=== PATIENT | female | born 1945 | race Caucasian/White ===

== ENCOUNTER 2016-10-04 11:18 | Day surgery (SDC) | payer MEDICARE ==
[2016-09-29 13:31] VITALS: BMI 55.4
[~2016-10-04 11:18] MED LIST: CLINDAMYCIN 900 MG in DEXTROSE 5% IN WATER 50 ML IVPB ONE; HYDROmorphone 1 MG/ML 1 ML SYRINGE IVP PRN; LACTATED RINGERS 1,000 ML IV SCH; LIDOCAINE 1% 20 ML VIAL (10MG/ML) FOR IV START INTRADERMA PRN; ONDANSETRON 4 MG/2 ML VIAL IVP ONE
== END 2016-10-04 12:25 | disposition home or self-care (01) ==
LOC: OR 11:18
PROVIDERS: ATTEND Orthopaedic Surgery Hand Surgery
DX: M79.646 Pain in unspecified finger(s) (principal); M19.031 Primary osteoarthritis, right wrist; R19.7 Diarrhea, unspecified; Z53.8 Procedure and treatment not carried out for other reasons

== ENCOUNTER → 2016-11-18 | Outpatient (CLI) | payer MEDICARE ==
--- NOTE | 2016-11-18 11:44 | MM ---
Reason for exam: screening (asymptomatic). Last mammogram was performed 1 year ago. History: Patient is postmenopausal. Family history of breast cancer in paternal cousin at age 69. Physical Findings: A clinical breast exam by your physician is recommended on an annual basis and results should be correlated with mammographic findings. MG Screening Mammo w CAD Bilateral CC and MLO view(s) were taken. Prior study comparison: November 17, 2015, bilateral MG screening mammo w CAD. November 15, 2014, bilateral MG screening mammo w CAD. There are scattered fibroglandular densities. Finding: There are typically benign vascular, round, grouped/clustered calcifications in both breasts. There is no discrete abnormality. ASSESSMENT: Benign, BI-RAD 2 RECOMMENDATION: Routine screening mammogram of both breasts in 1 year.
== END | disposition home or self-care (01) ==
LOC: RADMAMWWP 09:09
PROVIDERS: ATTEND Family Medicine
DX: Z12.31 Encounter for screening mammogram for malignant neoplasm of breast (principal)
CPT/HCPCS: 82565; 84132; 84520; 85025

== ENCOUNTER → 2016-11-18 | Outpatient (CLI) | payer MEDICARE ==
[2016-11-18 10:40] LABS: Blood Urea Nitrogen 17 mg/dL (7-17); Non-African American GFR(MDRD) >60 (>60 ml/min/1.73 sqM); Potassium 4.8 mmol/L (3.5-5.1)
[2016-11-18 10:42] LABS: Basophils % (A) 0 %; CH 24.8; CHCM 29.3; Eosinophils # (A) 0.4 k/uL (0-0.7); Eosinophils % (A) 4 %; HCT 29.5 % (34.0-46.0); HDW 2.63; HGB 8.6 gm/dL (11.4-16.0); Hypochromasia Marked; Luc # (Auto) 0.21; Luc % (Auto) 2; Lymphocytes # (A) 1.3 k/uL (1.0-4.8); Lymphocytes % (A) 13 %; MCH 24.8 pg (25.0-35.0); MCHC 29.2 g/dL (31.0-37.0); Mean Platelet Volume 6.5; Monocytes # (A) 0.6 k/uL (0-1.0); Monocytes % (A) 7 %; Neutrophils # (A) 7.2 k/uL (1.3-7.7); Neutrophils % (A) 74 %; RBC 3.47 m/uL (3.80-5.40); RDW 15.5 % (11.5-15.5); WBC 9.7 k/uL (3.8-10.6); WBC (Perox) 11.03
== END | disposition home or self-care (01) ==
LOC: LABPAT 09:48
PROVIDERS: ATTEND Orthopaedic Surgery Hand Surgery
DX: Z01.812 Encounter for preprocedural laboratory examination (principal)
CPT/HCPCS: 82565; 84132; 84520; 85025

== ENCOUNTER 2016-11-22 10:43 | Day surgery (SDC) | payer MEDICARE ==
[~2016-11-22 10:43] MED LIST changes: -CLINDAMYCIN 900 MG in DEXTROSE 5% IN WATER 50 ML IVPB ONE; -HYDROmorphone 1 MG/ML 1 ML SYRINGE IVP PRN; -LIDOCAINE 1% 20 ML VIAL (10MG/ML) FOR IV START INTRADERMA PRN; +MIDAZOLAM 2 MG/2 ML VIAL IV PRN; +Pre Op ABX Message 1 EACH MISC MISCELLANE ONE; +fentaNYL (PF) 50 MCG/ML 2 ML AMP IV PRN
[2016-11-22 11:22] LABS: Glucose,Whole Blood 202 mg/dL (75-99)
[2016-11-22 11:23] VITALS: RESP 18; TEMP 98.5
--- NOTE | 2016-11-22 12:19 | P.ONQ ---
Anesthesiology Proc Note - PNB - Peripheral Nerve Block Performed Right Axillary Single Time Out Performed: Yes Indication: Acute Post-Operative Pain, Analgesia Specifically requested for management of pain by DrShantell: Soy aMldonado Sedation Type: Sedate with meaningful contact maintained Preparation: Sterile Prep Position: Supine Catheter: None Needle Types: Other (see comment) (stimuplex) Needle Size: 50mm (2") Needle Gauge: Other (see comment) (22) Technique: Ultrasound Injectate: Other (see comment) (15 cc 2% lidocaine + 15cc .05% Robivicaine) Adjunct: Epinephrine (see comment for dilution ratio) (1:200,000) Narrative: Patient was quite heavyset and the structures in question were quite deep and rather poorly visualized. Blood Aspirated: No Pain Paresthesia on Injection Noted: No Resistance on Injection: Normal Events: Uneventful and Well Tolerated
[2016-11-22] MEDS ORDERED: LIDOCAINE 2%-EPI 1:100,000 20 ML VIAL ONE (12:41)
[2016-11-22] MEDS ORDERED: ROPIVACAINE 5 MG/ML 30 ML VIAL ONE (12:41)
[2016-11-22] MEDS ORDERED: KETAMINE 10 MG/ML 20 ML VIAL ONE (12:41)
[2016-11-22] MEDS ORDERED: GLYCOPYRROLATE 0.2 MG/ML 2 ML VIAL ONE (12:41)
[2016-11-22] MEDS ORDERED: MIDAZOLAM 2 MG/2 ML VIAL ONE (12:41)
[2016-11-22] MEDS ORDERED: PROPOFOL 10 MG/ML 20 ML VIAL IV ONE (12:41)
[2016-11-22] MEDS ORDERED: CLINDAMYCIN IRRIGATION ONE (13:09)
[2016-11-22] MEDS ORDERED: SODIUM CHLORIDE 0.9% IRRIGATION ONE (13:09)
[2016-11-22] MEDS ORDERED: LACTATED RINGERS 1,000 ML IV ONE (13:22)
[2016-11-22 14:09] VITALS: BP 130/60; PULSE 99
[2016-11-22 14:18] LABS: Glucose,Whole Blood 163 mg/dL (75-99)
--- NOTE | 2016-11-30 07:53 | OP ---
DATE OF SERVICE: 11/22/2016 SURGEON: JAMEL SMITH DO HANDKERCHIEF PRESSER: PREOPERATIVE DIAGNOSES: 1. Osteoarthritis MP joint right middle finger. 2. Right carpal tunnel syndrome. POSTOPERATIVE DIAGNOSES: 1. Osteoarthritis MP joint right middle finger. 2. Right carpal tunnel syndrome. OPERATION: 1. Silastic MP arthroplasty right middle finger. 2. Open carpal tunnel release. ANESTHESIA: ESTIMATED BLOOD LOSS: SPECIMENS REMOVED: COMPLICATIONS: OPERATIVE FINDINGS: DESCRIPTION OF PROCEDURE: A 71-year-old woman is taken to the operative suite, given IV sedation to supplement an extended digital block of her right middle finger and midline carpal tunnel incision in the proximal palm. Anesthesia was provided with a combination of Xylocaine and Marcaine, both without epinephrine. Her hand was prepped and draped in the usual manner, was then elevated, exsanguinated and cuff was inflated to 250 mmHg. Open carpal tunnel release was first performed in the usual manner. A proximal midline incision 1 to 2 cm was used. Dissection was taken through the palmar fascia to the transverse carpal ligament which was incised under direct vision. A limited visualization of the carpal tunnel demonstrated no abnormalities. This wound was irrigated and attention was turned to the MP joint of the right middle finger. A transverse incision was made over the MP joint. The extensor mechanism was identified and incised along its ulnar border and included an ulnar intrinsic release. The extensor mechanism was then reflected radially, exposing the capsule which was incised longitudinally in the dorsal aspect. A partial collateral ligament release was performed, exposing the head of the metacarpal. This was osteotomized using an oscillating saw. An awl was then used to begin the intramedullary canals of both the third metacarpal and the proximal phalanx of the middle finger. Subsequently larger rasps were then used to enlarge the canals into an appropriate size prosthesis was noted. The wound was thoroughly irrigated. After a trial prosthesis was used, the real prosthesis was inserted with no touch technique. The capsule was closed with 4-0 PDS suture. The extensor mechanism was noted to be stable and in alignment. Tourniquet was released. Hemostasis was satisfactory. Skin was closed with 5-0 nylon suture. Soft, bulky dressing was applied and patient was taken to the recovery room in satisfactory condition.
== END 2016-11-22 14:55 | disposition home or self-care (01) ==
LOC: OR 10:43
PROVIDERS: ATTEND Orthopaedic Surgery Hand Surgery
DX: G56.01 Carpal tunnel syndrome, right upper limb (principal); M19.041 Primary osteoarthritis, right hand; I25.10 Atherosclerotic heart disease of native coronary artery without angina pectoris; I10 Essential (primary) hypertension; Z87.891 Personal history of nicotine dependence; I25.2 Old myocardial infarction; E78.5 Hyperlipidemia, unspecified; E11.9 Type 2 diabetes mellitus without complications; Z79.4 Long term (current) use of insulin; Z79.84 Long term (current) use of oral hypoglycemic drugs; Z79.02 Long term (current) use of antithrombotics/antiplatelets; Z79.891 Long term (current) use of opiate analgesic; Z79.899 Other long term (current) drug therapy; Z88.1 Allergy status to other antibiotic agents; Z88.5 Allergy status to narcotic agent; Z88.0 Allergy status to penicillin; Z88.8 Allergy status to other drugs, medicaments and biological substances
CPT/HCPCS: 64721; 26536; 64415; C1713; J2250; J2405; J3010; J2795; J2704

== ENCOUNTER → 2017-12-06 | Outpatient (CLI) | payer MEDICARE ==
--- NOTE | 2017-12-07 10:50 | MM ---
Reason for exam: screening (asymptomatic). Last mammogram was performed 1 year and 1 month ago. History: Patient is postmenopausal. Family history of breast cancer in paternal cousin at age 69. Physical Findings: A clinical breast exam by your physician is recommended on an annual basis and results should be correlated with mammographic findings. MG Screening Mammo w CAD Bilateral CC, MLO, and XCCL view(s) were taken. Prior study comparison: November 18, 2016, bilateral MG screening mammo w CAD. November 17, 2015, bilateral MG screening mammo w CAD. There are scattered fibroglandular densities. There are typically benign round calcifications in both breasts. There is no discrete abnormality. ASSESSMENT: Benign, BI-RAD 2 RECOMMENDATION: Routine screening mammogram of both breasts in 1 year.
== END | disposition home or self-care (01) ==
LOC: RADMAMWWP 10:51
PROVIDERS: ATTEND Family Medicine
DX: Z12.31 Encounter for screening mammogram for malignant neoplasm of breast (principal)
CPT/HCPCS: 77067

== ENCOUNTER → 2018-12-07 | Outpatient (CLI) | payer MEDICARE ==
[2018-12-07 14:40] LABS: Anisocytosis Slight; HCT 30.7 % (34.0-46.0); HGB 8.9 gm/dL (11.4-16.0); Hypochromasia Marked; MCH 25.6 pg (25.0-35.0); MCHC 28.8 g/dL (31.0-37.0); MCV 88.9 fL (80.0-100.0); Mean Platelet Volume 6.8; Platelet Count 440 k/uL (150-450); RBC 3.46 m/uL (3.80-5.40); RDW 16.5 % (11.5-15.5); Reticulocyte % 1.8 % (0.5-2.0); WBC 9.7 k/uL (3.8-10.6)
[2018-12-07 14:53] LABS: Albumin 3.9 g/dL (3.5-5.0); Calcium 9.3 mg/dL (8.4-10.2); Potassium 5.7 mmol/L (3.5-5.1); Total Bilirubin 0.2 mg/dL (0.2-1.3); Total Protein 7.4 g/dL (6.3-8.2)
[2018-12-07 20:46] LABS: Iron Saturation 6.15 (12.00-45.00); Vitamin D 25 Hydroxy 29.2 ng/mL (30.0-100.0)
--- NOTE | 2018-12-08 10:50 | MM ---
Reason for exam: screening (asymptomatic). Last mammogram was performed 1 year ago. History: Patient is postmenopausal. Family history of breast cancer in paternal cousin at age 69. Physical Findings: A clinical breast exam by your physician is recommended on an annual basis and results should be correlated with mammographic findings. MG Screening Mammo w CAD Bilateral CC and MLO view(s) were taken. Prior study comparison: December 06, 2017, bilateral MG screening mammo w CAD. November 18, 2016, bilateral MG screening mammo w CAD. There are scattered fibroglandular densities. There is no discrete abnormality. No significant changes when compared with prior studies. ASSESSMENT: Negative, BI-RAD 1 RECOMMENDATION: Routine screening mammogram of both breasts in 1 year.
== END | disposition home or self-care (01) ==
LOC: RADMAMWWP 13:25
PROVIDERS: ATTEND Family Medicine
DX: Z12.31 Encounter for screening mammogram for malignant neoplasm of breast (principal); I10 Essential (primary) hypertension; E11.9 Type 2 diabetes mellitus without complications; E78.5 Hyperlipidemia, unspecified; D64.9 Anemia, unspecified; E53.8 Deficiency of other specified B group vitamins
CPT/HCPCS: 36415; 77067; 80053; 82306; 82728; 83036; 83540; 83550; 85027; 85045

== ENCOUNTER → 2019-04-19 | Outpatient (CLI) | payer MEDICARE ==
--- NOTE | 2019-04-19 17:00 | XR ---
EXAMINATION TYPE: XR chest 2V DATE OF EXAM: 04/19/2019 COMPARISON: Prior chest x-ray 06/01/2016 HISTORY: Shortness of breath, cough TECHNIQUE: Frontal and lateral views of the chest are obtained. FINDINGS: Patient is rotated. Strand-like densities at the lung bases are noted. There is no focal ai r space opacity, pleural effusion, or pneumothorax seen. The cardiac silhouette size is within dusty l limits, stable. The osseous structures are intact. IMPRESSION: Some subsegmental basilar atelectatic changes are noted. Follow-up as indicated.
== END | disposition home or self-care (01) ==
LOC: RADXRMAIN 13:56
PROVIDERS: ATTEND Family Medicine
DX: J98.11 Atelectasis (principal)
CPT/HCPCS: 71046

== ENCOUNTER 2019-11-04 01:26 | Observation (INO) | payer MEDICARE ==
--- NOTE | 2019-11-04 04:17 | XR ---
EXAMINATION TYPE: XR chest 1V portable DATE OF EXAM: 11/04/2019 COMPARISON: 04/19/2019 HISTORY: Chest pain TECHNIQUE: FINDINGS: Heart and mediastinum are normal. Lungs are clear. Diaphragm is normal. Bony thorax appears normal. There are chest leads. IMPRESSION: Normal chest. No change.
[2019-11-04 04:24] LABS: Anisocytosis Slight; Basophils % (A) 0 %; Eosinophils # (A) 0.3 k/uL (0-0.7); Eosinophils % (A) 2 %; HCT 25.2 % (34.0-46.0); HGB 7.4 gm/dL (11.4-16.0); Hypochromasia Marked; Lymphocytes # (A) 1.5 k/uL (1.0-4.8); Lymphocytes % (A) 13 %; MCH 22.2 pg (25.0-35.0); MCHC 29.4 g/dL (31.0-37.0); MCV 75.7 fL (80.0-100.0); Mean Platelet Volume 7.2; Microcytosis Moderate; Monocytes # (A) 0.8 k/uL (0-1.0); Monocytes % (A) 7 %; Neutrophils # (A) 8.7 k/uL (1.3-7.7); Neutrophils % (A) 76 %; Platelet Count 499 k/uL (150-450); RBC 3.32 m/uL (3.80-5.40); RDW 18.3 % (11.5-15.5); WBC 11.5 k/uL (3.8-10.6)
[2019-11-04 04:33] LABS: ALT 11 U/L (4-34); AST 21 U/L (14-36); African American GFR (CKD) 84 (>60 ml/min/1.73 sqM); Albumin 3.4 g/dL (3.5-5.0); Alkaline Phosphatase 67 U/L (38-126); Amylase <30 U/L (30-110); Anion Gap 8 mmol/L; Blood Urea Nitrogen 25 mg/dL (7-17); Carbon Dioxide 23 mmol/L (22-30); Chloride 106 mmol/L (98-107); Glucose 138 mg/dL (74-99); Magnesium 1.8 mg/dL (1.6-2.3); Non-African American GFR(CKD) 73 (>60 ml/min/1.73 sqM); Potassium 4.4 mmol/L (3.5-5.1); Sodium 137 mmol/L (137-145); Total Bilirubin 0.1 mg/dL (0.2-1.3); Total Protein 6.9 g/dL (6.3-8.2)
[2019-11-04 05:15] LABS: Partial Thromboplastin Time 23.6 sec (22.0-30.0); Prothrombin Time 10.2 sec (9.0-12.0)
[2019-11-04] MEDS ORDERED: NITROGLYCERIN SL TABS 0.4 MG TAB SUBLINGUAL PRN ×2 (05:55→11:32)
[2019-11-04] MEDS ORDERED: ENOXAPARIN 150 MG/ML SYRINGE SQ STA (06:00)
--- NOTE | 2019-11-04 06:01 | ED ---
Chest Pain HPI - General Chief Complaint: Chest Pain Stated Complaint: Chest Pain Time Seen by Provider: 11/04/19 03:18 Source: patient, EMS Mode of arrival: EMS Limitations: no limitations - History of Present Illness MD Complaint: chest pain -: hour(s) Onset: during rest Pain Location: substernal Pain Radiation: LUE Severity: mild Quality: heaviness Consistency: now resolved Improves With: nothing Worsens With: nothing Anginal Symptoms: dyspnea Treatments Prior to Arrival: nitroglycerin - Related Data Home Medications Medication Instructions Recorded Confirmed Ascorbic Acid [Vitamin C] 500 mg PO DAILY 08/21/15 11/04/19 Aspirin 81 mg PO HS 08/21/15 11/04/19 Atorvastatin Calcium [Lipitor] 20 mg PO Q48H 08/21/15 11/04/19 Clopidogrel Bisulfate [Plavix] 75 mg PO DAILY 08/21/15 11/04/19 Cranberry Fruit Concentrate [Azo 250 mg PO BID 08/21/15 11/04/19 Cranberry] Ezetimibe [Zetia] 10 mg PO Q48H 08/21/15 11/04/19 Gabapentin 300 mg PO W/SUPPER 08/21/15 11/04/19 INSULIN LISPRO (HumaLOG) [HumaLOG] 9 units SQ AC-BRKFST 08/21/15 11/04/19 Isosorbide Mononitrate ER [Imdur] 60 mg PO DAILY 08/21/15 11/04/19 Metoprolol Tartrate [Lopressor] 50 mg PO QAM 08/21/15 11/04/19 Pioglitazone HCl [Actos] 15 mg PO DAILY 08/21/15 11/04/19 amLODIPine [Norvasc] 5 mg PO HS 08/21/15 11/04/19 Calcium Carb-Vit D 500Mg-200Un 1 tab PO DAILY 06/01/16 11/04/19 [Oscal 500+D] Cholecalciferol [Vitamin D3] 1,000 unit PO DAILY 06/01/16 11/04/19 INSULIN LISPRO (humaLOG) [HumaLOG] 8 units SQ DAILY@1200 06/01/16 11/04/19 INSULIN LISPRO (humaLOG) [HumaLOG] 9 units SQ AC-SUPPER 06/01/16 11/04/19 Insulin Glargine [Lantus] 28 unit SQ HS 06/01/16 11/04/19 Metoprolol Tartrate [Lopressor] 25 mg PO HS 06/01/16 11/04/19 Gabapentin 300 mg PO HS 11/17/16 11/04/19 Multivitamins, Thera [Multivitamin 1 tab PO DAILY 11/17/16 11/04/19 (formulary)] Tramadol(Dose Unknown) 1 tab PO DAILY PRN 11/17/16 11/04/19 metFORMIN HCL [Glucophage] 1,000 mg PO BID 11/17/16 11/04/19 Celecoxib [CeleBREX] 200 mg PO DAILY 11/04/19 11/04/19 Furosemide [Lasix] 20 mg PO DAILY 11/04/19 11/04/19 predniSONE 5 mg PO DAILY 11/04/19 11/04/19 Previous Rx's Medication Instructions Recorded Cyanocobalamin [Vitamin B-12] 500 mcg PO DAILY #30 tablet 06/02/16 Allergies Allergy/AdvReac Type Severity Reaction Status Date / Time acetaminophen [From [place]] Allergy Severe Diarrhea Verified 11/04/19 01:41 hydrocodone [From [place]] Allergy Severe Diarrhea Verified 11/04/19 01:41 meloxicam [From Mobic] Allergy Diarrhea Verified 11/04/19 01:41 Penicillins Allergy Rash/Hives Verified 11/04/19 01:41 tobramycin Allergy Rash/Hives Verified 11/04/19 01:41 Review of Systems ROS Statement: Those systems with pertinent positive or pertinent negative responses have been documented in the HPI. ROS Other: All systems not noted in ROS Statement are negative. Constitutional: Denies: fever, chills Respiratory: Reports: dyspnea. Denies: cough, wheezes Cardiovascular: Reports: chest pain. Denies: palpitations, orthopnea, edema, syncope Gastrointestinal: Denies: abdominal pain, nausea, vomiting, diarrhea, constipation Genitourinary: Denies: dysuria, hematuria Musculoskeletal: Denies: back pain Skin: Denies: rash Neurological: Denies: headache, weakness, numbness EKG Findings - EKG Comments: EKG Findings:: Possible old inferior infarct. - EKG Results: EKG: interpreted by TRISHAD, sinus rhythm, normal axis, normal QRS, normal ST/T EKG shows: tachycardia (Rate 103 bpm) Past Medical History Past Medical History: Chest Pain / Angina, Diabetes Mellitus, Hearing Disorder / Deafness, Hyperlipidemia, Hypertension, Myocardial Infarction ([place]), Osteoarthritis (OA) Additional Past Medical History / Comment(s): power chair- ambulates only a few feet, swelling of lower leg comes and goes, urinary leakage , neuropathy Last Myocardial Infarction Date:: 1991 History of Any Multi-Drug Resistant Organisms: None Reported Past Surgical History: Appendectomy, Heart Catheterization, Hysterectomy, Orthopedic Surgery, Tonsillectomy Additional Past Surgical History / Comment(s): ki hip replacements, hemorrhoidectomy Past Anesthesia/Blood Transfusion Reactions: Postoperative Nausea & Vomiting (PONV) Past Psychological History: No Psychological Hx Reported Smoking Status: Former smoker Past Alcohol Use History: None Reported Past Drug Use History: None Reported - Past Family History Father Family Medical History: Myocardial Infarction ([place]) Mother Family Medical History: CVA/TIA, Diabetes Mellitus Sister(s) Family Medical History: Cancer General Exam Limitations: no limitations General appearance: alert, in no apparent distress Head exam: Present: atraumatic, normocephalic Eye exam: Present: normal appearance. Absent: scleral icterus, conjunctival injection Neck exam: Present: normal inspection Respiratory exam: Present: normal lung sounds bilaterally. Absent: respiratory distress, wheezes, rales, rhonchi, stridor Cardiovascular Exam: Present: regular rate, normal rhythm, systolic murmur. Absent: diastolic murmur, rubs, gallop GI/Abdominal exam: Present: soft. Absent: distended, tenderness, guarding, rebound Extremities exam: Present: normal inspection, normal capillary refill. Absent: pedal edema, calf tenderness Back exam: Present: normal inspection. Absent: CVA tenderness (R), CVA tenderness (L) Neurological exam: Present: alert Skin exam: Present: warm, dry, intact, normal color. Absent: rash Course Vital Signs 11/04/19 01:35 Temperature 98.5 F Pulse Rate 106 H Respiratory 16 Rate Blood Pressure 129/58 O2 Sat by Pulse 97 Oximetry Disposition Clinical Impression: Chest pain Disposition: ADMITTED IP TO THIS HOSP Condition: Fair
[2019-11-04 07:26] LABS: Glucose,Whole Blood 176 mg/dL (75-99)
[2019-11-04] MEDS ORDERED: ATORVASTATIN 20 MG TAB PO SCH (09:00)
[2019-11-04] MEDS ORDERED: metFORMIN 500 MG TAB PO SCH (09:00)
[2019-11-04] MEDS ORDERED: METOPROLOL TARTRATE 50 MG TAB PO SCH ×2 (09:00→21:00)
--- NOTE | 2019-11-04 09:59 | P.CRDCN ---
History of Present Illness Consult date: 11/04/19 Requesting physician: Val Spears Reason for Consult (text): chest pain Chief complaint: chest pain History of present illness: This is a pleasant 73-year-old female patient who is followed with Dr. Bebo Barajas in the office in the past. Has a past medical history of hypertension, hyperlipidemia, diabetes, significant arthritis, CAD with prior NV in 1991 and anemia with no known source of bleeding according to the patient. Presented to the emergency department with complaints of midsternal chest discomfort she described as a burning type pain that occurred at rest. She did take sublingual nitro at home without relief as well as 4 baby aspirin. According to the patient the pain subsided shortly after arrival here. She was prompted to call EMS because his symptoms were very similar to what she experienced with her NV in 1991. At that time she did undergo cardiac catheterization and intervention for a blockage which according to the patient reoccluded and a subsequent cardia c catheterization showed collaterals. She has not followed up with Dr. JENNIFER Barajas recently. Her mobility is quite limited due to arthritis and she uses a motorized scooter and walker. EKG on admission showed sinus tachycardia with some artifact but no clear-cut evidence of acute ischemia. Chest x-ray showed normal chest, no change. Labs on admission showed a white blood cell count 11,500, hemoglobin 7.4, BUN 25, creatinine 0.8, and troponin 0.053. Hemoglobin on 09/20/2019 was also 7.4. Upon examination, patient is resting comfortably in bed. She's got no further complaints of chest discomfort. She does have complaints of dyspnea on exertion but this is stable and unchanged from her ba seline. Complains of chronic edema in the right lower extremity. Denies complaints of palpitations, dizziness, lightheadedness, syncope or near syncope. She's had no nausea and vomiting. Past Medical History Past Medical History: Chest Pain / Angina, Diabetes Mellitus, Hearing Disorder / Deafness, Hyperlipidemia, Hypertension, Myocardial Infarction ([place]), Osteoarthritis (OA) Additional Past Medical History / Comment(s): power chair- ambulates only a few feet, swelling of lower leg comes and goes, urinary leakage , neuropathy Last Myocardial Infarction Date:: 1991 History of Any Multi-Drug Resistant Organisms: None Reported Past Surgical History: Appendectomy, Heart Catheterization, Hysterectomy, Orthopedic Surgery, Tonsillectomy Additional Past Surgical History / Comment(s): ki hip replacements, hemorrhoidectomy Past Anesthesia/Blood Transfusion Reactions: Postoperative Nausea & Vomiting (PONV) Past Psychological History: No Psychological Hx Reported Smoking Status: Former smoker Past Alcohol Use History: None Reported Additional Past Alcohol Use History / Comment(s): smoked for 29 years 1ppd, quit november 1991 Past Drug Use History: None Reported - Past Family History Father Family Medical History: Myocardial Infarction ([place]) Mother Family Medical History: CVA/TIA, Diabetes Mellitus Sister(s) Family Medical History: Cancer Medications and Allergies Home Medications Medication Instructions Recorded Confirmed Type Ascorbic Acid [Vitamin C] 500 mg PO DAILY 08/21/15 11/04/19 History Aspirin 81 mg PO HS 08/21/15 11/04/19 History Atorvastatin Calcium [Lipitor] 20 mg PO Q48H 08/21/15 11/04/19 History Clopidogrel Bisulfate [Plavix] 75 mg PO DAILY 08/21/15 11/04/19 History Cranberry Fruit Concentrate [Azo 250 mg PO BID 08/21/15 11/04/19 History Cranberry] Ezetimibe [Zetia] 10 mg PO Q48H 08/21/15 11/04/19 History Gabapentin 300 mg PO W/SUPPER 08/21/15 11/04/19 History INSULIN LISPRO (HumaLOG) [HumaLOG] 9 units SQ AC-BRKFST 08/21/15 11/04/19 History Isosorbide Mononitrate ER [Imdur] 60 mg PO DAILY 08/21/15 11/04/19 History Metoprolol Tartrate [Lopressor] 50 mg PO QAM 08/21/15 11/04/19 History Pioglitazone HCl [Actos] 15 mg PO DAILY 08/21/15 11/04/19 History amLODIPine [Norvasc] 5 mg PO HS 08/21/15 11/04/19 History Calcium Carb-Vit D 500Mg-200Un 1 tab PO DAILY 06/01/16 11/04/19 History [Oscal 500+D] Cholecalciferol [Vitamin D3] 1,000 unit PO DAILY 06/01/16 11/04/19 History INSULIN LISPRO (humaLOG) [HumaLOG] 8 units SQ DAILY@1200 06/01/16 11/04/19 History INSULIN LISPRO (humaLOG) [HumaLOG] 9 units SQ AC-SUPPER 06/01/16 11/04/19 History Insulin Glargine [Lantus] 28 unit SQ HS 06/01/16 11/04/19 History Metoprolol Tartrate [Lopressor] 25 mg PO HS 06/01/16 11/04/19 History Cyanocobalamin [Vitamin B-12] 500 mcg PO DAILY #30 tablet 06/02/16 11/04/19 Rx Gabapentin 300 mg PO HS 11/17/16 11/04/19 History Multivitamins, Thera [Multivitamin 1 tab PO DAILY 11/17/16 11/04/19 History (formulary)] Tramadol(Dose Unknown) 1 tab PO DAILY PRN 11/17/16 11/04/19 History metFORMIN HCL [Glucophage] 1,000 mg PO BID 11/17/16 11/04/19 History Celecoxib [CeleBREX] 200 mg PO DAILY 11/04/19 11/04/19 History Furosemide [Lasix] 20 mg PO DAILY 11/04/19 11/04/19 History predniSONE 5 mg PO DAILY 11/04/19 11/04/19 History Allergies Allergy/AdvReac Type Severity Reaction Status Date / Time acetaminophen [From [place]] Allergy Severe Diarrhea Verified 11/04/19 01:41 hydrocodone [From [place]] Allergy Severe Diarrhea Verified 11/04/19 01:41 meloxicam [From Mobic] Allergy Diarrhea Verified 11/04/19 01:41 Penicillins Allergy Rash/Hives Verified 11/04/19 01:41 tobramycin Allergy Rash/Hives Verified 11/04/19 01:41 Physical Exam Vitals: Vital Signs Temp Pulse Pulse Resp BP BP Pulse Ox 11/04/19 06:59 97.9 F 95 18 145/71 95 11/04/19 06:31 76 16 131/65 100 11/04/19 01:35 98.5 F 106 H 16 129/58 97 Intake and Output 11/03/19 11/04/19 11/04/19 21:59 06:59 14:59 Other: Weight PHYSICAL EXAMINATION: HEENT: Head is atraumatic, normocephalic. Pupils equal, round. Neck is supple. There is no elevated jugular venous pressure. HEART EXAMINATION: Heart sounds regular, S1 and S2 with a systolic murmur. CHEST EXAMINATION: Lungs reveal expiratory wheezing throughout. No chest wall tenderness is noted on palpation or with deep breathing. ABDOMEN: Soft, obese, nontender. Bowel sounds are heard. No organomegaly noted. EXTREMITIES: 1+ peripheral pulses with evidence of mild peripheral edema and no calf tenderness noted. NEUROLOGIC patient is awake, alert and oriented x3. . Results 11/04/19 04:13 11/04/19 04:13 Cardiac Enzymes 11/04/19 11/04/19 Range/Units 04:13 04:13 AST 21 (14-36) U/L Troponin I 0.053 H* (0.000-0.034) ng/mL Coagulation 11/04/19 Range/Units 04:56 PT 10.2 (9.0-12.0) sec APTT 23.6 (22.0-30.0) sec CBC 11/04/19 Range/Units 04:13 WBC 11.5 H (3.8-10.6) k/uL RBC 3.32 L (3.80-5.40) m/uL Hgb 7.4 L (11.4-16.0) gm/dL Hct 25.2 L (34.0-46.0) % Plt Count 499 H (150-450) k/uL Comprehensive Metabolic Panel 11/04/19 Range/Units 04:13 Sodium 137 (137-145) mmol/L Potassium 4.4 (3.5-5.1) mmol/L Chloride 106 (98-107) mmol/L Carbon Dioxide 23 (22-30) mmol/L BUN 25 H (7-17) mg/dL Creatinine 0.80 (0.52-1.04) mg/dL Glucose 138 H (74-99) mg/dL Calcium 9.0 (8.4-10.2) mg/dL AST 21 (14-36) U/L ALT 11 (4-34) U/L Alkaline Phosphatase 67 (38-126) U/L Total Protein 6.9 (6.3-8.2) g/dL Albumin 3.4 L (3.5-5.0) g/dL Current Medications Generic Name Dose Route Start Last Admin Trade Name Freq PRN Reason Stop Dose Admin Amlodipine Besylate 5 mg 11/04/19 21:00 Norvasc PO HS [facility] Ascorbic Acid 500 mg 11/04/19 09:00 Vitamin C PO DAILY [facility] Atorvastatin Calcium 20 mg 11/04/19 09:00 Lipitor PO Q48H [facility] Cholecalciferol 1,000 unit 11/04/19 09:00 Vitamin D3 (25 Mcg = 1000 Iu) PO DAILY [facility] Clopidogrel Bisulfate 75 mg 11/04/19 09:00 Plavix PO DAILY [facility] Ezetimibe 10 mg 11/05/19 09:00 Zetia PO Q48H [facility] Furosemide 20 mg 11/04/19 09:00 Lasix PO DAILY [facility] Gabapentin 300 mg 11/04/19 17:30 Neurontin PO W/SUPPER [facility] Gabapentin 300 mg 11/04/19 21:00 Neurontin PO HS [facility] Insulin Detemir 28 unit 11/04/19 21:00 Levemir SQ HS [facility] Isosorbide Mononitrate 60 mg 11/04/19 09:00 Imdur PO DAILY [facility] Metformin HCl 1,000 mg 11/04/19 09:00 Glucophage PO BID [facility] Metoprolol Tartrate 50 mg 11/04/19 09:00 Lopressor PO QAM [facility] Metoprolol Tartrate 25 mg 11/04/19 21:00 Lopressor PO HS [facility] Nitroglycerin 0.4 mg 11/04/19 05:55 Nitrostat SUBLINGUAL Q5M PRN Chest Pain Non-Formulary Medication 200 mg 11/04/19 09:00 Celecoxib [Celebrex] PO DAILY [facility] Pioglitazone HCl 15 mg 11/04/19 09:00 Actos PO DAILY [facility] Prednisone 5 mg 11/04/19 09:00 PO DAILY [facility] Sodium Chloride 10 ml 11/04/19 09:00 Saline Flush IV BID [facility] Intake and Output 11/03/19 11/04/19 11/04/19 21:59 06:59 14:59 Other: Weight 11/04/19 04:13 11/04/19 04:13 Assessment and Plan Assessment: #1 chest pain, similar to symptoms with previous NV, initial troponin mildly abnormal #2 prior history of CAD and NV in the past #3 hypertension #4 diabetes mellitus type 2 #5 hyperlipidemia #6 morbid obesity #7 arthritis Plan: From cardiology perspective, we will stop Plavix and add aspirin 81 mg by mouth daily. Obtain a 2-D echo with Doppler to assess cardiac structure and function. Continue to follow the trend of the troponins. We will schedule the patient to undergo cardiac catheterization by Dr. JENNIFER Barajas tomorrow for definitive diagnosis. The procedure including the risks, benefits and potential outcomes were discussed with the patient. Further recommendations to follow. PAPER CONE MACHINE TENDER note has been reviewed, I agree with a documented findings and plan of care. Patient was seen and examined.
[2019-11-04] MEDS: predniSONE 5 MG TAB PO SCH (10:42)
[2019-11-04] MEDS: FUROSEMIDE 20 MG TAB PO SCH (10:42)
[2019-11-04] MEDS: CHOLECALCIFEROL 1,000 UNIT TAB PO SCH (10:42)
[2019-11-04] MEDS: ISOSORBIDE MONONITRATE ER 60 MG TAB.ER.24H PO SCH (10:43)
[2019-11-04] MEDS: CLOPIDOGREL 75 MG TAB PO SCH (10:43)
[2019-11-04] MEDS: PIOGLITAZONE 15 MG TAB PO SCH (10:43)
[2019-11-04] MEDS: ASCORBIC ACID 500 MG TAB PO SCH (10:43)
[2019-11-04] MEDS: METOPROLOL TARTRATE 25 MG TAB PO SCH (11:27)
[2019-11-04] MEDS ORDERED: ALPRAZolam 0.5 MG TAB PO PRN (11:32)
[2019-11-04] MEDS ORDERED: SODIUM CHLORIDE 0.9% 1,000 ML in EMPTY BAG 1 BAG IV ONE (11:32)
[2019-11-04] MEDS ORDERED: ALPRAZolam 0.25 MG TAB PO PRN (11:32)
[2019-11-04] MEDS: ASPIRIN 81 MG PO SCH (11:38)
[2019-11-04] MEDS: ATORVASTATIN 40 MG TAB PO SCH (11:39)
--- NOTE | 2019-11-04 11:58 | P.HPIM ---
History of Present Illness H&P Date: 11/04/19 Chief Complaint: chest pain This is a 73-year-old female patient of Dr. Jacques with past medical history of hypertension, hyperlipidemia, diabetes mellitus type II insulin requiring, generalized osteoarthritis, CAD with prior AR in 1991 and anemia with unknowncause. Patient states that she normally sleeps in her lift chair. She developed midsternal chest pain initially anterior and then later radiated to her back in the back of her upper left arm. She took 3 nitroglycerin without any improvement. She then took 4 baby aspirin. Her contacted 911 and EMS brought her into the hospital. She states that her chest pain went away while she was in the ambulance. She denies any history of choking on food. Patient denies any lightheadedness or dizziness, no palpitations. No cough or sputum production. Patient ambulates very little. She uses a power chair, she sleeps in a lift chair. Patient thinks that she had a stress test maybe [address] JENNIFER Barajas. Patient came into [facility] emergency center for evaluation. WBC 11.5, hemoglobin 7.4, BUN 25, creatinine 0.8, and troponin 0.053 and repeat at 0.237. baseline hemoglobin is around 8.5. Amylase and lipase were normal. Liver function tests normal. Chest x-ray was normal. EKG was a sinus tachycardia without acute ST changes. Patient was admitted to the cardiac stepdown unit and cardiology consult requested and patient scheduled for heart catheterization. Review of Systems Constitutional: Denies chills, Denies fatigue, Denies fever, Denies poor appetite, Denies weakness, Denies weight loss Eyes: denies blurred vision, denies pain Ears: bilateral: decreased hearing Cardiovascular: Reports chest pain, Reports dyspnea on exertion, Denies edema, Denies leg edema, Denies lightheadedness, Denies shortness of breath, Denies syncope Respiratory: Denies cough, Denies cough with sputum, Denies dyspnea, Denies excessive sputum, Denies hemoptysis, Denies home oxygen, Denies respiratory infections, Denies wheezing Gastrointestinal: Denies abdominal pain, Denies constipation, Denies diarrhea, D enies nausea, Denies vomiting Genitourinary: Denies dysuria, Denies hematuria, Denies urgency, Denies urinary frequency Musculoskeletal: Reports muscle weakness, Denies myalgias Integumentary: Denies pruritus, Denies rash Neurological: Denies change in mentation, Denies change in speech, Denies numb ness, Denies weakness Psychiatric: Denies anxiety, Denies depression Endocrine: Denies fatigue, Denies weight change Past Medical History Past Medical History: Chest Pain / Angina, Diabetes Mellitus, Hearing Disorder / Deafness, Hyperlipidemia, Hypertension, Myocardial Infarction (AR), Osteoarthritis (OA) Additional Past Medical History / Comment(s): power chair- ambulates only a few feet, swelling of lower leg comes and goes, urinary leakage , neuropathy Last Myocardial Infarction Date:: 1991 History of Any Multi-Drug Resistant Organisms: None Reported Past Surgical History: Appendectomy, Heart Catheterization, Hysterectomy, Orthopedic Surgery, Tonsillectomy Additional Past Surgical History / Comment(s): ki hip replacements, hemorrhoidectomy Past Anesthesia/Blood Transfusion Reactions: Postoperative Nausea & Vomiting (PONV) Past Psychological History: No Psychological Hx Reported Smoking Status: Former smoker Past Alcohol Use History: None Reported Additional Past Alcohol Use History / Comment(s): smoked for 29 years 1ppd, quit november 1991 Past Drug Use History: None Reported - Past Family History Father Family Medical History: Myocardial Infarction (AR) Mother Family Medical History: CVA/TIA, Diabetes Mellitus Sister(s) Family Medical History: Cancer Medications and Allergies Home Medications Medication Instructions Recorded Confirmed Type Ascorbic Acid [Vitamin C] 500 mg PO DAILY 08/21/15 11/04/19 History Aspirin 81 mg PO HS 08/21/15 11/04/19 History Atorvastatin Calcium [Lipitor] 20 mg PO Q48H 08/21/15 11/04/19 History Clopidogrel Bisulfate [Plavix] 75 mg PO DAILY 08/21/15 11/04/19 History Cranberry Fruit Concentrate [Azo 250 mg PO BID 08/21/15 11/04/19 History Cranberry] Ezetimibe [Zetia] 10 mg PO Q48H 08/21/15 11/04/19 History Gabapentin 300 mg PO W/SUPPER 08/21/15 11/04/19 History INSULIN LISPRO (HumaLOG) [HumaLOG] 9 units SQ AC-BRKFST 08/21/15 11/04/19 History Isosorbide Mononitrate ER [Imdur] 60 mg PO DAILY 08/21/15 11/04/19 History Metoprolol Tartrate [Lopressor] 50 mg PO QAM 08/21/15 11/04/19 History Pioglitazone HCl [Actos] 15 mg PO DAILY 08/21/15 11/04/19 History amLODIPine [Norvasc] 5 mg PO HS 08/21/15 11/04/19 History Calcium Carb-Vit D 500Mg-200Un 1 tab PO DAILY 06/01/16 11/04/19 History [Oscal 500+D] Cholecalciferol [Vitamin D3] 1,000 unit PO DAILY 06/01/16 11/04/19 History INSULIN LISPRO (humaLOG) [HumaLOG] 8 units SQ DAILY@1200 06/01/16 11/04/19 History INSULIN LISPRO (humaLOG) [HumaLOG] 9 units SQ AC-SUPPER 06/01/16 11/04/19 History Insulin Glargine [Lantus] 28 unit SQ HS 06/01/16 11/04/19 History Metoprolol Tartrate [Lopressor] 25 mg PO HS 06/01/16 11/04/19 History Cyanocobalamin [Vitamin B-12] 500 mcg PO DAILY #30 tablet 06/02/16 11/04/19 Rx Gabapentin 300 mg PO HS 11/17/16 11/04/19 History Multivitamins, Thera [Multivitamin 1 tab PO DAILY 11/17/16 11/04/19 History (formulary)] Tramadol(Dose Unknown) 1 tab PO DAILY PRN 11/17/16 11/04/19 History metFORMIN HCL [Glucophage] 1,000 mg PO BID 11/17/16 11/04/19 History Celecoxib [CeleBREX] 200 mg PO DAILY 11/04/19 11/04/19 History Furosemide [Lasix] 20 mg PO DAILY 11/04/19 11/04/19 History predniSONE 5 mg PO DAILY 11/04/19 11/04/19 History Allergies Allergy/AdvReac Type Severity Reaction Status Date / Time acetaminophen [From [place]] Allergy Severe Diarrhea Verified 11/04/19 01:41 hydrocodone [From [place]] Allergy Severe Diarrhea Verified 11/04/19 01:41 meloxicam [From Mobic] Allergy Diarrhea Verified 11/04/19 01:41 Penicillins Allergy Rash/Hives Verified 11/04/19 01:41 tobramycin Allergy Rash/Hives Verified 11/04/19 01:41 Physical Exam Vitals: Vital Signs Temp Pulse Pulse Resp BP BP Pulse Ox 11/04/19 06:59 97.9 F 95 18 145/71 95 11/04/19 06:31 76 16 131/65 100 11/04/19 01:35 98.5 F 106 H 16 129/58 97 Intake and Output 11/03/19 11/04/19 11/04/19 21:59 06:59 14:59 Other: Weight Gen: This is a 73-year-old morbidly obese female. She is resting in bed and appears to be comfortable and in no acute distress. HEENT: Head is atraumatic, normocephalic. Pupils equal, round. Sclerae is ani cteric. NECK: Supple. No JVD. No lymphadenopathy. No thyromegaly. LUNGS: Clear to auscultation. No wheezes or rhonchi. No intercostal retractions. HEART: Regular rate and rhythm. Systolic murmur. ABDOMEN: Soft. Bowel sounds are present. No masses. No tenderness. No right upper quadrant tenderness. EXTREMITIES: Trace bilateral pedal edema. Mild tenderness to the bilateral lower legs. Patient states this is chronic. She states her legs are always sore. NEUROLOGICAL: Patient is awake, alert and oriented x3. Cranial nerves 2 through 12 are grossly intact. Results CBC & Chem 7: 11/04/19 04:13 11/04/19 04:13 Labs: Abnormal Lab Results - Last 24 Hours (Table) 11/04/19 11/04/19 11/04/19 Range/Units 04:13 04:13 04:13 WBC 11.5 H (3.8-10.6) k/uL RBC 3.32 L (3.80-5.40) m/uL Hgb 7.4 L (11.4-16.0) gm/dL Hct 25.2 L (34.0-46.0) % MCV 75.7 L (80.0-100.0) fL MCH 22.2 L (25.0-35.0) pg MCHC 29.4 L (31.0-37.0) g/dL RDW 18.3 H (11.5-15.5) % Plt Count 499 H (150-450) k/uL Neutrophils # 8.7 H (1.3-7.7) k/uL BUN 25 H (7-17) mg/dL Glucose 138 H (74-99) mg/dL POC Glucose (mg/dL) (75-99) mg/dL Total Bilirubin 0.1 L (0.2-1.3) mg/dL Troponin I 0.053 H* (0.000-0.034) ng/mL Albumin 3.4 L (3.5-5.0) g/dL Amylase <30 L (30-110) U/L 11/04/19 Range/Units 07:24 WBC (3.8-10.6) k/uL RBC (3.80-5.40) m/uL Hgb (11.4-16.0) gm/dL Hct (34.0-46.0) % MCV (80.0-100.0) fL MCH (25.0-35.0) pg MCHC (31.0-37.0) g/dL RDW (11.5-15.5) % Plt Count (150-450) k/uL Neutrophils # (1.3-7.7) k/uL BUN (7-17) mg/dL Glucose (74-99) mg/dL POC Glucose (mg/dL) 176 H (75-99) mg/dL Total Bilirubin (0.2-1.3) mg/dL Troponin I (0.000-0.034) ng/mL Albumin (3.5-5.0) g/dL Amylase (30-110) U/L Thrombosis Risk Factor Assmnt - DVT/VTE Prophylaxis DVT/VTE Prophylaxis: Pharmacologic Prophylaxis ordered - Choose All That Apply Any of the Below Risk Factors Present?: No Each Risk Factor Represents 3 Points: Age 75 years or older Thrombosis Risk Factor Assessment Total Risk Factor Score: 3 Thrombosis Risk Factor Assessment Level: Moderate Risk Assessment and Plan Plan: 1. Chest pain with elevated troponin. Cardiology consult. Patient is scheduled for heart catheterization tomorrow with Dr. JENNIFER Barajas. Continue asp irin 81 mg daily, Plavix 75 mg daily, Imdur 60 mg daily Lipitor 40 mg daily, Lopressor 25 mg in the morning and 50 g at bedtime, Nitrostat as needed. Echocardiogram ordered. 2. History of coronary artery disease and AR in the past. Continue as in #1. 3. Hypertension. Continue Lopressor, Norvasc 5 mg at bedtime. 4. Hyperlipidemia. Continue atorvastatin. 5. Diabetes mellitus type 2. Hold metformin. Continue Levemir 28 units at bedtime, Actos 15 mg daily, NovoLog scale before meals and at bedtime. 6. Generalized osteoarthritis. Continue gabapentin, vitamin B12, Celebrex on hold. 7. GI prophylaxis. Pepcid. Patient will be admitted to the hospital for a minimum of 2 night stay. Discharge plan: most likely return home. Impression and plan of care have been directed as dictated by the signing physician. Katie James nurse practitioner acting as scribe for signing physici an.
[2019-11-04 12:11] LABS: Glucose,Whole Blood 160 mg/dL (75-99)
[2019-11-04] MEDS: INSULIN ASPART (NovoLOG) 100 UNIT/ML VIAL SQ SCH ×3 (13:13→23:32)
[2019-11-04] MEDS: CELECOXIB 200 MG PO SCH (15:52)
[2019-11-04] MEDS ORDERED: HEPARIN SODIUM,PORCINE 5,000 UNIT/ML 1 ML VIAL IV ONE (16:34)
[2019-11-04] MEDS ORDERED: HEPARIN SODIUM,PORCINE 5,000 UNIT/ML 1 ML VIAL IV PRN (16:34)
[2019-11-04] MEDS ORDERED: HEPARIN SOD,PORK IN 0.45% NACL 25,000 UNIT in 0.45% NACL 1 250ML.BAG IV SCH (16:45)
[2019-11-04 17:09] LABS: Glucose,Whole Blood 162 mg/dL (75-99)
[2019-11-04 17:35] LABS: Anisocytosis Slight; Basophils % (A) 0 %; Eosinophils # (A) 0.2 k/uL (0-0.7); Eosinophils % (A) 2 %; HCT 25.9 % (34.0-46.0); HGB 7.6 gm/dL (11.4-16.0); Hypochromasia Marked; Lymphocytes # (A) 1.3 k/uL (1.0-4.8); Lymphocytes % (A) 11 %; MCH 22.3 pg (25.0-35.0); MCHC 29.5 g/dL (31.0-37.0); MCV 75.7 fL (80.0-100.0); Mean Platelet Volume 7.8; Microcytosis Moderate; Monocytes # (A) 0.7 k/uL (0-1.0); Monocytes % (A) 6 %; Neutrophils # (A) 9.8 k/uL (1.3-7.7); Neutrophils % (A) 80 %; Platelet Count 551 k/uL (150-450); RBC 3.42 m/uL (3.80-5.40); RDW 18.2 % (11.5-15.5); WBC 12.2 k/uL (3.8-10.6)
[2019-11-04] MEDS: GABAPENTIN 300 MG CAP PO SCH ×2 (18:16→23:31)
[2019-11-04 19:36] LABS: INR 1.1 (<1.2); Partial Thromboplastin Time 91.7 sec (22.0-30.0); Prothrombin Time 11.5 sec (9.0-12.0)
[2019-11-04 20:35] LABS: Glucose,Whole Blood 209 mg/dL (75-99)
[2019-11-04] MEDS ORDERED: METOPROLOL TARTRATE 25 MG TAB PO SCH (21:00)
[2019-11-04] MEDS: INSULIN DETEMIR (LEVEMIR) 100 UNIT/ML SYR SQ SCH (23:30)
[2019-11-04] MEDS: amLODIPine 5 MG TAB PO SCH ×2 (23:31→23:34)
[2019-11-05] MEDS: GABAPENTIN 300 MG CAP PO SCH ×2 (05:16→20:28)
[2019-11-05] MEDS ORDERED: ATORVASTATIN 80 MG TAB PO ONE (06:00)
[2019-11-05] MEDS ORDERED: ASPIRIN 325 MG TAB PO ONE (06:00)
[2019-11-05] MEDS: CLOPIDOGREL 75 MG TAB PO SCH (06:13)
[2019-11-05] MEDS: CHOLECALCIFEROL 1,000 UNIT TAB PO SCH (06:13)
[2019-11-05] MEDS: ASCORBIC ACID 500 MG TAB PO SCH (06:13)
[2019-11-05] MEDS: ISOSORBIDE MONONITRATE ER 60 MG TAB.ER.24H PO SCH (06:13)
[2019-11-05 06:14] LABS: Glucose,Whole Blood 89 mg/dL (75-99)
[2019-11-05] MEDS: METOPROLOL TARTRATE 25 MG TAB PO SCH (06:14)
[2019-11-05 07:27] LABS: Anisocytosis Slight; Basophils % (A) 0 %; Eosinophils # (A) 0.3 k/uL (0-0.7); Eosinophils % (A) 3 %; HCT 24.9 % (34.0-46.0); HGB 7.1 gm/dL (11.4-16.0); Hypochromasia Marked; Lymphocytes # (A) 2.2 k/uL (1.0-4.8); Lymphocytes % (A) 19 %; MCH 21.4 pg (25.0-35.0); MCHC 28.5 g/dL (31.0-37.0); MCV 75.3 fL (80.0-100.0); Mean Platelet Volume 7.2; Microcytosis Moderate; Monocytes # (A) 0.9 k/uL (0-1.0); Monocytes % (A) 7 %; Neutrophils # (A) 8.2 k/uL (1.3-7.7); Neutrophils % (A) 70 %; Platelet Count 489 k/uL (150-450); RBC 3.31 m/uL (3.80-5.40); RDW 18.3 % (11.5-15.5); WBC 11.7 k/uL (3.8-10.6)
[2019-11-05 07:29] LABS: African American GFR (CKD) >90 (>60 ml/min/1.73 sqM); Anion Gap 9 mmol/L; Blood Urea Nitrogen 18 mg/dL (7-17); Calcium 8.9 mg/dL (8.4-10.2); Carbon Dioxide 25 mmol/L (22-30); Chloride 103 mmol/L (98-107); Cholesterol 135 mg/dL (<200); Glucose 69 mg/dL (74-99); HDL Cholesterol 57 mg/dL (40-60); LDL Cholesterol,Calculated 56 mg/dL (0-99); Non-African American GFR(CKD) 80 (>60 ml/min/1.73 sqM); Potassium 3.9 mmol/L (3.5-5.1); Sodium 137 mmol/L (137-145); Triglycerides 112 mg/dL (<150)
[2019-11-05] MEDS: INSULIN ASPART (NovoLOG) 100 UNIT/ML VIAL SQ SCH ×4 (09:00→22:16)
[2019-11-05] MEDS ORDERED: EZETIMIBE 10 MG TAB PO SCH (09:00)
[2019-11-05] MEDS ORDERED: LIDOCAINE 1% INJ 10MG/ML (20 ML MDV) ONE (10:06)
[2019-11-05] MEDS ORDERED: IV FLUID CONTINUATION 1,000 ML IV ONE (10:30)
[2019-11-05] MEDS ORDERED: VERAPAMIL 2.5 MG/ML 2 ML AMP ONE (10:48)
[2019-11-05] MEDS ORDERED: MIDAZOLAM 2 MG/2 ML VIAL IV ONE (10:57)
[2019-11-05] MEDS ORDERED: LIDOCAINE 1% INJ 10MG/ML (20 ML MDV) SQ ONE (11:00)
[2019-11-05] MEDS: VERAPAMIL SYRINGE (5 MG/10 ML) INTRAARTER ONE ×2 (11:02→11:22)
[2019-11-05] MEDS ORDERED: HEPARIN SODIUM 1,000 UN/ML (10ML VL) IV ONE (11:05)
[2019-11-05] MEDS ORDERED: HEPARIN SODIUM 1,000 UN/ML (10ML VL) ONE (11:06)
[2019-11-05] MEDS ORDERED: IOPAMIDOL-370 100ML BTL INJ ONE (11:18)
[2019-11-05 11:54] LABS: Glucose,Whole Blood 88 mg/dL (75-99)
--- NOTE | 2019-11-05 11:59 | ECHOF ---
Referral Reason:cad MEASUREMENTS -------- HEIGHT: 160.0 cm WEIGHT: 127.9 kg BP: 131/59 RVIDd: 3.9 cm (< 3.3) IVSd: 1.3 cm (0.6 - 1.1) LVIDd: 4.4 cm (3.9 - 5.3) LVPWd: 1.2 cm (0.6 - 1.1) IVSs: 1.5 cm LVIDs: 2.9 cm LVPWs: 1.7 cm LA Diam: 3.1 cm (2.7 - 3.8) Ao Diam: 3.2 cm (2.0 - 3.7) AV Cusp: 1.8 cm (1.5 - 2.6) MV EXCURSION: 21.757 mm (> 18.000) MV EF SLOPE: 72 mm/s (70 - 150) EPSS: 0.7 cm MV E Vince: 0.82 m/s MV DecT: 271 ms MV A Vince: 0.94 m/s MV E/A Ratio: 0.87 RAP: 15.00 mmHg RVSP: 36.51 mmHg FINDINGS -------- Sinus rhythm. This was a technically adequate study. The left ventricular size is normal. There is borderline concentric left ventricular hypertrophy. Overall left ventricular systolic function is normal with, an EF between 60 - 65 %. The right ventricle is mild to moderately enlarged. The left atrial size is normal. The right atrium is normal in size. Interatrial and interventricular septum intact. There is mild aortic valve sclerosis. Mild mitral annular calcification present. There is trace mitral regurgitation. Mild tricuspid regurgitation present. There is mild pulmonary hypertension. The right ventricular systolic pressure, as measured by Doppler, is 36.51mmHg. The pulmonic valve was not well visualized. The aortic root size is normal. Normal inferior vena cava with less than 50% inspiratory collapse consistent with estimated right atr ial pressure of 15 mmHg. There is no pericardial effusion. CONCLUSIONS -------- 1. Sinus rhythm. 2. This was a technically adequate study. 3. The left ventricular size is normal. 4. There is borderline concentric left ventricular hypertrophy. 5. Overall left ventricular systolic function is normal with, an EF between 60 - 65 %. 6. The right ventricle is mild to moderately enlarged. 7. The left atrial size is normal. 8. The right atrium is normal in size. 9. Interatrial and interventricular septum intact. 10. There is mild aortic valve sclerosis. 11. Mild mitral annular calcification present. 12. There is trace mitral regurgitation. 13. Mild tricuspid regurgitation present. 14. There is mild pulmonary hypertension. 15. The right ventricular systolic pressure, as measured by Doppler, is 36.51mmHg. 16. The pulmonic valve was not well visualized. 17. The aortic root size is normal. 18. Normal inferior vena cava with less than 50% inspiratory collapse consistent with estimated right atrial pressure of 15 mmHg. 19. There is no pericardial effusion. [employer] OPERATOR: Vicki Alvarenga RDCS
[2019-11-05] MEDS: SODIUM CHLORIDE 0.9% 1,000 ML IV SCH ×2 (12:12→22:16)
--- NOTE | 2019-11-05 12:37 | CC ---
CARDIAC CATHETERIZATION REPORT DATE OF SERVICE: 11/05/2019 PROCEDURE: Left heart catheterization and coronary angiography. PERFORMED BY: Dr. Evelyn Barajas. Moderate conscious sedation time was 24 minutes. Patient was administered Versed. Oxygen saturation, hemodynamics and EKG were monitored closely. CLINICAL INFORMATION: Mrs. Kaylee Gallegos is a 73-year-old lady with morbid obesity, hypertension, type 2 diabetes, hyperlipidemia, known CAD with prior inferior AK in 1991 followed by PTCA of the codominant/nondominant RCA that was performed in 1994. Last cardiac cath was in 2004 at that time had a recanalized RCA, moderate disease in mid LAD, the circumflex was free of significant disease and she was advised medical therapy, did well. She came into the hospital on Tuesday with chest pain, had troponin elevation. The clinical picture was that of non-ST elevation AK. She was advised cardiac cath after due discussion regarding risks, benefits, and options. PROCEDURE NOTE: Under local anesthesia and strict aseptic precautions, a 6-Ivorian introducer was placed in the right radial artery. Using a 3.5 left and a 4.0 right Janeth catheters I performed coronary angiography and a pigtail catheter was used to check LV pressures. LV gram was not performed. The sheath was taken out and TR band applied as per protocol with saturation of the fingers of the right hand of 92%. Patient tolerated procedure well without complication. She received 3,500 units of heparin intravenously. CARDIAC CATHETERIZATION FINDINGS: The left ventricular end-diastolic pressure was about 14 to 15 mmHg without any gradient across aortic valve. CORONARY ANGIOGRAPHY FINDINGS: RIGHT CORONARY ARTERY: This vessel is heavily calcified, totally occluded in the midportion and 99% stenosis with bridging collaterals in the proximal portion. This vessel was widely patent, but recanalized and this occlusion may be the culprit on this admission. She did not have that many collaterals to the RCA on the previous cardiac catheterization. Now, there is a rich amount of collaterals coming to the distal RCA. LEFT MAIN CORONARY ARTERY: This is a short patent vessel, free of significant disease. Moderate calcification. Distally, there is mild narrowing but no significant disease. It bifurcates into LAD and circumflex. Distal left main has about a 15% to 20% narrowing. LEFT ANTERIOR DESCENDING CORONARY ARTERY: Good caliber vessel extends along the anterior wall. There is some bridging in the mid LAD. This vessel is moderate to heavily calcified. In the mid segment, there are two lesions of about 50% and both of these compared to the previous study from 2004 do not show any significant change. Both of these lesions are moderate, not critical and there is also bridging in the same area. There is no significant change. After this, the vessel improves in caliber, runs all the way to the apex, supplying a sizable amount of myocardium. The LAD gives off good size diagonal branch and a septal branch proximally which have minor irregularities. LAD therefore has a 50 to 55 two tandem lesions with some bridging but no other significant disease and these lesions are unchanged compared to the previous study from 2004. LEFT POSTERIOR CIRCUMFLEX CORONARY ARTERY: This is almost a codominant vessel has minor irregularities, no significant disease in the proximal portion, gives off a single obtuse marginal and in the distal it gives off posterolateral branches and multiple branches of the circumflex distally are free of significant disease. There are only minor irregularities noted. Circumflex is a good caliber and good distribution, relatively disease free vessel. LEFT VENTRICULOGRAM: Left ventriculogram was not performed. FINAL IMPRESSION: This patient has total occlusion of the RCA which has rich collaterals coming from the left system. The LAD has a 50% to 55% mid lesion with bridging unchanged from 2005. Circumflex has minor diffuse irregularities but no significant disease. It provides rich collaterals to the distal RCA and hopefully this should prevent any further anginal symptoms to the patient. This patient has total occlusion of RCA which was a previous vessel that was recanalized and had a prior myocardial infarction in the inferior wall. There are rich collaterals from the left system. The LAD has a 50% to 55% mid lesion with bridging. The circumflex is free of significant disease. No significant gradient across aortic valve and the left ventricular end-diastolic pressure is 15 mmHg. RECOMMENDATIONS: Findings were reviewed very carefully with the patient, daughter and . I am recommending continued medical therapy and a stress Cardiolite scan in 4 weeks to assess the LAD vessel significance physiologically. If she has no further symptoms, she may be discharged either tomorrow or day after. I explained my thoughts and recommendations in detail with the patient and family. MEERA / DAVIDN: [id number] /
[2019-11-05 12:50] LABS: Hemoglobin A1C 6.6 % (4.0-6.0)
--- NOTE | 2019-11-05 13:49 | P.PN ---
Subjective Progress Note Date: 11/05/19 This is a 73-year-old female patient of Dr. Jacques with past medical history of hypertension, hyperlipidemia, diabetes mellitus type II insulin requiring, generalized osteoarthritis, CAD with prior CA in 1991 and anemia with unknowncause. Patient states that she normally sleeps in her lift chair. She developed midsternal chest pain initially anterior and then later radiated to her back in the back of her upper left arm. She took 3 nitroglycerin without any improvement. She then took 4 baby aspirin. Her contacted 911 and EMS brought her into the hospital. She states that her chest pain went away while she was in the ambulance. She denies any history of choking on food. Patient denies any lightheadedness or dizziness, no palpitations. No cough or sputum production. Patient ambulates very little. She uses a power chair, she sleeps in a lift chair. Patient thinks that she had a stress test maybe [address] JENNIFER Barajas. Patient came into [facility] emergency center for evaluation. WBC 11.5, hemoglobin 7.4, BUN 25, creatinine 0.8, and troponin 0.053 and repeat at 0.237. baseline hemoglobin is around 8.5. Amylase and lipase were normal. Liver function tests normal. Chest x-ray was normal. EKG was a sinus tachycardia without acute ST changes. Patient was admitted to the cardiac stepdown unit and cardiology consult requested and patient scheduled for heart catheterization. 11/04: Patient underwent heart catheterization this morning with Dr. JENNIFER Barajas that revealed total occlusion of the RCA with rich collaterals coming from the left s ystem. LAD is 50-55% mid lesion with bridging unchanged from 2005. Circumflex is minor diffuse irregularities but no significant disease. Recommendations are to continue medical management and stress Cardiolite in 4 weeks to assess the LAD vessel significance physiologically. Echocardiogram reveals EF of 60-65%, trace mitral regurgitation, mild tricuspid regurgitation, mild pulmonary hypertension. Patient denies having any chest pain or shortness of breath. Plan is to monitor patient overnight and plan for discharge home tomorrow. All questions have been answered for the patient, and daughter. Repeat blood work reveals WBC 11.7, hemoglobin 7.1, platelet count 489, BUN 18 and creatinine 0.74. Blood sugars running between 69 and 89. Triglycerides 112, cholesterol 135, HDL 57, LDL 56. Objective - Vital Signs Vital signs: Vital Signs Temp 98.9 F 11/05/19 04:00 Pulse 83 11/05/19 04:00 Resp 18 11/05/19 04:00 BP 131/59 11/05/19 04:00 Pulse Ox 93 L 11/05/19 04:00 Intake & Output 11/04/19 11/05/19 11/05/19 18:59 06:59 18:59 Intake Total 460 Balance 460 Weight 128.2 kg Intake: Oral 460 Other: Voiding Method Toilet Toilet # Voids 1 1 1 # Bowel Movements 1 0 - Exam Review of Systems Constitutional: Denies chills, Denies fatigue, Denies fever, Denies poor appet ite, Denies weakness, Denies weight loss Eyes: denies blurred vision, denies pain Ears: bilateral: decreased hearing Cardiovascular: Denies chest pain, Reports dyspnea on exertion, Denies edema, Denies leg edema, Denies lightheadedness, Denies shortness of breath, Denies syncope Respiratory: Denies cough, Denies cough with sputum, Denies dyspnea, Denies excessive sputum, Denies hemoptysis, Denies home oxygen, Denies respiratory infections, Denies wheezing Gastrointestinal: Denies abdominal pain, Denies constipation, Denies diarrhea, Denies nausea, Denies vomiting Genitourinary: Denies dysuria, Denies hematuria, Denies urgency, Denies urinary frequency Musculoskeletal: Reports muscle weakness, Denies myalgias Integumentary: Denies pruritus, Denies rash Neurological: Denies change in mentation, Denies change in speech, Denies numbness, Denies weakness Psychiatric: Denies anxiety, Denies depression Endocrine: Denies fatigue, Denies weight change Gen: This is a 73-year-old morbidly obese female. She is resting in bed and appears to be comfortable and in no acute distress. HEENT: Head is atraumatic, normocephalic. Pupils equal, round. Sclerae is anicteric. NECK: Supple. No JVD. No lymphadenopathy. No thyromegaly. LUNGS: Clear to auscultation. No wheezes or rhonchi. No intercostal retractions. HEART: Regular rate and rhythm. Systolic murmur. ABDOMEN: Soft. Bowel sounds are present. No masses. No tenderness. No right upper quadrant tenderness. EXTREMITIES: Trace bilateral pedal edema. Dorsalis pedis +2 bilaterally. NEUROLOGICAL: Patient is awake, alert and oriented x3. Cranial nerves 2 through 12 are grossly intact. - Labs CBC & Chem 7: 11/05/19 06:26 11/05/19 06:26 Labs: Abnormal Lab Results - Last 24 Hours (Table) 11/04/19 11/04/19 11/04/19 Range/Units 10:24 12:03 15:47 WBC (3.8-10.6) k/uL RBC (3.80-5.40) m/uL Hgb (11.4-16.0) gm/dL Hct (34.0-46.0) % MCV (80.0-100.0) fL MCH (25.0-35.0) pg MCHC (31.0-37.0) g/dL RDW (11.5-15.5) % Plt Count (150-450) k/uL Neutrophils # (1.3-7.7) k/uL APTT (22.0-30.0) sec BUN (7-17) mg/dL Glucose (74-99) mg/dL POC Glucose (mg/dL) 160 H (75-99) mg/dL Troponin I 0.237 H* 0.418 H* (0.000-0.034) ng/mL 11/04/19 11/04/19 11/04/19 Range/Units 17:08 17:10 18:15 WBC 12.2 H (3.8-10.6) k/uL RBC 3.42 L (3.80-5.40) m/uL Hgb 7.6 L (11.4-16.0) gm/dL Hct 25.9 L (34.0-46.0) % MCV 75.7 L (80.0-100.0) fL MCH 22.3 L (25.0-35.0) pg MCHC 29.5 L (31.0-37.0) g/dL RDW 18.2 H (11.5-15.5) % Plt Count 551 H (150-450) k/uL Neutrophils # 9.8 H (1.3-7.7) k/uL APTT 91.7 H (22.0-30.0) sec BUN (7-17) mg/dL Glucose (74-99) mg/dL POC Glucose (mg/dL) 162 H (75-99) mg/dL Troponin I (0.000-0.034) ng/mL 11/04/19 11/04/19 11/05/19 Range/Units 20:28 22:52 06:26 WBC (3.8-10.6) k/uL RBC (3.80-5.40) m/uL Hgb (11.4-16.0) gm/dL Hct (34.0-46.0) % MCV (80.0-100.0) fL MCH (25.0-35.0) pg MCHC (31.0-37.0) g/dL RDW (11.5-15.5) % Plt Count (150-450) k/uL Neutrophils # (1.3-7.7) k/uL APTT 45.9 H (22.0-30.0) sec BUN 18 H (7-17) mg/dL Glucose 69 L (74-99) mg/dL POC Glucose (mg/dL) 209 H (75-99) mg/dL Troponin I (0.000-0.034) ng/mL 11/05/19 Range/Units 06:26 WBC 11.7 H (3.8-10.6) k/uL RBC 3.31 L (3.80-5.40) m/uL Hgb 7.1 L (11.4-16.0) gm/dL Hct 24.9 L (34.0-46.0) % MCV 75.3 L (80.0-100.0) fL MCH 21.4 L (25.0-35.0) pg MCHC 28.5 L (31.0-37.0) g/dL RDW 18.3 H (11.5-15.5) % Plt Count 489 H (150-450) k/uL Neutrophils # 8.2 H (1.3-7.7) k/uL APTT (22.0-30.0) sec BUN (7-17) mg/dL Glucose (74-99) mg/dL POC Glucose (mg/dL) (75-99) mg/dL Troponin I (0.000-0.034) ng/mL Assessment and Plan Plan: 1. Chest pain with elevated troponin. Cardiology consult. Status post heart catheterization with Dr. JENNIFER Barajas. No change from previous with recommendations for medical management. Continue aspirin 81 mg daily, Plavix 75 mg daily, Imdur 60 mg daily Lipitor 40 mg daily, Lopressor 25 mg in the morning and 50 g at bedtime, Nitrostat as needed. Echocardiogram as above. 2. History of coronary artery disease and CA in the past. Continue as in #1. 3. Hypertension. Continue Lopressor, Norvasc 5 mg at bedtime. 4. Hyperlipidemia. Continue atorvastatin. 5. Diabetes mellitus type 2. Hold metformin. Continue Levemir 28 units at bedtime, Actos 15 mg daily, NovoLog scale before meals and at bedtime. 6. Generalized osteoarthritis. Continue gabapentin, vitamin B12, Celebrex on hold. 7. GI prophylaxis. Pepcid. Discharge plan: Home on Tuesday. Impression and plan of care have been directed as dictated by the signing physic ian. Katie James nurse practitioner acting as scribe for signing physician.
[2019-11-05] MEDS: CELECOXIB 200 MG PO SCH (14:02)
[2019-11-05] MEDS: predniSONE 5 MG TAB PO SCH (14:08)
[2019-11-05] MEDS: FUROSEMIDE 20 MG TAB PO SCH (14:08)
[2019-11-05] MEDS: PIOGLITAZONE 15 MG TAB PO SCH (14:08)
[2019-11-05] MEDS: HEPARIN SODIUM,PORCINE 5,000 UNIT/ML 1 ML VIAL SQ SCH ×2 (16:16→22:19)
[2019-11-05 17:12] LABS: Glucose,Whole Blood 216 mg/dL (75-99)
[2019-11-05] MEDS: amLODIPine 5 MG TAB PO SCH (20:28)
[2019-11-05] MEDS: INSULIN DETEMIR (LEVEMIR) 100 UNIT/ML SYR SQ SCH (20:30)
[2019-11-05] MEDS ORDERED: METOPROLOL TARTRATE 25 MG TAB PO SCH (21:00)
[2019-11-05 21:13] LABS: Glucose,Whole Blood 238 mg/dL (75-99)
[2019-11-06 05:18] VITALS: RESP 18
[2019-11-06] MEDS: INSULIN ASPART (NovoLOG) 100 UNIT/ML VIAL SQ SCH ×2 (06:38→12:10)
[2019-11-06 06:42] LABS: Glucose,Whole Blood 113 mg/dL (75-99)
[2019-11-06 07:13] LABS: Anisocytosis Slight; Basophils % (A) 0 %; Eosinophils # (A) 0.4 k/uL (0-0.7); Eosinophils % (A) 4 %; HCT 23.6 % (34.0-46.0); Hypochromasia Marked; Lymphocytes # (A) 1.8 k/uL (1.0-4.8); Lymphocytes % (A) 18 %; MCH 22.5 pg (25.0-35.0); MCHC 29.6 g/dL (31.0-37.0); MCV 75.9 fL (80.0-100.0); Mean Platelet Volume 7.5; Microcytosis Moderate; Monocytes # (A) 0.7 k/uL (0-1.0); Monocytes % (A) 7 %; Neutrophils # (A) 6.9 k/uL (1.3-7.7); Neutrophils % (A) 69 %; Platelet Count 430 k/uL (150-450); RBC 3.11 m/uL (3.80-5.40); RDW 18.2 % (11.5-15.5)
--- NOTE | 2019-11-06 08:41 | CDI ---
Documentation Clarification Form Date: 11/06/2019 08:14:08 AM From: Анна Gonzalez RN, CCDS Admit Date: 11/04/2019 05:55:00 AM Patient Name: Kaylee Gallegos Visit Number: [id number] Discharge Date: ATTENTION: The Clinical Documentation Specialists (CDI) and [facility] Coding Staff appreciate your assistance in clarifying documentation. Please respond to the clarification below the line at the bottom and electronically sign. The CDI & [facility] Coding staff will review the response and follow-up if needed. Please note: Queries are made part of the Legal Health Record. If you have any questions, please contact the author of this message via ITS. Dr. Val Spears Chest pain with elevated troponin is documented in the H&P assessment and plan and is unspecified,further clarification is needed. 11/03 to ED, patient C/O midsternal chest pain initially anterior and then later radiated to her back, in the back of her upper left arm. History/Risk factors: Coronary artery disease, Diabetes Mellitus, Hypertension, Myocardial Infarction (1991), Morbid obesity BMI 50.4 Clinical Indicators: 73-mies[age]-old male with midsternal chest pain initially anterior and then later radiated to her back, in the back of her upper left arm. 11/03 Vital signs: 129/58 106 16 98.5 11/03 Troponin I 0.053, 0.237, 0.418 Treatment: Telemetry monitoring Cardiac Catheterization: Plan continue medical treatment Monitor CBC, Troponins Consults: 11/03 Cardiology (Dr. Monsivais) "chest pain, similar to symptoms with previous IA, initial troponin mildly abnormal". In your professional opinion, can please clarify if the chest pain signifies, or is due to: CAD with angina (specify vessel and type of angina if known) Chest wall pain Unstable angina Other condition, please specify Unable to determine (Last Revision: October 2018) CAD with unstable angina MTDD
[2019-11-06] MEDS ORDERED: METOPROLOL TARTRATE 50 MG TAB PO SCH (09:00)
[2019-11-06] MEDS: ATORVASTATIN 40 MG TAB PO SCH (09:14)
[2019-11-06] MEDS: predniSONE 5 MG TAB PO SCH (09:14)
[2019-11-06] MEDS: CLOPIDOGREL 75 MG TAB PO SCH (09:15)
[2019-11-06] MEDS: ASPIRIN 81 MG PO SCH (09:15)
[2019-11-06] MEDS: CHOLECALCIFEROL 1,000 UNIT TAB PO SCH (09:15)
[2019-11-06] MEDS: ASCORBIC ACID 500 MG TAB PO SCH (09:15)
[2019-11-06] MEDS: HEPARIN SODIUM,PORCINE 5,000 UNIT/ML 1 ML VIAL SQ SCH (09:15)
[2019-11-06] MEDS: PIOGLITAZONE 15 MG TAB PO SCH (09:15)
[2019-11-06] MEDS: ISOSORBIDE MONONITRATE ER 60 MG TAB.ER.24H PO SCH (09:15)
[2019-11-06] MEDS: FUROSEMIDE 20 MG TAB PO SCH (09:15)
[2019-11-06] MEDS: CELECOXIB 200 MG PO SCH (09:16)
[2019-11-06 11:57] LABS: Glucose,Whole Blood 196 mg/dL (75-99)
[2019-11-06 12:15] VITALS: BP 137/78; PULSE 88; TEMP 98.1
--- NOTE | 2019-11-06 12:25 | P.PN ---
Subjective Progress Note Date: 11/06/19 This is a pleasant 73-year-old female patient who is followed with Dr. Bebo Barajas in the office in the past. Has a past medical history of hypertension, hyperlipidemia, diabetes, significant arthritis, CAD with prior ID in 1991 and anemia with no known source of bleeding according to the patient. Presented to the emergency department with complaints of midsternal chest discomfort she described as a burning type pain that occurred at rest. She did take sublingual nitro at home without relief as well as 4 baby aspirin. According to the patient the pain subsided shortly after arrival here. She was prompted to call EMS because his symptoms were very similar to what she experienced with her ID i n 1991. At that time she did undergo cardiac catheterization and intervention for a blockage which according to the patient reoccluded and a subsequent cardiac catheterization showed collaterals. She has not followed up with Dr. JENNIFER Barajas recently. Her mobility is quite limited due to arthritis and she uses a motorized scooter and walker. EKG on admission showed sinus tachycardia with some artifact but no clear-cut evidence of acute ischemia. Chest x-ray showed normal chest, no change. Labs on admission showed a white blood cell count 11,500, hemoglobin 7.4, BUN 25, creatinine 0.8, and troponin 0.053. Hemoglobin on 09/20/2019 was also 7.4. Upon examination, patient is resting comfortably in bed. She's got no further complaints of chest discomfort. She does have complaints of dyspnea on exertion but this is stable and unchanged from her baseline. Complains of chronic edema in the right lower extremity. Denies complaints of palpitations, dizziness, lightheadedness, syncope or near syncope. She's had no nausea and vomiting. 11/06/2019 Patient underwent a cardiac catheterization yesterday by Dr. Roxanne Barajas which revealed a total occlusion of the RCA, LAD 50-55%, he recommended continuing medical therapy and doing a stress Cardiolite scan in 4 weeks to assess the LAD. If patient has no further symptoms that she could be discharged home today. Patient was seen and examined this morning, doing well, no chest pain, breathing overall stable. Objective - Vital Signs Vital signs: Vital Signs Temp 98.1 F 11/06/19 12:13 Pulse 88 11/06/19 12:13 Resp 18 11/06/19 12:13 BP 137/78 11/06/19 12:13 Pulse Ox 92 L 11/06/19 12:13 Intake & Output 11/05/19 11/06/19 11/06/19 18:59 06:59 18:59 Intake Total 715 1065 240 Balance 715 1065 240 Weight 129.1 kg Intake: IV 100 Intake, IV Titration 375 825 Amount Sodium Chloride 0.9% 1, 375 825 000 ml @ 75 mls/hr IV . [id number] [facility], 1928–1983 Rx#:[id number] Oral 240 240 240 Other: Voiding Method Toilet # Voids 1 1 # Bowel Movements 0 1 1 - Exam PHYSICAL EXAMINATION: HEENT: Head is atraumatic, normocephalic. Pupils equal, round. Neck is supple. There is no elevated jugular venous pressure. HEART EXAMINATION: Heart sounds regular, S1 and S2 with a systolic murmur. CHEST EXAMINATION: Lungs reveal expiratory wheezing throughout. No chest wall tenderness is noted on palpation or with deep breathing. ABDOMEN: Soft, obese, nontender. Bowel sounds are heard. No organomegaly noted. EXTREMITIES: 1+ peripheral pulses with evidence of mild peripheral edema and no calf tenderness noted. Right radial site clean and dry, good distal pulse. NEUROLOGIC patient is awake, alert and oriented x3. - Labs CBC & Chem 7: 11/06/19 06:34 11/05/19 06:26 Labs: Abnormal Lab Results - Last 24 Hours (Table) 11/04/19 11/05/19 11/05/19 Range/Units 17:10 17:02 21:12 RBC (3.80-5.40) m/uL Hgb (11.4-16.0) gm/dL Hct (34.0-46.0) % MCV (80.0-100.0) fL MCH (25.0-35.0) pg MCHC (31.0-37.0) g/dL RDW (11.5-15.5) % POC Glucose (mg/dL) 216 H 238 H (75-99) mg/dL Hemoglobin A1c 6.6 H (4.0-6.0) % 11/06/19 11/06/19 11/06/19 Range/Units 06:34 06:37 11:56 RBC 3.11 L (3.80-5.40) m/uL Hgb 7.0 L (11.4-16.0) gm/dL Hct 23.6 L (34.0-46.0) % MCV 75.9 L (80.0-100.0) fL MCH 22.5 L (25.0-35.0) pg MCHC 29.6 L (31.0-37.0) g/dL RDW 18.2 H (11.5-15.5) % POC Glucose (mg/dL) 113 H 196 H (75-99) mg/dL Hemoglobin A1c (4.0-6.0) % Assessment and Plan Plan: Assessment: #1 chest pain, similar to symptoms with previous ID, troponin abnormality suggestive of possible acute coronary syndrome. Status post cardiac catheterization, medical therapy advised. #2 prior history of CAD and ID in the past #3 hypertension #4 diabetes mellitus type 2 #5 hyperlipidemia #6 morbid obesity #7 arthritis Plan From cardiology's perspective, the patient may be able to be discharged home today. She will follow-up with Dr. Roxanne Barajas in the office. He recommends undergoing a Cardiolite stress test in 4 weeks to evaluate the LAD distribution. DNP note has been reviewed, I agree with a documented findings and plan of care. Patient was seen and examined.
--- NOTE | 2019-11-06 15:33 | P.DS ---
Providers Date of admission: 11/04/19 05:55 Expected date of discharge: 11/06/19 Attending physician: Val Spears Consults: 11/04/19 05:55 Consult Physician Routine Consulting Provider: Jorge Luis Borja Consult Reason/Comments: chest pain Do you want consulting provider notified?: Yes [facility]: This is a 73-year-old female patient of Dr. Jacques with past medical history of hypertension, hyperlipidemia, diabetes mellitus type II insulin requiring, generalized osteoarthritis, CAD with prior VA in 1991 and anemia with unknownca use. Patient states that she normally sleeps in her lift chair. She developed midsternal chest pain initially anterior and then later radiated to her back in the back of her upper left arm. She took 3 nitroglycerin without any improvement. She then took 4 baby aspirin. Her contacted 911 and EMS brought her into the hospital. She states that her chest pain went away while she was in the ambulance. She denies any history of choking on food. Patient denies any lightheadedness or dizziness, no palpitations. No cough or sputum production. Patient ambulates very little. She uses a power chair, she sleeps in a lift chair. Patient thinks that she had a stress test maybe [address] JENNIFER Barajas. Patient came into [facility] emergency center for evaluation. WBC 11.5, hemoglobin 7.4, BUN 25, creatinine 0.8, and troponin 0.053 and repeat at 0.237. baseline hemoglobin is around 8.5. Amylase and lipase were normal. Liver function tests normal. Chest x-ray was normal. EKG was a sinus tachycardia without acute ST changes. Patient was admitted to the cardiac stepdown unit and cardiology consult requested and patient scheduled for heart catheterization. 11/04: Patient underwent heart catheterization this morning with Dr. JENNIFER Barajas that revealed total occlusion of the RCA with rich collaterals coming from the left system. LAD is 50-55% mid lesion with bridging unchanged from 2005. Circumflex is minor diffuse irregularities but no significant disease. Recommendations are to continue medical management and stress Cardiolite in 4 weeks to assess the LAD vessel significance physiologically. Echocardiogram reveals EF of 60-65%, trace mitral regurgitation, mild tricuspid regurgitation, mild pulmonary hypertension. Patient denies having any chest pain or shortness of breath. Plan is to monitor patient overnight and plan for discharge home tomorrow. All questions have been answered for the patient, and daughter. Repeat blood work reveals WBC 11.7, hemoglobin 7.1, platelet count 489, BUN 18 and creatinine 0.74. Blood sugars running between 69 and 89. Triglycerides 112, cholesterol 135, HDL 57, LDL 56. 11/05: Patient has been afebrile, heart rate 88, blood pressure 134/63, pulse ox 95% on room air. Repeat blood work reveals WBC 10.0, hemoglobin 7, platelet count [birth year]1929. Blood sugars running between 113 and 238. Patient denies having any chest pain. She states she has had none since she arrived to the hospital. Patient is been cleared by cardiology for discharge. Patient will be discharged home today in stable condition Discharge diagnoses: 1. Chest pain secondary to unstable angina. 2. History of coronary artery disease and VA in the past. 3. Hypertension hypertensive cardiovascular disease. 4. Hyperlipidemia. 5. Diabetes mellitus type 2. 6. Generalized osteoarthritis. Discharge plan: Home Impression and plan of care have been directed as dictated by the signing physician. Katie James nurse practitioner acting as scribe for signing physician. Patient Condition at Discharge: Good Plan - Discharge Summary Discharge Rx Participant: No New Discharge Prescriptions: New Nitroglycerin Sl Tabs [Nitrostat] 0.4 mg SUBLINGUAL Q5M PRN #25 tab PRN Reason: Chest Pain Continue Gabapentin 300 mg PO BID@1800,2100 Ezetimibe [Zetia] 10 mg PO Q48H amLODIPine [Norvasc] 5 mg PO HS Pioglitazone HCl [Actos] 15 mg PO DAILY Isosorbide Mononitrate ER [Imdur] 60 mg PO DAILY Atorvastatin Calcium [Lipitor] 20 mg PO Q48H Aspirin 81 mg PO HS Ascorbic Acid [Vitamin C] 500 mg PO DAILY Clopidogrel Bisulfate [Plavix] 75 mg PO DAILY Cranberry Fruit Concentrate [Azo Cranberry] 250 mg PO BID Insulin Glargine [Lantus] 20 unit SQ HS Cholecalciferol [Vitamin D3 (25 Mcg = 1000 Iu)] 1,000 unit PO DAILY Calcium Carb-Vit D 500Mg-200Un [Oscal 500+D] 1 tab PO DAILY INSULIN LISPRO (humaLOG) [humaLOG] See Protocol SQ AC-TID INSULIN LISPRO (humaLOG) [humaLOG] 8 units SQ AC-TID Cyanocobalamin [Vitamin B-12] 500 mcg PO DAILY #30 tablet Multivitamins, Thera [Multivitamin (formulary)] 1 tab PO DAILY predniSONE 5 mg PO DAILY Celecoxib [CeleBREX] 200 mg PO BID traMADol HCL 50 mg PO TID PRN PRN Reason: Pain Ibuprofen [Motrin] 800 mg PO Q8H PRN PRN Reason: Pain Furosemide [Lasix] 20 mg PO DAILY Cranberry Concentrate 300mg 2 tab PO DAILY Ergocalciferol [Vitamin D2 (DRISDOL)] 50,000 unit PO TU metFORMIN HCL [Glucophage] 1,000 mg PO BID Ferrous Sulfate [Iron (65 MG Elemental)] 325 mg PO DAILY Changed Metoprolol Tartrate [Lopressor] 25 mg PO HS #0 Metoprolol Tartrate [Lopressor] 50 mg PO QAM #0 Discontinued Gabapentin 600 mg PO DAILY Discharge Medication List Ascorbic Acid [Vitamin C] 500 mg PO DAILY 08/21/15 [History] Aspirin 81 mg PO HS 08/21/15 [History] Atorvastatin Calcium [Lipitor] 20 mg PO Q48H 08/21/15 [History] Clopidogrel Bisulfate [Plavix] 75 mg PO DAILY 08/21/15 [History] Cranberry Fruit Concentrate [Azo Cranberry] 250 mg PO BID 08/21/15 [History] Ezetimibe [Zetia] 10 mg PO Q48H 08/21/15 [History] Gabapentin 300 mg PO BID@1800,2100 08/21/15 [History] Isosorbide Mononitrate ER [Imdur] 60 mg PO DAILY 08/21/15 [History] Pioglitazone HCl [Actos] 15 mg PO DAILY 08/21/15 [History] amLODIPine [Norvasc] 5 mg PO HS 08/21/15 [History] Calcium Carb-Vit D 500Mg-200Un [Oscal 500+D] 1 tab PO DAILY 06/01/16 [History] Cholecalciferol [Vitamin D3 (25 Mcg = 1000 Iu)] 1,000 unit PO DAILY 06/01/16 [History] INSULIN LISPRO (humaLOG) [humaLOG] 8 units SQ AC-TID 06/01/16 [History] INSULIN LISPRO (humaLOG) [humaLOG] See Protocol SQ AC-TID 06/01/16 [History] Insulin Glargine [Lantus] 20 unit SQ HS 06/01/16 [History] Cyanocobalamin [Vitamin B-12] 500 mcg PO DAILY #30 tablet 06/02/16 [Rx] Multivitamins, Thera [Multivitamin (formulary)] 1 tab PO DAILY 11/17/16 [History] Celecoxib [CeleBREX] 200 mg PO BID 11/04/19 [History] Cranberry Concentrate 300mg 2 tab PO DAILY 11/04/19 [History] Ergocalciferol [Vitamin D2 (DRISDOL)] 50,000 unit PO TU 11/04/19 [History] Ferrous Sulfate [Iron (65 MG Elemental)] 325 mg PO DAILY 11/04/19 [History] Furosemide [Lasix] 20 mg PO DAILY 11/04/19 [History] Ibuprofen [Motrin] 800 mg PO Q8H PRN 11/04/19 [History] metFORMIN HCL [Glucophage] 1,000 mg PO BID 11/04/19 [History] predniSONE 5 mg PO DAILY 11/04/19 [History] traMADol HCL 50 mg PO TID PRN 11/04/19 [History] Metoprolol Tartrate [Lopressor] 25 mg PO HS #0 11/06/19 [Rx] Metoprolol Tartrate [Lopressor] 50 mg PO QAM #0 11/06/19 [Rx] Nitroglycerin Sl Tabs [Nitrostat] 0.4 mg SUBLINGUAL Q5M PRN #25 tab 11/06/19 [Rx] Follow up Appointment(s)/Referral(s): Geoffrey Barajas MD [STAFF PHYSICIAN] - 11/13/19 2:00 pm (Tuesday) Dariusz Jacques DO [Primary Care Provider] - 1 Week (Spoke to center receptionist. Office will call with appointment time) Patient Instructions/Handouts: *Surgery [facility] - After Heart Catheterization - Drilling Rig Operator Instructions, Chest Pain (ED) Discharge Disposition: HOME SELF-CARE
== END 2019-11-06 13:55 | disposition home or self-care (01) ==
LOC: EC 01:26 → 3SCARD 05:55 → INTOOBSV 05:55 → UNDODISIN 11-06 13:55
PROVIDERS: ADMIT Family Medicine; ATTEND Family Medicine
DX: I25.110 Atherosclerotic heart disease of native coronary artery with unstable angina pectoris (principal); I25.84 Coronary atherosclerosis due to calcified coronary lesion; I25.82 Chronic total occlusion of coronary artery; I10 Essential (primary) hypertension; Z87.891 Personal history of nicotine dependence; E78.5 Hyperlipidemia, unspecified; E11.42 Type 2 diabetes mellitus with diabetic polyneuropathy; Z79.4 Long term (current) use of insulin; R60.0 Localized edema; E66.01 Morbid (severe) obesity due to excess calories; Z68.43 Body mass index [BMI] 50.0-59.9, adult; H91.90 Unspecified hearing loss, unspecified ear; M19.90 Unspecified osteoarthritis, unspecified site; Z99.3 Dependence on wheelchair; E78.00 Pure hypercholesterolemia, unspecified; I25.2 Old myocardial infarction; D64.9 Anemia, unspecified; Z90.710 Acquired absence of both cervix and uterus; Z98.890 Other specified postprocedural states; Z82.49 Family history of ischemic heart disease and other diseases of the circulatory system; Z82.3 Family history of stroke; Z83.3 Family history of diabetes mellitus; Z80.9 Family history of malignant neoplasm, unspecified; R32 Unspecified urinary incontinence; M79.89 Other specified soft tissue disorders; Z79.1 Long term (current) use of non-steroidal anti-inflammatories (NSAID); Z79.02 Long term (current) use of antithrombotics/antiplatelets; Z79.82 Long term (current) use of aspirin; Z79.52 Long term (current) use of systemic steroids; Z79.899 Other long term (current) drug therapy; Z88.3 Allergy status to other anti-infective agents; Z88.5 Allergy status to narcotic agent; Z88.0 Allergy status to penicillin
CPT/HCPCS: 93005 ×2; 96372; 99285; 36415; 93306; 93458; 80061; 80053; 80048; 82150; 83690; 83735; 84484; 85025 ×3; 85610; 85730; 83036; 71045; G0378 ×3; C1769 ×5; C1894 ×2; J2250; J1644 ×5; J2001; J1650; J7512 ×3; Q9967

== ENCOUNTER 2020-07-06 16:03 | Inpatient (IN) | payer MEDICARE ==
[2020-07-06] MEDS ORDERED: SODIUM CHLORIDE 0.9% 1,000 ML IV STA ×2 (16:13)
[2020-07-06 16:49] LABS: Anisocytosis Slight; Basophils % (A) 0 %; Eosinophils # (A) 0.2 k/uL (0-0.7); Eosinophils % (A) 2 %; HCT 28.1 % (34.0-46.0); HGB 8.8 gm/dL (11.4-16.0); Hypochromasia Moderate; Lymphocytes # (A) 0.7 k/uL (1.0-4.8); Lymphocytes % (A) 8 %; MCH 25.4 pg (25.0-35.0); MCHC 31.5 g/dL (31.0-37.0); MCV 80.7 fL (80.0-100.0); Mean Platelet Volume 7.5; Monocytes # (A) 0.3 k/uL (0-1.0); Monocytes % (A) 3 %; Neutrophils # (A) 7.9 k/uL (1.3-7.7); Neutrophils % (A) 87 %; Platelet Count 451 k/uL (150-450); RBC 3.48 m/uL (3.80-5.40); RDW 16.6 % (11.5-15.5); WBC 9.1 k/uL (3.8-10.6)
[2020-07-06 17:05] LABS: ALT 32 U/L (4-34); AST 62 U/L (14-36); African American GFR (CKD) >90 (>60 ml/min/1.73 sqM); Albumin 3.2 g/dL (3.5-5.0); Alkaline Phosphatase 73 U/L (38-126); Anion Gap 8 mmol/L; Blood Urea Nitrogen 16 mg/dL (7-17); C Reactive Protein 13.1 mg/L (<10.0); Calcium 8.4 mg/dL (8.4-10.2); Carbon Dioxide 19 mmol/L (22-30); Chloride 109 mmol/L (98-107); Creatine Kinase 34 U/L (30-135); Glucose 217 mg/dL (74-99); LDH 536 U/L (313-618); Magnesium 1.8 mg/dL (1.6-2.3); Non-African American GFR(CKD) 81 (>60 ml/min/1.73 sqM); Phosphorus 3.3 mg/dL (2.5-4.5); Potassium 4.1 mmol/L (3.5-5.1); Sodium 136 mmol/L (137-145); Total Bilirubin 0.4 mg/dL (0.2-1.3); Total Protein 6.7 g/dL (6.3-8.2)
--- NOTE | 2020-07-06 17:07 | ED ---
Weakness HPI - General Chief complaint: Weakness Stated complaint: weakness Time Seen by Provider: 07/06/20 16:06 Source: patient, EMS, RN notes reviewed, old records reviewed Mode of arrival: EMS Limitations: no limitations - History of Present Illness Initial comments: This is a 74 show female DF for evaluation patient presents for evaluation regards to weakness not feeling well. Patient states she had coronavirus 3 weeks ago. Patient has multiple medical history with multiple medical problems patient denying any recent fevers. She has have occasional cough MD Complaint: generalized weakness, lack of energy -: days(s) Location: generalized Severity: moderate Severity scale (1-10): 5 Consistency: constant Improves with: none Worsens with: none Context: recent illness Associated Symptoms: denies other symptoms - Related Data Home Medications Medication Instructions Recorded Confirmed Ascorbic Acid [Vitamin C] 500 mg PO DAILY 08/21/15 11/04/19 Aspirin 81 mg PO HS 08/21/15 11/04/19 Atorvastatin Calcium [Lipitor] 20 mg PO Q48H 08/21/15 11/04/19 Clopidogrel Bisulfate [Plavix] 75 mg PO DAILY 08/21/15 11/04/19 Cranberry Fruit Concentrate [Azo 250 mg PO BID 08/21/15 11/04/19 Cranberry] Ezetimibe [Zetia] 10 mg PO Q48H 08/21/15 11/04/19 Gabapentin 300 mg PO BID@1800,2100 08/21/15 11/04/19 Isosorbide Mononitrate ER [Imdur] 60 mg PO DAILY 08/21/15 11/04/19 Pioglitazone HCl [Actos] 15 mg PO DAILY 08/21/15 11/04/19 amLODIPine [Norvasc] 5 mg PO HS 08/21/15 11/04/19 Calcium Carb-Vit D 500Mg-200Un 1 tab PO DAILY 06/01/16 11/04/19 [Oscal 500+D] Cholecalciferol [Vitamin D3 (25 1,000 unit PO DAILY 06/01/16 11/04/19 Mcg = 1000 Iu)] INSULIN LISPRO (humaLOG) [humaLOG] 8 units SQ AC-TID 06/01/16 11/04/19 INSULIN LISPRO (humaLOG) [humaLOG] See Protocol SQ AC-TID 06/01/16 11/04/19 Insulin Glargine [Lantus] 20 unit SQ HS 06/01/16 11/04/19 Multivitamins, Thera [Multivitamin 1 tab PO DAILY 11/17/16 11/04/19 (formulary)] Celecoxib [CeleBREX] 200 mg PO BID 11/04/19 11/04/19 Cranberry Concentrate 300mg 2 tab PO DAILY 11/04/19 11/04/19 Ergocalciferol [Vitamin D2 50,000 unit PO TU 11/04/19 11/04/19 (DRISDOL)] Ferrous Sulfate [Iron (65 MG 325 mg PO DAILY 11/04/19 11/04/19 Elemental)] Furosemide [Lasix] 20 mg PO DAILY 11/04/19 11/04/19 Ibuprofen [Motrin] 800 mg PO Q8H PRN 11/04/19 11/04/19 metFORMIN HCL [Glucophage] 1,000 mg PO BID 11/04/19 11/04/19 predniSONE 5 mg PO DAILY 11/04/19 11/04/19 traMADol HCL 50 mg PO TID PRN 11/04/19 11/04/19 Previous Rx's Medication Instructions Recorded Cyanocobalamin [Vitamin B-12] 500 mcg PO DAILY #30 tablet 06/02/16 Metoprolol Tartrate [Lopressor] 25 mg PO HS #0 11/06/19 Metoprolol Tartrate [Lopressor] 50 mg PO QAM #0 11/06/19 Nitroglycerin Sl Tabs [Nitrostat] 0.4 mg SUBLINGUAL Q5M PRN #25 tab 11/06/19 Allergies Allergy/AdvReac Type Severity Reaction Status Date / Time acetaminophen [From [place]] Allergy Severe Diarrhea Verified 07/06/20 18:55 hydrocodone [From [place]] Allergy Severe Diarrhea Verified 07/06/20 18:55 meloxicam [From Mobic] Allergy Diarrhea Verified 07/06/20 18:55 Penicillins Allergy Rash/Hives Verified 07/06/20 18:55 tobramycin Allergy Rash/Hives Verified 07/06/20 18:55 Review of Systems ROS Statement: Those systems with pertinent positive or pertinent negative responses have been documented in the HPI. ROS Other: All systems not noted in ROS Statement are negative. Past Medical History Past Medical History: Chest Pain / Angina, Diabetes Mellitus, Hearing Disorder / Deafness, Hyperlipidemia, Hypertension, Myocardial Infarction ([place]), Osteoarthritis (OA) Additional Past Medical History / Comment(s): power chair- ambulates only a few feet, swelling of lower leg comes and goes, urinary leakage , neuropathy Last Myocardial Infarction Date:: 1991 History of Any Multi-Drug Resistant Organisms: None Reported Past Surgical History: Appendectomy, Heart Catheterization, Hysterectomy, Orthopedic Surgery, Tonsillectomy Additional Past Surgical History / Comment(s): ki hip replacements, hemorrhoide ctomy Past Anesthesia/Blood Transfusion Reactions: Postoperative Nausea & Vomiting (PONV) Past Psychological History: No Psychological Hx Reported Past Alcohol Use History: None Reported Past Drug Use History: None Reported - Past Family History Father Family Medical History: Myocardial Infarction ([place]) Mother Family Medical History: CVA/TIA, Diabetes Mellitus Sister(s) Family Medical History: Cancer General Exam Limitations: no limitations General appearance: alert, in no apparent distress Head exam: Present: atraumatic, normocephalic, normal inspection Eye exam: Present: normal appearance, PERRL, EOMI. Absent: scleral icterus, conjunctival injection, periorbital swelling ENT exam: Present: normal exam, mucous membranes moist Neck exam: Present: normal inspection. Absent: tenderness, meningismus, lymphad enopathy Respiratory exam: Present: normal lung sounds bilaterally. Absent: respiratory distress, wheezes, rales, rhonchi, stridor Cardiovascular Exam: Present: regular rate, normal rhythm, normal heart sounds. Absent: systolic murmur, diastolic murmur, rubs, gallop, clicks GI/Abdominal exam: Present: soft, normal bowel sounds. Absent: distended, tenderness, guarding, rebound, rigid Extremities exam: Present: normal inspection, full ROM, normal capillary refill. Absent: tenderness, pedal edema, joint swelling, calf tenderness Back exam: Present: normal inspection Neurological exam: Present: alert, oriented X3, CN II-XII intact Psychiatric exam: Present: normal affect, normal mood Skin exam: Present: warm, dry, intact, normal color. Absent: rash Course Vital Signs 07/06/20 07/06/20 16:21 17:55 Temperature 98.6 F Pulse Rate 95 100 Respiratory 18 18 Rate Blood Pressure 133/87 133/65 O2 Sat by Pulse 95 96 Oximetry - Reevaluation(s) Reevaluation #1: 07/06/20 18:55 Medical records reviewed Reevaluation #2: 07/06/20 18:55 The patient is informed of results here in the ER questions answered EKG Findings - EKG Comments: EKG Findings:: EKG is sinus rhythm 89 ND 178 QRS 90 QTC 445 Medical Decision Making - Medical Decision Making 74 female DF for evaluation patient presenting today for evaluation regarding known positive coronavirus. Patient will be admitted for coronavirus and positive pneumonia - Lab Data Result diagrams: 07/06/20 16:29 07/06/20 16:29 Lab Results 07/06/20 07/06/20 07/06/20 Range/Units 16:29 16:29 16:29 WBC 9.1 (3.8-10.6) k/uL RBC 3.48 L (3.80-5.40) m/uL Hgb 8.8 L (11.4-16.0) gm/dL Hct 28.1 L (34.0-46.0) % MCV 80.7 (80.0-100.0) fL MCH 25.4 (25.0-35.0) pg MCHC 31.5 (31.0-37.0) g/dL RDW 16.6 H (11.5-15.5) % Plt Count 451 H (150-450) k/uL Neutrophils % 87 % Lymphocytes % 8 % Monocytes % 3 % Eosinophils % 2 % Basophils % 0 % Neutrophils # 7.9 H (1.3-7.7) k/uL Lymphocytes # 0.7 L (1.0-4.8) k/uL Monocytes # 0.3 (0-1.0) k/uL Eosinophils # 0.2 (0-0.7) k/uL Basophils # 0.0 (0-0.2) k/uL Hypochromasia Moderate Anisocytosis Slight PT (9.0-12.0) sec INR (<1.2) APTT (22.0-30.0) sec Sodium 136 L (137-145) mmol/L Potassium 4.1 (3.5-5.1) mmol/L Chloride 109 H (98-107) mmol/L Carbon Dioxide 19 L (22-30) mmol/L Anion Gap 8 mmol/L BUN 16 (7-17) mg/dL Creatinine 0.73 (0.52-1.04) mg/dL Est GFR (CKD-EPI)AfAm >90 (>60 ml/min/1.73 sqM) Est GFR (CKD-EPI)NonAf 81 (>60 ml/min/1.73 sqM) Glucose 217 H (74-99) mg/dL Plasma Lactic Acid Ambrosio 1.5 (0.7-2.0) mmol/L Calcium 8.4 (8.4-10.2) mg/dL Phosphorus 3.3 (2.5-4.5) mg/dL Magnesium 1.8 (1.6-2.3) mg/dL Total Bilirubin 0.4 (0.2-1.3) mg/dL AST 62 H (14-36) U/L ALT 32 (4-34) U/L Alkaline Phosphatase 73 (38-126) U/L Lactate Dehydrogenase 536 (313-618) U/L Creatine Kinase 34 (30-135) U/L Troponin I (0.000-0.034) ng/mL C-Reactive Protein 13.1 H (<10.0) mg/L Total Protein 6.7 (6.3-8.2) g/dL Albumin 3.2 L (3.5-5.0) g/dL TSH 0.448 L (0.465-4.680) mIU/L 07/06/20 07/06/20 Range/Units 16:29 17:50 WBC (3.8-10.6) k/uL RBC (3.80-5.40) m/uL Hgb (11.4-16.0) gm/dL Hct (34.0-46.0) % MCV (80.0-100.0) fL MCH (25.0-35.0) pg MCHC (31.0-37.0) g/dL RDW (11.5-15.5) % Plt Count (150-450) k/uL Neutrophils % % Lymphocytes % % Monocytes % % Eosinophils % % Basophils % % Neutrophils # (1.3-7.7) k/uL Lymphocytes # (1.0-4.8) k/uL Monocytes # (0-1.0) k/uL Eosinophils # (0-0.7) k/uL Basophils # (0-0.2) k/uL Hypochromasia Anisocytosis PT 12.1 H (9.0-12.0) sec INR 1.2 H (<1.2) APTT 24.4 (22.0-30.0) sec Sodium (137-145) mmol/L Potassium (3.5-5.1) mmol/L Chloride (98-107) mmol/L Carbon Dioxide (22-30) mmol/L Anion Gap mmol/L BUN (7-17) mg/dL Creatinine (0.52-1.04) mg/dL Est GFR (CKD-EPI)AfAm (>60 ml/min/1.73 sqM) Est GFR (CKD-EPI)NonAf (>60 ml/min/1.73 sqM) Glucose (74-99) mg/dL Plasma Lactic Acid Ambrosio (0.7-2.0) mmol/L Calcium (8.4-10.2) mg/dL Phosphorus (2.5-4.5) mg/dL Magnesium (1.6-2.3) mg/dL Total Bilirubin (0.2-1.3) mg/dL AST (14-36) U/L ALT (4-34) U/L Alkaline Phosphatase (38-126) U/L Lactate Dehydrogenase (313-618) U/L Creatine Kinase (30-135) U/L Troponin I <0.012 (0.000-0.034) ng/mL C-Reactive Protein (<10.0) mg/L Total Protein (6.3-8.2) g/dL Albumin (3.5-5.0) g/dL TSH (0.465-4.680) mIU/L - Radiology Data Radiology results: report reviewed (Chest x-ray positive for pneumonia), image reviewed Disposition Clinical Impression: Community acquired pneumonia, Weakness Disposition: ADMITTED IP TO THIS [facility] Condition: Fair Is patient prescribed a controlled substance at d/c from ED?: No Referrals: Dariusz Jacques DO [Primary Care Provider] - 1-2 days
--- NOTE | 2020-07-06 17:17 | XR ---
EXAMINATION TYPE: XR chest 1V portable DATE OF EXAM: 07/06/2020 COMPARISON: 11/04/2019 HISTORY: Pneumonia. TECHNIQUE: FINDINGS: There is no heart failure. There is some mild linear density right lung base. There is mini mal linear density left midlung. There are no hilar masses. There is some mild coalescent infiltrate below the right perihilum. IMPRESSION: There is some infiltrate and atelectasis mainly in the right lower lobe that is new jose j red to old exam.
[2020-07-06] MEDS ORDERED: HYDROmorphone 1 MG/ML 1 ML SYRINGE IVP STA (17:31)
[2020-07-06 18:23] LABS: INR 1.2 (<1.2); Prothrombin Time 12.1 sec (9.0-12.0)
[2020-07-06 18:24] LABS: Partial Thromboplastin Time 24.4 sec (22.0-30.0)
[2020-07-06] MEDS ORDERED: PNEUMONIA PROTOCOL UTILIZED 1 EACH MISC PO PRN (18:39)
[2020-07-06] MEDS ORDERED: AZITHROMYCIN 500 MG in SODIUM CHLORIDE 0.9% 250 ML IVPB STA (18:39)
[2020-07-06] MEDS: SODIUM CHLORIDE 0.9% 1,000 ML IV SCH (19:10)
[2020-07-06] MEDS ORDERED: ACETAMINOPHEN TAB 500 MG TAB PO PRN (20:33)
[2020-07-06] MEDS ORDERED: traMADol 50 MG TAB PO PRN (20:33)
[2020-07-06] MEDS ORDERED: NITROGLYCERIN SL TABS 0.4 MG TAB SUBLINGUAL PRN (20:33)
[2020-07-06] MEDS: metFORMIN 500 MG TAB PO SCH (22:43)
[2020-07-06] MEDS: GABAPENTIN 300 MG CAP PO SCH (22:43)
[2020-07-06] MEDS: METOPROLOL TARTRATE 25 MG TAB PO SCH (22:44)
[2020-07-06] MEDS: FLUTICASONE 50MCG/SPRAY NASAL 16GM EA NOSTRIL SCH (22:44)
[2020-07-06] MEDS: ASPIRIN 81 MG PO SCH (22:44)
[2020-07-06] MEDS: amLODIPine 5 MG TAB PO SCH (22:44)
[2020-07-07] MEDS: INSULIN DETEMIR (LEVEMIR) 100 UNIT/ML SYR SQ SCH ×2 (00:57→21:04)
[2020-07-07] MEDS: SODIUM CHLORIDE 0.9% 1,000 ML IV SCH ×2 (05:25→18:15)
--- NOTE | 2020-07-07 08:50 | XR ---
EXAMINATION TYPE: XR chest 1V portable DATE OF EXAM: 07/07/2020 COMPARISON: Prior chest x-ray 07/06/2020 HISTORY: Pneumonia TECHNIQUE: Single frontal view of the chest is obtained. FINDINGS: Marked arthropathy noted in the right shoulder. Lung volumes are low and the patient is ro tated. No pneumothorax or pleural effusion. Some minimal patchy basilar density is present. Heart is stable. IMPRESSION: Difficult to exclude basilar pneumonia, expiratory rotated exam. Follow-up PA and latera l chest x-ray may be of benefit.
[2020-07-07] MEDS ORDERED: predniSONE 10 MG TAB PO SCH (09:00)
[2020-07-07] MEDS ORDERED: INSULIN ASPART (NovoLOG) 100 UNIT/ML VIAL SQ SCH ×2 (09:00→12:30)
[2020-07-07] MEDS ORDERED: PIOGLITAZONE 15 MG TAB PO SCH (09:00)
[2020-07-07] MEDS: CRANBERRY 300 MG PO SCH (09:04)
[2020-07-07 09:13] LABS: Glucose,Whole Blood 158 mg/dL (75-99)
[2020-07-07] MEDS: GABAPENTIN 300 MG CAP PO SCH ×2 (09:21→21:03)
[2020-07-07] MEDS: METOPROLOL TARTRATE 50 MG TAB PO SCH (09:21)
[2020-07-07] MEDS: ZINC SULFATE 220 MG CAP PO SCH (09:21)
[2020-07-07] MEDS: CLOPIDOGREL 75 MG TAB PO SCH (09:21)
[2020-07-07] MEDS: ASCORBIC ACID 500 MG TAB PO SCH (09:21)
[2020-07-07] MEDS: CHOLECALCIFEROL 1,000 UNIT TAB PO SCH (09:21)
[2020-07-07] MEDS: FUROSEMIDE 20 MG TAB PO SCH (09:21)
[2020-07-07] MEDS: FERROUS SULFATE 325 MG TAB PO SCH (09:21)
[2020-07-07] MEDS: CALCIUM CARB-VIT D 500MG-200UN 1 EACH TAB PO SCH (09:21)
[2020-07-07] MEDS: ISOSORBIDE MONONITRATE ER 60 MG TAB.ER.24H PO SCH ×2 (09:22→21:04)
[2020-07-07] MEDS: ENOXAPARIN 40 MG/0.4 ML SYRINGE SQ SCH (09:22)
[2020-07-07] MEDS: metFORMIN 500 MG TAB PO SCH ×2 (09:22→21:04)
[2020-07-07] MEDS: MULTIVITAMINS, THERA 1 EACH TAB PO SCH (09:22)
[2020-07-07 10:16] LABS: Ferritin 40.5 ng/mL (10.0-291.0)
[2020-07-07] MEDS: LOPERAMIDE 2 MG CAP PO PRN ×2 (10:27→13:52)
[2020-07-07] MEDS: dexAMETHasone 2 MG TAB PO SCH (10:27)
[2020-07-07 10:58] LABS: Appearance,Urine Clear (Clear); Bacteria,Urine Occasional /hpf; Bilirubin,Urine Negative (Negative); Blood,Urine Negative (Negative); Color,Urine Yellow; Glucose,Urine (UA) Negative (Negative); Ketones,Urine Negative (Negative); Leukocyte Esterase,Urine Large (Negative); Nitrite,Urine Positive (Negative); PH, Urine 6.5 (5.0-8.0); Protein,Urine Trace (Negative); RBC,Urine 1 /hpf (0-5); Specific Gravity,Urine 1.015 (1.001-1.035); Squamous Epithelial Cell,Urine 1 /hpf (0-4); Urobilinogen,Urine <2.0 mg/dL (<2.0); WBC,Urine 16 /hpf (0-5)
[2020-07-07 11:28] LABS: Glucose,Whole Blood 55 mg/dL (75-99)
[2020-07-07 12:09] LABS: Glucose,Whole Blood 92 mg/dL (75-99)
--- NOTE | 2020-07-07 12:18 | P.HPIM ---
History of Present Illness H&P Date: 07/07/20 HISTORY OF PRESENT ILLNESS This is a 74-year-old female patient of Dr. Jacques with past medical history of hypertension, hyperlipidemia, diabetes mellitus type II insulin requiring, generalized osteoarthritis, CAD with prior DC in 1991 and anemia with unknown cause. Patient states that she was diagnosed with colon 3 weeks ago. She denies having any fever, nausea or vomiting. 2 weeks ago she did have diarrhea. She complains of cough with yellow sputum production. No hemoptysis. She mervin es any shortness of breath. No abdominal pain. She has trace pedal edema. Patient states that she never leaves the home but she did have exposure to cold and when her 's brother and sister came to the home. Her is also been diagnosed with COVID-19 but he has not required any treatment. Patient came into [facility] emergency center for evaluation. She was afebrile, heart rate 95, blood pressure 133/87, pulse ox 95% on room air. WBC 9.1, hemoglobin 8.8, platelet count 451. Lymphocytes 0.7. INR 1.2. Sodium 136, potassium 4.1, chloride 109, CO2 19, creatinine 0.73. Blood sugar 217. Phosphorus 3.3, magnesium 1.8. Total bilirubin 0.4 area ferritin 42.5. AST 62, ALT 32, alkaline phosphatase 73. LDH 536. C-reactive protein 13.1. Troponin negative. TSH or 8. Urinalysis blood positive, leukoesterase large, WBC 16, bacteria occasional. Covid 19 positive. Initial chest x-ray reveals infiltrate and atelectasis right lower lobe. Repeat chest x-ray reveals difficult to exclude basilar pneumonia. Follow-up may be of benefit. Patient was admitted to the [facility] floor and consult with infectious disease and pulmonary medicine. REVIEW OF SYSTEMS Constitutional: No fever, no chills, no night sweats. No weight change. No weakness, fatigue or lethargy. No daytime sleepiness. EENT: No headache. No blurred vision or double vision, no loss of vision. No loss of Hearing, no ringing in the ears, no dizziness. No nasal drainage or congestion. No epistaxis. No sore throat. Lungs: No shortness of breath, reports cough, reports sputum production. No wheezing. Cardiovascular: No chest pain, no lower extremity edema. No palpitations. No paroxysmal nocturnal dyspnea. No orthopnea. No lightheadedness or dizziness. No syncopal episodes. Abdominal: No abdominal pain. No nausea, vomiting. No diarrhea. No constipation. No bloody or tarry stools. No loss of appetite. Genitourinary: No dysuria, increased frequency, urgency. No urinary retention. Musculoskeletal: No myalgias. No muscle weakness, no gait dysfunction, no frequent falls. No back pain. No neck pain. Integumentary: No wounds, no lesions. No rash or pruritus. Neurologic: No aphasia. No facial droop. No change in mentation. No head injury. No headache. Psychiatric: No depression. No anxiety. Endocrine: No abnormal blood sugars. SOCIAL HISTORY Patient smoked for 29 years 1 pack per day and quit in 1991. She denies any alcohol use, marijuana use or illicit drug use. She has an inhaler which she uses rarely. No CPAP, nebulizer oxygen at home. She lives at home with her .. FAMILY HISTORY Mother at age 71 from a stroke. Father at age 64 from a myocardial infarction. Patient had one half sister that of breast cancer. She does not have any brothers. Patient has 2 children with no major medical problems.. PHYSICAL EXAMINATION Gen: This is a 74-year-old morbidly obese female. She is resting in bed and appears to be comfortable and in no acute distress. HEENT: Head is atraumatic, normocephalic. Pupils equal, round. Sclerae is anicteric. NECK: Supple. No JVD. No lymphadenopathy. No thyromegaly. LUNGS: Diminished to the base. No intercostal retractions. HEART: Regular rate and rhythm. Systolic murmur. ABDOMEN: Soft. Bowel sounds are present. No masses. No tenderness. No right upper quadrant tenderness. EXTREMITIES: Trace bilateral pedal edema. Right foot drop. NEUROLOGICAL: Patient is awake, alert and oriented x3. Cranial nerves 2 through 12 are grossly intact. ASSESSMENT AND PLAN 1. Bilateral pneumonia, possible Covid pneumonitis. Continue azithromycin and ceftriaxone. Pulmonary consult, ID consult. 2. Covid pneumonitis. Patient started on vitamin C 500 mg daily, vitamin D 200 0 units daily, dexamethasone 6 mg daily, Lovenox 40 mg subcu daily. 3. Urinary tract infection. Continue ceftriaxone. Urine culture and blood culture in progress. 4. History of coronary artery disease and DC in the past. Continue aspirin 81 mg daily, Lipitor 20 mg every 48 hours, Lopressor, Imdur 60 mg twice daily. 5. Hypertension. Continue Lopressor 50 mg in the a.m. and 25 at bedtime, Norvasc 5 mg at bedtime. 6. Hyperlipidemia. Continue atorvastatin. 7. Diabetes mellitus type 2, uncontrolled with hypoglycemia. Continue metformin 1000 mg twice daily, Levemir 18 units at bedtime, NovoLog scale before meals and at bedtime. Hold Actos and scheduled NovoLog. 8. Generalized osteoarthritis. Continue gabapentin, vitamin B12, Celebrex on hold. 9. GI prophylaxis. Pepcid. Patient will be admitted to the hospital for a minimum of 2 night stay. DISCHARGE PLAN Most likely return home with homecare. Impression and plan of care have been directed as dictated by the signing p cecil. Katie James nurse practitioner acting as scribe for signing physician. Past Medical History Past Medical History: Chest Pain / Angina, Diabetes Mellitus, Hearing Disorder / Deafness, Hyperlipidemia, Hypertension, Myocardial Infarction (DC), Osteoar thritis (OA) Additional Past Medical History / Comment(s): power chair- ambulates only a few feet, swelling of lower leg comes and goes, urinary leakage , neuropathy Last Myocardial Infarction Date:: 1991 History of Any Multi-Drug Resistant Organisms: None Reported Past Surgical History: Appendectomy, Heart Catheterization, Hysterectomy, Orthopedic Surgery, Tonsillectomy Additional Past Surgical History / Comment(s): ki hip replacements, hemorrhoidectomy Past Anesthesia/Blood Transfusion Reactions: Postoperative Nausea & Vomiting (PONV) Past Psychological History: No Psychological Hx Reported Smoking Status: Never smoker Past Alcohol Use History: None Reported Additional Past Alcohol Use History / Comment(s): smoked for 29 years 1ppd, quit november 1991 Past Drug Use History: None Reported - Past Family History Father Family Medical History: Myocardial Infarction ([place]) Mother Family Medical History: CVA/TIA, Diabetes Mellitus Sister(s) Family Medical History: Cancer Medications and Allergies Home Medications Medication Instructions Recorded Confirmed Type Ascorbic Acid [Vitamin C] 500 mg PO DAILY 08/21/15 07/06/20 History Aspirin 81 mg PO HS 08/21/15 07/06/20 History Atorvastatin Calcium [Lipitor] 20 mg PO Q48H 08/21/15 07/06/20 History Clopidogrel Bisulfate [Plavix] 75 mg PO DAILY 08/21/15 07/06/20 History Ezetimibe [Zetia] 10 mg PO Q48H 08/21/15 07/06/20 History Gabapentin 300 mg PO BID 08/21/15 07/06/20 History Isosorbide Mononitrate ER [Imdur] 60 mg PO BID PRN 08/21/15 07/06/20 History Pioglitazone HCl [Actos] 15 mg PO DAILY 08/21/15 07/06/20 History amLODIPine [Norvasc] 5 mg PO HS 08/21/15 07/06/20 History Calcium Carb-Vit D 500Mg-200Un 1 tab PO DAILY 06/01/16 07/06/20 History [Oscal 500+D] INSULIN LISPRO (humaLOG) [humaLOG] 9 units SQ BID@0900,1800 06/01/16 07/06/20 History INSULIN LISPRO (humaLOG) [humaLOG] See Protocol SQ AC-TID PRN 06/01/16 07/06/20 History Insulin Glargine [Lantus] 18 unit SQ HS 06/01/16 07/06/20 History Multivitamins, Thera [Multivitamin 1 tab PO DAILY 11/17/16 07/06/20 History (formulary)] Celecoxib [CeleBREX] 200 mg PO BID 11/04/19 07/06/20 History Cranberry Concentrate 300mg 2 tab PO DAILY 11/04/19 07/06/20 History Ergocalciferol [Vitamin D2 50,000 unit PO TU 11/04/19 07/06/20 History (DRISDOL)] Ferrous Sulfate [Iron (65 MG 325 mg PO DAILY 11/04/19 07/06/20 History Elemental)] Furosemide [Lasix] 20 mg PO DAILY 11/04/19 07/06/20 History Ibuprofen [Motrin] 800 mg PO Q8H PRN 11/04/19 07/06/20 History metFORMIN HCL [Glucophage] 1,000 mg PO BID 11/04/19 07/06/20 History traMADol HCL 50 mg PO TID PRN 11/04/19 07/06/20 History Metoprolol Tartrate [Lopressor] 25 mg PO HS #0 11/06/19 07/06/20 Rx Metoprolol Tartrate [Lopressor] 50 mg PO QAM #0 11/06/19 07/06/20 Rx Nitroglycerin Sl Tabs [Nitrostat] 0.4 mg SUBLINGUAL Q5M PRN #25 tab 11/06/19 07/06/20 Rx Acetaminophen Tab [Tylenol Tab] 1,000 mg PO Q6HR PRN 07/06/20 07/06/20 History Fluticasone Nasal [place] [Flonase 2 spr EA NOSTRIL HS 07/06/20 07/06/20 History Nasal [place]] INSULIN LISPRO (humaLOG) [humaLOG] 8 units SQ AC-LUNCH 07/06/20 07/06/20 History Loperamide HCl [Imodium A-D] 2 mg PO TID PRN 07/06/20 07/06/20 History predniSONE 10 mg PO DAILY 07/06/20 07/06/20 History Allergies Allergy/AdvReac Type Severity Reaction Status Date / Time acetaminophen [From [place]] Allergy Severe Diarrhea Verified 07/06/20 18:55 hydrocodone [From [place]] Allergy Severe Diarrhea Verified 07/06/20 18:55 meloxicam [From Mobic] Allergy Diarrhea Verified 07/06/20 18:55 Penicillins Allergy Rash/Hives Verified 07/06/20 18:55 tobramycin Allergy Rash/Hives Verified 07/06/20 18:55 Physical Exam Vitals: Vital Signs Temp Pulse Pulse Resp BP BP Pulse Ox 07/07/20 07:00 98.1 F 83 17 133/78 94 L 07/07/20 02:16 98.3 F 82 16 127/64 92 L 07/07/20 00:00 18 07/06/20 23:00 98.3 F 73 18 151/74 93 L 07/06/20 20:30 20 07/06/20 19:15 95 20 143/64 97 07/06/20 18:39 95 07/06/20 17:55 100 18 133/65 96 07/06/20 16:21 98.6 F 95 18 133/87 95 Intake and Output 07/06/20 07/07/20 07/07/20 22:59 06:59 14:59 Intake Total 400 1150 Output Total 300 Balance 400 850 Intake: Intake, IV Titration 750 Amount Azithromycin 500 mg In 250 Sodium Chloride 0.9% 250 ml @ 250 mls/hr IVPB DAILY@1900 [facility] Rx#: [id number] Sodium Chloride 0.9% 1, 500 000 ml @ 100 mls/hr IV . Q10H [facility] Rx#:[id number] Oral 400 400 Output: Urine 300 Other: Voiding Method Diaper Diaper # Voids 1 2 Weight 127.006 kg Results CBC & Chem 7: 07/06/20 16:29 07/06/20 16:29 Labs: Abnormal Lab Results - Last 24 Hours (Table) 07/06/20 07/06/20 07/06/20 Range/Units 16:29 16:29 17:50 RBC 3.48 L (3.80-5.40) m/uL Hgb 8.8 L (11.4-16.0) gm/dL Hct 28.1 L (34.0-46.0) % RDW 16.6 H (11.5-15.5) % Plt Count 451 H (150-450) k/uL Neutrophils # 7.9 H (1.3-7.7) k/uL Lymphocytes # 0.7 L (1.0-4.8) k/uL PT 12.1 H (9.0-12.0) sec INR 1.2 H (<1.2) Sodium 136 L (137-145) mmol/L Chloride 109 H (98-107) mmol/L Carbon Dioxide 19 L (22-30) mmol/L Glucose 217 H (74-99) mg/dL AST 62 H (14-36) U/L C-Reactive Protein 13.1 H (<10.0) mg/L Albumin 3.2 L (3.5-5.0) g/dL TSH 0.448 L (0.465-4.680) mIU/L Coronavirus (PCR) (Not Detectd) 07/06/20 Range/Units 19:27 RBC (3.80-5.40) m/uL Hgb (11.4-16.0) gm/dL Hct (34.0-46.0) % RDW (11.5-15.5) % Plt Count (150-450) k/uL Neutrophils # (1.3-7.7) k/uL Lymphocytes # (1.0-4.8) k/uL PT (9.0-12.0) sec INR (<1.2) Sodium (137-145) mmol/L Chloride (98-107) mmol/L Carbon Dioxide (22-30) mmol/L Glucose (74-99) mg/dL AST (14-36) U/L C-Reactive Protein (<10.0) mg/L Albumin (3.5-5.0) g/dL TSH (0.465-4.680) mIU/L Coronavirus (PCR) Detected A (Not Detectd) Thrombosis Risk Factor Assmnt - Choose All That Apply Each Factor Represents 1 point: Obesity (BMI >25) Thrombosis Risk Factor Assessment Total Risk Factor Score: 1 Thrombosis Risk Factor Assessment Level: Low Risk
[2020-07-07] MEDS: INSULIN ASPART (NovoLOG) 100 UNIT/ML VIAL SQ SCH ×3 (12:50→21:04)
[2020-07-07 16:47] LABS: Glucose,Whole Blood 181 mg/dL (75-99)
[2020-07-07 20:15] LABS: Glucose,Whole Blood 212 mg/dL (75-99)
[2020-07-07] MEDS: ASPIRIN 81 MG PO SCH (21:02)
[2020-07-07] MEDS: ATORVASTATIN 20 MG TAB PO SCH (21:02)
[2020-07-07] MEDS: EZETIMIBE 10 MG TAB PO SCH (21:03)
[2020-07-07] MEDS: FLUTICASONE 50MCG/SPRAY NASAL 16GM EA NOSTRIL SCH (21:03)
[2020-07-07] MEDS: METOPROLOL TARTRATE 25 MG TAB PO SCH (21:04)
[2020-07-07] MEDS: amLODIPine 5 MG TAB PO SCH (21:04)
--- NOTE | 2020-07-07 23:11 | P.CONS ---
History of Present Illness - Reason for Consult Consult date: 07/07/20 covid Requesting physician: Joshua Sawyer - Chief Complaint Shortness of breath and cough x few days - History of Present Illness Patient is a 74-year-old female with a past medical history for diabetes hypertension coronary artery disease patient presented to the hospital with the shortness of breath and cough for the last few days patient cough is mild to moderate intensity and didn't bring up some yellow sputum no hemoptysis patient denies having any pleuritic chest pain, patient denies having any nausea no vomiting no abdominal pain or any diarrhea, on arrival to the ER the patient was afebrilethe hypoxemia was noticed patient is currently undergoing patient did have a normal white count with lymphopenia, the patient did have a normal creatinine AST 62 CRP is 13.1 procalcitonin not done, patient did have mildly positive UA chest x-ray with some infiltrate atelectasis being right lower lobe, wang PCR came back positive , patient was started on Rocephin and Zithromax dexamethasone Lovenox patient was admitted to the hospital and facility was cons ulted for further management of antibiotic therapy, patient admits to improvement in her symptomatology since being admitted to the hospital Review of Systems Positive point has been mentioned in the HPI rest of the systems are negative Past Medical History Past Medical History: Chest Pain / Angina, Diabetes Mellitus, Hearing Disorder / Deafness, Hyperlipidemia, Hypertension, Myocardial Infarction ([place]), Osteoarthritis (OA) Additional Past Medical History / Comment(s): power chair- ambulates only a few feet, swelling of lower leg comes and goes, urinary leakage , neuropathy Last Myocardial Infarction Date:: 1991 History of Any Multi-Drug Resistant Organisms: None Reported Past Surgical History: Appendectomy, Heart Catheterization, Hysterectomy, Orthopedic Surgery, Tonsillectomy Additional Past Surgical History / Comment(s): ki hip replacements, hemorrhoidectomy Past Anesthesia/Blood Transfusion Reactions: Postoperative Nausea & Vomiting (PONV) Past Psychological History: No Psychological Hx Reported Smoking Status: Never smoker Past Alcohol Use History: None Reported Additional Past Alcohol Use History / Comment(s): smoked for 29 years 1ppd, quit november 1991 Past Drug Use History: None Reported - Past Family History Father Family Medical History: Myocardial Infarction ([place]) Mother Family Medical History: CVA/TIA, Diabetes Mellitus Sister(s) Family Medical History: Cancer Medications and Allergies Home Medications Medication Instructions Recorded Confirmed Type Ascorbic Acid [Vitamin C] 500 mg PO DAILY 08/21/15 07/06/20 History Aspirin 81 mg PO HS 08/21/15 07/06/20 History Atorvastatin Calcium [Lipitor] 20 mg PO Q48H 08/21/15 07/06/20 History Clopidogrel Bisulfate [Plavix] 75 mg PO DAILY 08/21/15 07/06/20 History Ezetimibe [Zetia] 10 mg PO Q48H 08/21/15 07/06/20 History Gabapentin 300 mg PO BID 08/21/15 07/06/20 History Isosorbide Mononitrate ER [Imdur] 60 mg PO BID PRN 08/21/15 07/06/20 History Pioglitazone HCl [Actos] 15 mg PO DAILY 08/21/15 07/06/20 History amLODIPine [Norvasc] 5 mg PO HS 08/21/15 07/06/20 History Calcium Carb-Vit D 500Mg-200Un 1 tab PO DAILY 06/01/16 07/06/20 History [Oscal 500+D] INSULIN LISPRO (humaLOG) [humaLOG] 9 units SQ BID@0900,1800 06/01/16 07/06/20 History INSULIN LISPRO (humaLOG) [humaLOG] See Protocol SQ AC-TID PRN 06/01/16 07/06/20 History Insulin Glargine [Lantus] 18 unit SQ HS 06/01/16 07/06/20 History Multivitamins, Thera [Multivitamin 1 tab PO DAILY 11/17/16 07/06/20 History (formulary)] Celecoxib [CeleBREX] 200 mg PO BID 11/04/19 07/06/20 History Cranberry Concentrate 300mg 2 tab PO DAILY 11/04/19 07/06/20 History Ergocalciferol [Vitamin D2 50,000 unit PO TU 11/04/19 07/06/20 History (DRISDOL)] Ferrous Sulfate [Iron (65 MG 325 mg PO DAILY 11/04/19 07/06/20 History Elemental)] Furosemide [Lasix] 20 mg PO DAILY 11/04/19 07/06/20 History Ibuprofen [Motrin] 800 mg PO Q8H PRN 11/04/19 07/06/20 History metFORMIN HCL [Glucophage] 1,000 mg PO BID 11/04/19 07/06/20 History traMADol HCL 50 mg PO TID PRN 11/04/19 07/06/20 History Metoprolol Tartrate [Lopressor] 25 mg PO HS #0 11/06/19 07/06/20 Rx Metoprolol Tartrate [Lopressor] 50 mg PO QAM #0 11/06/19 07/06/20 Rx Nitroglycerin Sl Tabs [Nitrostat] 0.4 mg SUBLINGUAL Q5M PRN #25 tab 11/06/19 07/06/20 Rx Acetaminophen Tab [Tylenol Tab] 1,000 mg PO Q6HR PRN 07/06/20 07/06/20 History Fluticasone Nasal [place] [Flonase 2 spr EA NOSTRIL HS 07/06/20 07/06/20 History Nasal [place]] INSULIN LISPRO (humaLOG) [humaLOG] 8 units SQ AC-LUNCH 07/06/20 07/06/20 History Loperamide HCl [Imodium A-D] 2 mg PO TID PRN 07/06/20 07/06/20 History predniSONE 10 mg PO DAILY 07/06/20 07/06/20 History Allergies Allergy/AdvReac Type Severity Reaction Status Date / Time acetaminophen [From [place]] Allergy Severe Diarrhea Verified 07/06/20 18:55 hydrocodone [From [place]] Allergy Severe Diarrhea Verified 07/06/20 18:55 meloxicam [From [facility]] Allergy Diarrhea Verified 07/06/20 18:55 Penicillins Allergy Rash/Hives Verified 07/06/20 18:55 tobramycin Allergy Rash/Hives Verified 07/06/20 18:55 Physical Exam Vitals: Vital Signs Temp Pulse Pulse Resp BP BP Pulse Ox 07/07/20 07:00 98.1 F 83 17 133/78 94 L 07/07/20 02:16 98.3 F 82 16 127/64 92 L 07/07/20 00:00 18 07/06/20 23:00 98.3 F 73 18 151/74 93 L 07/06/20 20:30 20 07/06/20 19:15 95 20 143/64 97 07/06/20 18:39 95 07/06/20 17:55 100 18 133/65 96 07/06/20 16:21 98.6 F 95 18 133/87 95 Intake and Output 07/06/20 07/07/20 07/07/20 22:59 06:59 14:59 Intake Total 400 1150 Output Total 300 Balance 400 850 Intake: Intake, IV Titration 750 Amount Azithromycin 500 mg In 250 Sodium Chloride 0.9% 250 ml @ 250 mls/hr IVPB DAILY@1900 [facility] Rx#: [id number] Sodium Chloride 0.9% 1, 500 000 ml @ 100 mls/hr IV . Q10H [facility] Rx#:[id number] Oral 400 400 Output: Urine 300 Other: Voiding Method Diaper Diaper # Voids 1 2 Weight 127.006 kg GENERAL DESCRIPTION: An elderly female lying in bed, no distress. No tachypnea or accessory muscle of respiration use. HEENT: Shows Pallor , no scleral icterus. Oral mucous membrane is dry. No pharyngeal erythema or thrush NECK: Trachea central, no thyromegaly. LUNGS: Unlabored breathing. Decreased intensity of breath sounds. No wheeze or crackle. HEART: S1, S2, regular rate and rhythm. No loud murmur ABDOMEN: Soft, no tenderness , guarding or rigidity, no organomegaly EXTREMITIES: No edema of feet. SKIN: No rash, no masses palpable. NEUROLOGICAL: The patient is awake, alert, oriented x3, mood and affect normal. Results CBC & Chem 7: 07/06/20 16:29 07/06/20 16:29 Labs: Abnormal Lab Results - Last 24 Hours (Table) 07/06/20 07/06/20 07/06/20 Range/Units 16:29 16:29 17:50 RBC 3.48 L (3.80-5.40) m/uL Hgb 8.8 L (11.4-16.0) gm/dL Hct 28.1 L (34.0-46.0) % RDW 16.6 H (11.5-15.5) % Plt Count 451 H (150-450) k/uL Neutrophils # 7.9 H (1.3-7.7) k/uL Lymphocytes # 0.7 L (1.0-4.8) k/uL PT 12.1 H (9.0-12.0) sec INR 1.2 H (<1.2) Sodium 136 L (137-145) mmol/L Chloride 109 H (98-107) mmol/L Carbon Dioxide 19 L (22-30) mmol/L Glucose 217 H (74-99) mg/dL POC Glucose (mg/dL) (75-99) mg/dL AST 62 H (14-36) U/L C-Reactive Protein 13.1 H (<10.0) mg/L Albumin 3.2 L (3.5-5.0) g/dL TSH 0.448 L (0.465-4.680) mIU/L Urine Protein (Negative) Urine Nitrite (Negative) Ur Leukocyte Esterase (Negative) Urine WBC (0-5) /hpf Urine Bacteria (None) /hpf Coronavirus (PCR) (Not Detectd) 07/06/20 07/07/20 07/07/20 Range/Units 19:27 09:11 10:10 RBC (3.80-5.40) m/uL Hgb (11.4-16.0) gm/dL Hct (34.0-46.0) % RDW (11.5-15.5) % Plt Count (150-450) k/uL Neutrophils # (1.3-7.7) k/uL Lymphocytes # (1.0-4.8) k/uL PT (9.0-12.0) sec INR (<1.2) Sodium (137-145) mmol/L Chloride (98-107) mmol/L Carbon Dioxide (22-30) mmol/L Glucose (74-99) mg/dL POC Glucose (mg/dL) 158 H (75-99) mg/dL AST (14-36) U/L C-Reactive Protein (<10.0) mg/L Albumin (3.5-5.0) g/dL TSH (0.465-4.680) mIU/L Urine Protein Trace H (Negative) Urine Nitrite Positive H (Negative) Ur Leukocyte Esterase Large H (Negative) Urine WBC 16 H (0-5) /hpf Urine Bacteria Occasional H (None) /hpf Coronavirus (PCR) Detected A (Not Detectd) 07/07/20 Range/Units 11:25 RBC (3.80-5.40) m/uL Hgb (11.4-16.0) gm/dL Hct (34.0-46.0) % RDW (11.5-15.5) % Plt Count (150-450) k/uL Neutrophils # (1.3-7.7) k/uL Lymphocytes # (1.0-4.8) k/uL PT (9.0-12.0) sec INR (<1.2) Sodium (137-145) mmol/L Chloride (98-107) mmol/L Carbon Dioxide (22-30) mmol/L Glucose (74-99) mg/dL POC Glucose (mg/dL) 55 L (75-99) mg/dL AST (14-36) U/L C-Reactive Protein (<10.0) mg/L Albumin (3.5-5.0) g/dL TSH (0.465-4.680) mIU/L Urine Protein (Negative) Urine Nitrite (Negative) Ur Leukocyte Esterase (Negative) Urine WBC (0-5) /hpf Urine Bacteria (None) /hpf Coronavirus (PCR) (Not Detectd) Assessment and Plan Assessment: 1- patient presented to the hospital with increasing shortness of breath or cough in this patient currently with no fever with some atelectasis infiltrate on the right side patient had been complaining of yellow sputum, and this patie nt has been diagnosed with covid 19 infection and concern for possible secondary bacterial pneumonia (1) Pneumonia due to COVID-19 virus Current Visit: Yes Status: Acute Code(s): U07.1 - COVID-19; J12.89 - OTHER VIRAL PNEUMONIA SNOMED Code(s): 088165118396347122 Plan: 1- we will obtain sputum for Gram stain and culture 2-repeat his CRP and check a pro-calcitonin level as well as LDH and d-dimer 3-continue with the Zithromax Lovenox and dexamethasone 4-patient did not have hypoxemia or need for supplemental oxygen and would not qualify for Remdisivir We will follow on clinical condition and cultures to further adjust medication if needed Thank you for this consultation will follow this patient with you Time with Patient: Greater than 30
[2020-07-08] MEDS ORDERED: AZITHROMYCIN 500 MG in SODIUM CHLORIDE 0.9% 250 ML IVPB SCH ×2
[2020-07-08] MEDS: SODIUM CHLORIDE 0.9% 1,000 ML IV SCH ×3 (02:39→19:27)
--- NOTE | 2020-07-08 02:50 | CONS ---
CONSULTATION PULMONARY/CRITICAL CARE CONSULTATION: DATE OF CONSULTATION: July 07, 2020 This is a 74-year-old female that we were asked to see because of weakness. The patient was brought into the emergency room by EMS. She came in on July 06 at 16:03. She is a 74-year-old female who presented to the emergency room with complaints of just not feeling well and overall weakness. She apparently was tested positive for coronavirus 3 weeks ago. The patient has multiple medical problems and states that currently, other than weakness, she was really denying other complaints such as chest pain, chest discomfort, nausea, vomiting, diarrhea, shortness of breath, cough, chest congestion or phlegm production. She does have a very intermittent mild cough which is nonproductive. Again, she has not been feeling well for a number of days. Currently, the patient is resting comfortably. Her coronavirus PCR test on July 06 was positive. HOME MEDICATIONS: Her current home medications include vitamin C, Lipitor, aspirin, Plavix, cranberry concentrate, Zetia, gabapentin, Imdur, Actos, amlodipine, Os-Sebastian with D, vitamin D3, insulin, multivitamins, Celebrex, vitamin D2, iron, Lasix, Motrin, metformin, prednisone and tramadol. Other medications included vitamin B12, Lopressor, and nitroglycerin tablets. ALLERGIES: Allergies include NORCO, MOBIC, PENICILLIN, and TOBRAMYCIN. MEDICAL HISTORY: Medical history is reviewed. It is positive for angina, diabetes mellitus, deafness, hyperlipidemia, essential hypertension, myocardial infarction, DJD, urinary incontinence, and diabetic neuropathy. In addition, the patient has had a previous myocardial infarction in 1991. SURGICAL HISTORY: Surgical history includes appendectomy, heart catheterization, hysterectomy, tonsillectomy, bilateral hip replacement, and hemorrhoidectomy. SOCIAL HISTORY: Social history is negative for tobacco, alcohol or illicit drug use. FAMILY HISTORY: Family history is positive for a father with myocardial infarction and mother with CVA and diabetes and a sister with cancer. REVIEW OF SYSTEMS: CONSTITUTIONAL: Weakness. NEUROLOGIC: Negative. HEENT: Negative. CARDIOVASCULAR: Negative. PULMONARY: Negative. GI: Negative. : Negative. RHEUMATOLOGIC: Negative. IMMUNOLOGIC: Negative. ENDOCRINOLOGIC: Negative. DERMATOLOGIC: Negative. PHYSICAL EXAMINATION: VITAL SIGNS: Current vital signs are reviewed. Temperature 98.2, heart rate 76, respiratory rate 21 blood pressure 142/78, mean 99, saturations are 97% on room air. GENERAL: Appears in no acute distress. HEENT: Examination is grossly unremarkable. NECK: Supple. Full range of motion. No adenopathy or thyromegaly. Neck veins are flat. CARDIOVASCULAR: Examination reveals regular rhythm and rate. S1, S2 normal. Heart rate 76 beats per minute. No murmur. LUNGS: Reveal relatively clear breath sounds. No wheezes, rhonchi, or crackles. ABDOMEN: Soft. Bowel sounds are heard. EXTREMITIES: Are intact. No edema. SKIN: Without rash. NEUROLOGIC: Examination is brief but nonfocal. LABS: Labs are reviewed. White count 9.1, hemoglobin 8.8, hematocrit 28.1, platelet count 451,000. PT 12.1, INR 1.2, PTT 24.4. Sodium 136, potassium 4.1 chloride 109, CO2 of 19. Anion gap is 8. BUN and creatinine were 16 and 0.73. Glucose 217. The rest of the comprehensive metabolic profile was essentially normal. AST minimally elevated at 62. Troponins were negative. C-reactive protein 13.1. Albumin 3.2 and TSH 0.448. Urine is yellow and clear. There is trace protein, positive for nitrite, also large positive for leukocyte esterase, WBCs 16, bacteria occasionally seen. This is consistent with a possible UTI. Again coronavirus testing was positive. Microbiology is negative. Chest x-ray shows possible bibasilar atelectasis. Again, this is probably more likely atelectasis than infiltrate given the paucity of pulmonary issues. CURRENT MEDICATIONS: Current medications are reviewed. She is currently on Tylenol, amlodipine, ascorbic acid, aspirin, Lipitor, Zithromax, Rocephin, calcium with vitamin D, Plavix, cranberry concentrate, Decadron, Lovenox, vitamin D2, Zetia, iron, Flonase nasal spray, Lasix, gabapentin, insulin, Imdur, Imodium, metformin, metoprolol, multivitamins, nitroglycerin, sodium chloride, tramadol and zinc. ASSESSMENT: 1. Possible COVID-19 pneumonitis, right lower lobe versus community-acquired pneumonia. 2. COVID-19 positive on recent nasopharyngeal PCR testing. 3. Weakness, which may relate to COVID-19 infection. 4. History of myocardial infarction 1991. 5. History of degenerative joint disease. 6. History of essential hypertension. 7. Hyperlipidemia. 8. Angina pectoris. 9. Diabetes with diabetic neuropathy. 10.Deafness. 11.Degenerative joint disease. 12.Urinary incontinence. 13.Multiple other medical problems and comorbidities. PLAN: Currently, the patient is on appropriate medications including antibiotics and Decadron, zinc, etc. We will continue to follow. Prognosis is guarded. No additional recommendations are made. Followup chest x-ray in a day or 2. MMDEBBYL / IJN: [id number] / [email or web address]
[2020-07-08 06:56] LABS: Glucose,Whole Blood 144 mg/dL (75-99)
[2020-07-08] MEDS: CRANBERRY 300 MG PO SCH (08:22)
[2020-07-08] MEDS: INSULIN ASPART (NovoLOG) 100 UNIT/ML VIAL SQ SCH ×4 (08:29→21:21)
[2020-07-08] MEDS: ENOXAPARIN 40 MG/0.4 ML SYRINGE SQ SCH (08:30)
[2020-07-08] MEDS: ISOSORBIDE MONONITRATE ER 60 MG TAB.ER.24H PO SCH ×2 (08:30→21:21)
[2020-07-08] MEDS: dexAMETHasone 2 MG TAB PO SCH (08:30)
[2020-07-08] MEDS: ASCORBIC ACID 500 MG TAB PO SCH (08:30)
[2020-07-08] MEDS: MULTIVITAMINS, THERA 1 EACH TAB PO SCH (08:30)
[2020-07-08] MEDS: CHOLECALCIFEROL 1,000 UNIT TAB PO SCH (08:30)
[2020-07-08] MEDS: CLOPIDOGREL 75 MG TAB PO SCH (08:31)
[2020-07-08] MEDS: GABAPENTIN 300 MG CAP PO SCH ×2 (08:31→21:22)
[2020-07-08] MEDS: metFORMIN 500 MG TAB PO SCH ×2 (08:31→21:22)
[2020-07-08] MEDS: FERROUS SULFATE 325 MG TAB PO SCH (08:31)
[2020-07-08] MEDS: METOPROLOL TARTRATE 50 MG TAB PO SCH (08:31)
[2020-07-08] MEDS: ZINC SULFATE 220 MG CAP PO SCH (08:31)
[2020-07-08] MEDS: CALCIUM CARB-VIT D 500MG-200UN 1 EACH TAB PO SCH (08:32)
[2020-07-08] MEDS: FUROSEMIDE 20 MG TAB PO SCH (08:32)
[2020-07-08] MEDS ORDERED: ERGOCALCIFEROL 50,000 UNIT CAP PO SCH (09:00)
[2020-07-08 11:36] LABS: Glucose,Whole Blood 167 mg/dL (75-99)
--- NOTE | 2020-07-08 12:42 | P.PN ---
Subjective Progress Note Date: 07/08/20 HISTORY OF PRESENT ILLNESS This is a 74-year-old female patient of Dr. Jacques with past medical history of hypertension, hyperlipidemia, diabetes mellitus type II insulin requiring, generalized osteoarthritis, CAD with prior MT in 1991 and anemia with unknown cause. Patient states that she was diagnosed with colon 3 weeks ago. She denies having any fever, nausea or vomiting. 2 weeks ago she did have diarrhea. She complains of cough with yellow sputum production. No hemoptysis. She denies any shortness of breath. No abdominal pain. She has trace pedal edema. Patient states that she never leaves the home but she did have exposure to cold and when her 's brother and sister came to the home. Her is also been diagnosed with COVID-19 but he has not required any treatment. Patient came into [facility] emergency center for evaluation. She was afebrile, heart rate 95, blood pressure 133/87, pulse ox 95% on room air. WBC 9.1, hemoglobin 8.8, platelet count 451. Lymphocytes 0.7. INR 1.2. Sodium 136, potassium 4.1, chloride 109, CO2 19, creatinine 0.73. Blood sugar 217. Phosphorus 3.3, magnesium 1.8. Total bilirubin 0.4 area ferritin 42.5. AST 62, ALT 32, alkaline phosphatase 73. LDH 536. C-reactive protein 13.1. Troponin negative. TSH or 8. Urinalysis blood positive, leukoesterase large, WBC 16, bacteria occasional. Covid 19 positive. Initial chest x-ray reveals infiltrate and atelectasis right lower lobe. Repeat chest x-ray reveals difficult to exclude basilar pneumonia. Follow-up may be of benefit. [facility] and consult with infectious disease and pulmonary medicine. 07/08: Patient is followed by infectious disease and pulmonary medicine. She denies any new complaints of breathing status has been stable. Denies having any fever or chills. Pulse ox is 92% on room air, afebrile, heart rate 79, blood pressure 144/72. D-dimer is 2.54. LDH decreased 165, C-reactive protein down to 3, pro calcitonin 0.06. Blood sugars are running between 144 and 212. Urine culture is gram-negative bacilli. Blood culture no growth at 24 hours. Anticipate discharge home tomorrow. REVIEW OF SYSTEMS Constitutional: No fever, no chills, no night sweats. No weight change. No weakness, fatigue or lethargy. EENT: No headache. No blurred vision or double vision, no loss of vision. No loss of Hearing, no ringing in the ears, no dizziness. No nasal drainage or congestion. No epistaxis. No sore throat. Lungs: No shortness of breath, reports cough, reports sputum production. No wheezing. Cardiovascular: No chest pain, no lower extremity edema. No palpitations. No paroxysmal nocturnal dyspnea. No orthopnea. No lightheadedness or dizziness. No syncopal episodes. Abdominal: No abdominal pain. No nausea, vomiting. No diarrhea. No constipation. No bloody or tarry stools. No loss of appetite. Genitourinary: No dysuria, increased frequency, urgency. No urinary retention. Musculoskeletal: No myalgias. No muscle weakness, no gait dysfunction, no frequent falls. No back pain. No neck pain. Integumentary: No wounds, no lesions. No rash or pruritus. Neurologic: No aphasia. No facial droop. No change in mentation. No head injury. No headache. Psychiatric: No depression. No anxiety. Endocrine: No abnormal blood sugars. PHYSICAL EXAMINATION Gen: This is a 74-year-old morbidly obese female. She is resting in bed and appears to be comfortable. HEENT: Head is atraumatic, normocephalic. Pupils equal, round. Sclerae is anicteric. NECK: Supple. No JVD. No lymphadenopathy. No thyromegaly. LUNGS: Diminished to the base. No intercostal retractions. HEART: Regular rate and rhythm. Systolic murmur. ABDOMEN: Soft. Bowel sounds are present. No masses. No tenderness. No right upper quadrant tenderness. EXTREMITIES: Trace bilateral pedal edema. Right foot drop. NEUROLOGICAL: Patient is awake, alert and oriented x3. Cranial nerves 2 through 12 are grossly intact. ASSESSMENT AND PLAN 1. Bilateral pneumonia, possible Covid pneumonitis. Continue azithromycin and ceftriaxone. Pulmonary consult, ID consult. 2. Covid pneumonitis. Patient started on vitamin C 500 mg daily, vitamin D 2000 units daily, dexamethasone 6 mg daily, Lovenox 40 mg subcu daily. 3. Urinary tract infection. Continue ceftriaxone. Urine culture and blood culture in progress. 4. History of coronary artery disease and MT in the past. Continue aspirin 81 mg daily, Lipitor 20 mg every 48 hours, Lopressor, Imdur 60 mg twice daily. 5. Hypertension. Continue Lopressor 50 mg in the a.m. and 25 at bedtime, Norvasc 5 mg at bedtime. 6. Hyperlipidemia. Continue atorvastatin. 7. Diabetes mellitus type 2, uncontrolled with hypoglycemia. Continue metformin 1000 mg twice daily, Levemir 18 units at bedtime, NovoLog scale before meals and at bedtime. Hold Actos and scheduled NovoLog. 8. Generalized osteoarthritis. Continue gabapentin, vitamin B12, Celebrex on hold. 9. GI prophylaxis. Pepcid. DISCHARGE PLAN Most likely return home with homecare on Tuesday. Impression and plan of care have been directed as dictated by the signing physician. Katie James nurse practitioner acting as scribe for signing physician. Objective - Vital Signs Vital signs: Vital Signs Temp 97.9 F 07/08/20 07:00 Pulse 79 07/08/20 07:00 Resp 18 07/08/20 07:00 BP 144/72 07/08/20 07:00 Pulse Ox 92 L 07/08/20 07:00 Intake & Output 07/07/20 07/08/20 07/08/20 18:59 06:59 18:59 Output Total 900 Balance -900 Output: Urine 900 Other: # Voids 400 1 # Bowel Movements 2 - Labs CBC & Chem 7: 07/06/20 16:29 07/06/20 16:29 Labs: Abnormal Lab Results - Last 24 Hours (Table) 07/07/20 07/07/20 07/07/20 Range/Units 09:11 10:10 11:25 D-Dimer (<0.60) mg/L FEU POC Glucose (mg/dL) 158 H 55 L (75-99) mg/dL Urine Protein Trace H (Negative) Urine Nitrite Positive H (Negative) Ur Leukocyte Esterase Large H (Negative) Urine WBC 16 H (0-5) /hpf Urine Bacteria Occasional H (None) /hpf 07/07/20 07/07/20 07/08/20 Range/Units 16:45 20:15 06:01 D-Dimer 2.54 H (<0.60) mg/L FEU POC Glucose (mg/dL) 181 H 212 H (75-99) mg/dL Urine Protein (Negative) Urine Nitrite (Negative) Ur Leukocyte Esterase (Negative) Urine WBC (0-5) /hpf Urine Bacteria (None) /hpf 07/08/20 Range/Units 06:54 D-Dimer (<0.60) mg/L FEU POC Glucose (mg/dL) 144 H (75-99) mg/dL Urine Protein (Negative) Urine Nitrite (Negative) Ur Leukocyte Esterase (Negative) Urine WBC (0-5) /hpf Urine Bacteria (None) /hpf Microbiology - Last 24 Hours (Table) 07/06/20 17:54 Blood Culture - Preliminary Blood No Growth after 24 hours 07/07/20 10:10 Urine Culture - Preliminary Urine,Clean Catch
--- NOTE | 2020-07-08 16:29 | P.PN ---
Subjective Progress Note Date: 07/08/20 Principal diagnosis: Covid 19 related pneumonia 74-year-old white female patient that came into the hospital on 2019 for evaluation of weakness and not feeling well, patient apparently tested positive for chronic lumbar is 3 weeks ago, she has multiple medical problems. Her chest x-ray in the emergency department showed possible bibasilar atelectasis, she had lymphopenia with a lymphocyte count of 0.7, her d-dimer is 2.54, sodium is 136, potassium is 4.1, chloride was 109, CO2 was 19, troponin was less than 0.012, CRP was 13.1, and is down to 3.0 on today's labs, pro- calcitonin was negative at 0.06, urinalysis came back positive for large amount of leuks, white blood cells, and occasional bacteria, coronavirus PCR was positive. She remains on room air, her blood pressure is stable, she has been afebrile, she remains on antibiotics, with the azithromycin and Rocephin, Lovenox, she is on daily dose of 6 mg of Decadron, he is on gentle IV hydration. On today's exam she denies any fever or chills, she remains on room air, pulse ox is 92%, hemodynamically patient is stable, her LDH is trending down, pro- calcitonin is negative at 0.06, blood cultures have shown no growth. Objective - Vital Signs Vital signs: Vital Signs Temp 98.2 F 07/08/20 15:00 Pulse 92 07/08/20 15:00 Resp 20 07/08/20 15:00 BP 114/66 07/08/20 15:00 Pulse Ox 94 L 07/08/20 15:00 Intake & Output 07/07/20 07/08/20 07/08/20 18:59 06:59 18:59 Intake Total 500 Output Total 900 Balance -900 500 Intake: Oral 500 Output: Urine 900 Other: # Voids 400 1 # Bowel Movements 2 - Exam GENERAL EXAM: Alert, very pleasant, 74-year-old white female, on room air with pulse ox of 92% comfortable in no apparent distress. HEAD: Normocephalic/atraumatic. EYES: Normal reaction of pupils, equal size. Conjunctiva pink, sclera white. NOSE: Clear with pink turbinates. THROAT: No erythema or exudates. NECK: No masses, no JVD, no thyroid enlargement, no adenopathy. CHEST: No chest wall deformity. Symmetrical expansion. LUNGS: Equal air entry with no crackles, wheeze, rhonchi or dullness. CVS: Regular rate and rhythm, normal S1 and S2, no gallops, no murmurs, no rubs ABDOMEN: Soft, nontender. No hepatosplenomegaly, normal bowel sounds, no guarding or rigidity. EXTREMITIES: No clubbing, no edema, no cyanosis, 2+ pulses and upper and lower extremities. MUSCULOSKELETAL: Muscle strength and tone normal. SPINE: No scoliosis or deformity SKIN: No rashes CENTRAL NERVOUS SYSTEM: Alert and oriented -3. No focal deficits, tone is normal in all 4 extremities. PSYCHIATRIC: Alert and oriented -3. Appropriate affect. Intact judgment and insight. - Labs CBC & Chem 7: 07/06/20 16:29 07/06/20 16:29 Labs: Abnormal Lab Results - Last 24 Hours (Table) 07/07/20 07/07/20 07/08/20 Range/Units 16:45 20:15 06:01 D-Dimer 2.54 H (<0.60) mg/L FEU POC Glucose (mg/dL) 181 H 212 H (75-99) mg/dL C-Reactive Protein (0.0-0.8) mg/dL 07/08/20 07/08/20 07/08/20 Range/Units 06:01 06:54 11:35 D-Dimer (<0.60) mg/L FEU POC Glucose (mg/dL) 144 H 167 H (75-99) mg/dL C-Reactive Protein 3.0 H (0.0-0.8) mg/dL Microbiology - Last 24 Hours (Table) 07/07/20 10:10 Urine Culture - Preliminary Urine,Clean Catch Gram Neg Bacilli 07/06/20 17:54 Blood Culture - Preliminary Blood No Growth after 24 hours Assessment and Plan Plan: Assessment: #1. COVID related 19 related pneumonitis, the chest x-ray showing right lower lobe infiltrate #2. Positive outpatient Covid 19 PCR #3. Weakness, not feeling well, generalized malaise related to the above #4. Hypertension #5. Hyperlipidemia #6. Angina pectoris #7. Diabetes with diabetic neuropathy #8. Degenerative joint disease #9. Urinary incontinence #10. Multiple other medical problems and comorbidities Plan: No acute events overnight, no worsening shortness of breath, no cough, no chest pain, she remains on room air, she's been afebrile, continues on antibiotics, inflammatory markers are trending down, no nausea vomiting, continue current me dical treatment, continue oral Decadron, follow-up chest x-ray tomorrow, remains stable may consider for discharge in the next 24 hours I performed a history & physical examination of the patient and discussed their management with my nurse practitioner, Funmilayo Jenkins. I reviewed the nurse practitioner's note and agree with the documented findings and plan of care. Lung sounds are positive for diminished breath sounds. The findings and the impression was discussed with the patient. I attest to the documentation by the nurse practitioner. Time with Patient: Less than 30
[2020-07-08 16:39] LABS: Glucose,Whole Blood 300 mg/dL (75-99)
[2020-07-08 21:01] LABS: Glucose,Whole Blood 193 mg/dL (75-99)
[2020-07-08] MEDS: amLODIPine 5 MG TAB PO SCH (21:21)
[2020-07-08] MEDS: INSULIN DETEMIR (LEVEMIR) 100 UNIT/ML SYR SQ SCH (21:21)
[2020-07-08] MEDS: FLUTICASONE 50MCG/SPRAY NASAL 16GM EA NOSTRIL SCH (21:22)
[2020-07-08] MEDS: AZITHROMYCIN 500 MG TAB PO SCH (21:22)
[2020-07-08] MEDS: ASPIRIN 81 MG PO SCH (21:22)
[2020-07-08] MEDS: METOPROLOL TARTRATE 25 MG TAB PO SCH (21:22)
[2020-07-09] MEDS: LOPERAMIDE 2 MG CAP PO PRN (01:51)
--- NOTE | 2020-07-09 03:42 | PN ---
PROGRESS NOTE DATE OF SERVICE: 07/08/2020 REASON FOR FOLLOWUP: Acute COVID-19 pneumonia. INTERVAL HISTORY: The patient is currently afebrile. The patient is breathing more comfortably. The patient did have a cough with occasional sputum. No chest pain. No nausea, no vomiting. No abdominal pain or diarrhea. PHYSICAL EXAMINATION: Blood pressure 114/66, pulse of 92, temperature 98.2. She is 94% on room air. General description is an elderly female lying in bed in no distress. RESPIRATORY SYSTEM: Unlabored breathing, decreased breath sounds at the bases. No wheeze. HEART: S1, S2. Regular rate and rhythm. ABDOMEN: Soft, no tenderness. LABS: CRP 3.0 and D-dimer is 2.54. Nugent PCR came back positive. DIAGNOSTIC IMPRESSION AND PLAN: Patient with acute COVID-19 infection pneumonia. Patient has shown clinical response to the initial therapy of Zithromax, dexamethasone, Lovenox and zinc sulfate to continue. Currently not hypoxic, no need for remdesivir at this point. MMODL / IJN: [id number] /
[2020-07-09] MEDS: SODIUM CHLORIDE 0.9% 1,000 ML IV SCH ×2 (05:45→14:36)
[2020-07-09 07:09] LABS: Glucose,Whole Blood 150 mg/dL (75-99)
[2020-07-09] MEDS: CRANBERRY 300 MG PO SCH (07:44)
[2020-07-09] MEDS: FUROSEMIDE 20 MG TAB PO SCH (07:54)
[2020-07-09] MEDS: INSULIN ASPART (NovoLOG) 100 UNIT/ML VIAL SQ SCH ×4 (07:54→21:02)
[2020-07-09] MEDS: ENOXAPARIN 40 MG/0.4 ML SYRINGE SQ SCH (07:54)
[2020-07-09] MEDS: dexAMETHasone 2 MG TAB PO SCH (07:54)
[2020-07-09] MEDS: GABAPENTIN 300 MG CAP PO SCH ×2 (07:54→20:18)
[2020-07-09] MEDS: CHOLECALCIFEROL 1,000 UNIT TAB PO SCH (07:55)
[2020-07-09] MEDS: MULTIVITAMINS, THERA 1 EACH TAB PO SCH (07:55)
[2020-07-09] MEDS: metFORMIN 500 MG TAB PO SCH ×2 (07:55→20:18)
[2020-07-09] MEDS: ISOSORBIDE MONONITRATE ER 60 MG TAB.ER.24H PO SCH ×2 (07:56→20:18)
[2020-07-09] MEDS: ASCORBIC ACID 500 MG TAB PO SCH (07:56)
[2020-07-09] MEDS: CALCIUM CARB-VIT D 500MG-200UN 1 EACH TAB PO SCH (07:56)
[2020-07-09] MEDS: AZITHROMYCIN 500 MG TAB PO SCH (07:56)
[2020-07-09] MEDS: METOPROLOL TARTRATE 50 MG TAB PO SCH (07:56)
[2020-07-09] MEDS: FERROUS SULFATE 325 MG TAB PO SCH (07:56)
[2020-07-09] MEDS: CLOPIDOGREL 75 MG TAB PO SCH (07:56)
[2020-07-09] MEDS: ZINC SULFATE 220 MG CAP PO SCH (07:57)
--- NOTE | 2020-07-09 08:48 | XR ---
EXAMINATION TYPE: XR chest 1V portable DATE OF EXAM: 07/09/2020 COMPARISON: Prior chest x-ray 07/07/2020 HISTORY: Abnormal chest x-ray, follow-up TECHNIQUE: Single frontal view of the chest is obtained. FINDINGS: There is no significant interval change. IMPRESSION: Stable findings, exam is expiratory and rotated, is elevation of the right hemidiaphragm . Difficult to exclude basilar pneumonia versus atelectasis. Follow-up PA and lateral chest x-ray may be of benefit.
[2020-07-09] MEDS ORDERED: guaiFENesin-Coden 100-10MG/5ML 10 ML CUP PO PRN (09:17)
[2020-07-09 10:51] LABS: Glucose,Whole Blood 142 mg/dL (75-99)
--- NOTE | 2020-07-09 11:49 | P.PN ---
Subjective Progress Note Date: 07/09/20 HISTORY OF PRESENT ILLNESS This is a 74-year-old female patient of Dr. Jacques with past medical history of hypertension, hyperlipidemia, diabetes mellitus type II insulin requiring, generalized osteoarthritis, CAD with prior LA in 1991 and anemia with unknown cause. Patient states that she was diagnosed with colon 3 weeks ago. She denies having any fever, nausea or vomiting. 2 weeks ago she did have diarrhea. She complains of cough with yellow sputum production. No hemoptysis. She denies any shortness of breath. No abdominal pain. She has trace pedal edema. Patient states that she never leaves the home but she did have exposure to cold and when her 's brother and sister came to the home. Her is also been diagnosed with COVID-19 but he has not required any treatment. Patient came into [facility] emergency center for evaluation. She was afebrile, heart rate 95, blood pressure 133/87, pulse ox 95% on room air. WBC 9.1, hemoglobin 8.8, platelet count 451. Lymphocytes 0.7. INR 1.2. Sodium 136, potassium 4.1, chloride 109, CO2 19, creatinine 0.73. Blood sugar 217. Phosphorus 3.3, magnesium 1.8. Total bilirubin 0.4 area ferritin 42.5. AST 62, ALT 32, alkaline phosphatase 73. LDH 536. C-reactive protein 13.1. Troponin negative. TSH or 8. Urinalysis blood positive, leukoesterase large, WBC 16, bacteria occasional. Covid 19 positive. Initial chest x-ray reveals infiltrate and atelectasis right lower lobe. Repeat chest x-ray reveals difficult to exclude basilar pneumonia. Follow-up may be of benefit. [facility] and consult with infectious disease and pulmonary medicine. 07/08: Patient is followed by infectious disease and pulmonary medicine. She denies any new complaints of breathing status has been stable. Denies having any fever or chills. Pulse ox is 92% on room air, afebrile, heart rate 79, blood pressure 144/72. D-dimer is 2.54. LDH decreased 165, C-reactive protein down to 3, pro calcitonin 0.06. Blood sugars are running between 144 and 212. Urine culture is gram-negative bacilli. Blood culture no growth at 24 hours. Anticipate discharge home tomorrow. 07/09: Patient states that she is not ready to go home today. She states she has been up coughing all night and continues to have cough mostly nonproductive. Robitussin with codeine added. She denies shortness of breath and does not require oxygen. Pulse ox is 93% on room air. Blood pressure 136/68, heart rate 60, afebrile. The patient is followed by primary medicine and infectious disease. Anticipate probable discharge tomorrow. REVIEW OF SYSTEMS Constitutional: No fever, no chills, no night sweats. No weight change. No weakness, fatigue or lethargy. EENT: No headache. No blurred vision or double vision, no loss of vision. No loss of Hearing, no ringing in the ears, no dizziness. No nasal drainage or congestion. No epistaxis. No sore throat. Lungs: No shortness of breath, reports continuous cough, reports sputum production. No wheezing. Cardiovascular: No chest pain, no lower extremity edema. No palpitations. No paroxysmal nocturnal dyspnea. No orthopnea. No lightheadedness or dizziness. No syncopal episodes. Abdominal: No abdominal pain. No nausea, vomiting. No diarrhea. No constipation. No bloody or tarry stools. No loss of appetite. Genitourinary: No dysuria, increased frequency, urgency. No urinary retention. Musculoskeletal: No myalgias. No muscle weakness, no gait dysfunction, no frequent falls. No back pain. No neck pain. Integumentary: No wounds, no lesions. No rash or pruritus. Neurologic: No aphasia. No facial droop. No change in mentation. No head injury. No headache. Psychiatric: No depression. No anxiety. Endocrine: No abnormal blood sugars. PHYSICAL EXAMINATION Gen: This is a 74-year-old morbidly obese female. She is resting in bed and appears to be fatigued. Frequent coughing noted. HEENT: Head is atraumatic, normocephalic. Pupils equal, round. Sclerae is anicteric. NECK: Supple. No JVD. No lymphadenopathy. No thyromegaly. LUNGS: Diminished to the base. No intercostal retractions. HEART: Regular rate and rhythm. Systolic murmur. ABDOMEN: Soft. Bowel sounds are present. No masses. No tenderness. No right upper quadrant tenderness. EXTREMITIES: Trace bilateral pedal edema. Right foot drop. NEUROLOGICAL: Patient is awake, alert and oriented x3. Cranial nerves 2 through 12 are grossly intact. ASSESSMENT AND PLAN 1. Bilateral pneumonia, possible Covid pneumonitis. Continue azithromycin. Pulmonary consult, ID consult. 2. Covid pneumonitis. Patient started on vitamin C 500 mg daily, vitamin D 2000 units daily, dexamethasone 6 mg daily, Lovenox 40 mg subcu daily. 3. Urinary tract infection. Continue ceftriaxone. Urine culture and blood culture in progress. 4. History of coronary artery disease and LA in the past. Continue aspirin 81 mg daily, Lipitor 20 mg every 48 hours, Lopressor, Imdur 60 mg twice daily. 5. Hypertension. Continue Lopressor 50 mg in the a.m. and 25 at bedtime, Norvasc 5 mg at bedtime. 6. Hyperlipidemia. Continue atorvastatin. 7. Diabetes mellitus type 2, uncontrolled with hypoglycemia. Continue metformin 1000 mg twice daily, Levemir 18 units at bedtime, NovoLog scale before meals and at bedtime. Hold Actos and scheduled NovoLog. 8. Generalized osteoarthritis. Continue gabapentin, vitamin B12, Celebrex on hold. 9. GI prophylaxis. Pepcid. DISCHARGE PLAN Most likely return home with homecare on . Impression and plan of care have been directed as dictated by the signing physician. Katie James nurse practitioner acting as scribe for signing physician. Objective - Vital Signs Vital signs: Vital Signs Temp 97.2 F L 07/09/20 07:00 Pulse 60 07/09/20 07:00 Resp 21 07/09/20 07:00 BP 136/68 07/09/20 07:00 Pulse Ox 93 L 07/09/20 07:00 Intake & Output 07/08/20 07/09/20 07/09/20 18:59 06:59 18:59 Intake Total 500 200 Output Total 600 600 Balance -100 -400 Intake: Oral 500 200 Output: Urine 600 600 Other: Voiding Method Diaper # Voids 700 # Bowel Movements 1 - Labs CBC & Chem 7: 07/06/20 16:29 07/06/20 16:29 Labs: Abnormal Lab Results - Last 24 Hours (Table) 07/08/20 07/08/20 07/08/20 Range/Units 06:01 11:35 16:37 POC Glucose (mg/dL) 167 H 300 H (75-99) mg/dL C-Reactive Protein 3.0 H (0.0-0.8) mg/dL 07/08/20 07/09/20 Range/Units 21:00 07:08 POC Glucose (mg/dL) 193 H 150 H (75-99) mg/dL C-Reactive Protein (0.0-0.8) mg/dL Microbiology - Last 24 Hours (Table) 07/06/20 17:54 Blood Culture - Preliminary Blood No Growth after 48 hours 07/07/20 10:10 Urine Culture - Preliminary Urine,Clean Catch Gram Neg Bacilli
[2020-07-09] MEDS ORDERED: guaiFENesin SYRUP 100MG/5ML 200 MG/10 ML CUP PO PRN (14:16)
--- NOTE | 2020-07-09 15:53 | P.PN ---
Subjective Progress Note Date: 07/09/20 Principal diagnosis: Covid 19 related pneumonia 74-year-old white female patient that came into the hospital on 2019 for evaluation of weakness and not feeling well, patient apparently tested positive for chronic lumbar is 3 weeks ago, she has multiple medical problems. Her chest x-ray in the emergency department showed possible bibasilar atelectasis, she had lymphopenia with a lymphocyte count of 0.7, her d-dimer is 2.54, sodium is 136, potassium is 4.1, chloride was 109, CO2 was 19, troponin was less than 0.012, CRP was 13.1, and is down to 3.0 on today's labs, pro- calcitonin was negative at 0.06, urinalysis came back positive for large amount of leuks, white blood cells, and occasional bacteria, coronavirus PCR was positive. She remains on room air, her blood pressure is stable, she has been afebrile, she remains on antibiotics, with the azithromycin and Rocephin, Lovenox, she is on daily dose of 6 mg of Decadron, he is on gentle IV hydration. On today's exam she denies any fever or chills, she remains on room air, pulse ox is 92%, hemodynamically patient is stable, her LDH is trending down, pro- calcitonin is negative at 0.06, blood cultures have shown no growth. The patient is seen today 07/09/2020 in follow-up on the regular medical floor. She is awake and alert in no acute distress. Continues with a dry nonproductive cough. Currently maintaining good O2 saturations in the 90s on room air. She's afebrile. Chest x-ray reveals stable findings. Elevation the right hemidiaphragm. Bilateral atelectasis/infiltrate. Urine culture positive for Citrobacter freundii. She is continued on Pepcid, zinc, vitamin C, vitamin D Lovenox, dexamethasone. Objective - Vital Signs Vital signs: Vital Signs Temp 97.8 F 07/09/20 15:00 Pulse 98 07/09/20 15:00 Resp 20 07/09/20 15:00 BP 152/77 07/09/20 15:00 Pulse Ox 98 07/09/20 15:00 Intake & Output 07/08/20 07/09/20 07/09/20 18:59 06:59 18:59 Intake Total 500 200 Output Total 600 600 Balance -100 -400 Intake: Oral 500 200 Output: Urine 600 600 Other: Voiding Method Diaper Diaper # Voids 700 # Bowel Movements 1 - Exam GENERAL EXAM: Alert, very pleasant, 74-year-old female patient, on room air with pulse ox of 98% comfortable in no apparent distress. HEAD: Normocephalic/atraumatic. EYES: Normal reaction of pupils, equal size. Conjunctiva pink, sclera white. NOSE: Clear with pink turbinates. THROAT: No erythema or exudates. NECK: No masses, no JVD, no thyroid enlargement, no adenopathy. CHEST: No chest wall deformity. Symmetrical expansion. LUNGS: Equal air entry with crackles in the posterior bases. CVS: Regular rate and rhythm, normal S1 and S2, no gallops, no murmurs, no rubs ABDOMEN: Soft, nontender. No hepatosplenomegaly, normal bowel sounds, no guarding or rigidity. EXTREMITIES: No clubbing, no edema, no cyanosis, 2+ pulses and upper and lower extremities. MUSCULOSKELETAL: Muscle strength and tone normal. SPINE: No scoliosis or deformity SKIN: No rashes CENTRAL NERVOUS SYSTEM: Alert and oriented -3. No focal deficits, tone is normal in all 4 extremities. PSYCHIATRIC: Alert and oriented -3. Appropriate affect. Intact judgment and insight. - Labs CBC & Chem 7: 07/06/20 16:29 07/06/20 16:29 Labs: Abnormal Lab Results - Last 24 Hours (Table) 07/08/20 07/08/20 07/09/20 Range/Units 16:37 21:00 07:08 POC Glucose (mg/dL) 300 H 193 H 150 H (75-99) mg/dL 07/09/20 Range/Units 10:50 POC Glucose (mg/dL) 142 H (75-99) mg/dL Microbiology - Last 24 Hours (Table) 07/07/20 10:10 Urine Culture - Final Urine,Clean Catch Citrobacter freundii 07/06/20 17:54 Blood Culture - Preliminary Blood No Growth after 48 hours Assessment and Plan Assessment: 1. COVID related 19 related pneumonitis, the chest x-ray showing right lower lobe infiltrate 2. Positive outpatient Covid 19 PCR 3. Weakness, not feeling well, generalized malaise related to the above 4. Hypertension 5. Hyperlipidemia 6. Angina pectoris 7. Diabetes with diabetic neuropathy 8. Degenerative joint disease 9. Urinary incontinence 10. Multiple other medical problems and comorbidities Plan: The patient was seen and evaluated by Dr. Resendiz Chest x-ray and labs reviewed Clear for discharge from the pulmonary standpoint I, the cosigning physician, performed a history & physical examination of the patient. Lungs sounds with faint crackles in the posterior bases. Maintaining good O2 saturations in the 90s on room air. I discussed the assessment and plan of care with my nurse practitioner, Bina Lawson. I attest to the above note as dictated by her.
[2020-07-09 16:46] LABS: Glucose,Whole Blood 310 mg/dL (75-99)
[2020-07-09] MEDS: ATORVASTATIN 20 MG TAB PO SCH (20:18)
[2020-07-09] MEDS: EZETIMIBE 10 MG TAB PO SCH (20:18)
[2020-07-09] MEDS: ASPIRIN 81 MG PO SCH (20:18)
[2020-07-09] MEDS: amLODIPine 5 MG TAB PO SCH (20:18)
[2020-07-09] MEDS: METOPROLOL TARTRATE 25 MG TAB PO SCH (20:18)
[2020-07-09] MEDS: FLUTICASONE 50MCG/SPRAY NASAL 16GM EA NOSTRIL SCH (20:19)
[2020-07-09 20:47] LABS: Glucose,Whole Blood 260 mg/dL (75-99)
[2020-07-09] MEDS: INSULIN DETEMIR (LEVEMIR) 100 UNIT/ML SYR SQ SCH (21:02)
[2020-07-09 21:31] VITALS: RESP 18
--- NOTE | 2020-07-09 22:32 | PN ---
PROGRESS NOTE DATE OF SERVICE: 07/09/2020 REASON FOR FOLLOWUP: Pneumonia. INTERVAL HISTORY: The patient is currently afebrile. The patient is breathing more comfortably, currently on room air. Denies having any chest pain. She did have some cough, moderate intensity, but not bringing up any sputum. No nausea, no vomiting, no abdominal pain or diarrhea. PHYSICAL EXAMINATION: Blood pressure 152/77 with a pulse of 98, temperature 97.8. She is 98% on room air. General description is an elderly female lying in bed in no distress. RESPIRATORY SYSTEM: Unlabored breathing with decreased breath sounds at the base. No wheeze. HEART: S1, S2. Regular rate and rhythm. ABDOMEN: Soft. No tenderness. LABS: Hemoglobin is 8.8, white count 9.1, BUN of 16, creatinine 0.73. Urine with Citrobacter. DIAGNOSTIC IMPRESSION AND PLAN: 1. Patient with pneumonia in this patient who did have a COVID-19 positive, though patient seems to have shown overall clinical improvement with Zithromax, dexamethasone and Lovenox. Monitor clinical course closely. 2. Positive urine culture with Citrobacter, possibly the patient did not have significant no need for antibiotic therapy for the same. MMODL / IJN: [id number] /
[2020-07-10] MEDS: SODIUM CHLORIDE 0.9% 1,000 ML IV SCH (01:47)
[2020-07-10 06:45] LABS: Anisocytosis Slight; HCT 27.4 % (34.0-46.0); HGB 8.3 gm/dL (11.4-16.0); Hypochromasia Marked; MCH 25.1 pg (25.0-35.0); MCHC 30.3 g/dL (31.0-37.0); Mean Platelet Volume 7.3; Platelet Count 552 k/uL (150-450); RDW 17.1 % (11.5-15.5)
[2020-07-10 07:19] LABS: Glucose,Whole Blood 195 mg/dL (75-99)
[2020-07-10] MEDS: CLOPIDOGREL 75 MG TAB PO SCH (08:22)
[2020-07-10] MEDS: MULTIVITAMINS, THERA 1 EACH TAB PO SCH (08:22)
[2020-07-10] MEDS: ISOSORBIDE MONONITRATE ER 60 MG TAB.ER.24H PO SCH (08:22)
[2020-07-10] MEDS: CALCIUM CARB-VIT D 500MG-200UN 1 EACH TAB PO SCH (08:22)
[2020-07-10] MEDS: ASCORBIC ACID 500 MG TAB PO SCH (08:22)
[2020-07-10] MEDS: ENOXAPARIN 40 MG/0.4 ML SYRINGE SQ SCH (08:22)
[2020-07-10] MEDS: METOPROLOL TARTRATE 50 MG TAB PO SCH (08:22)
[2020-07-10] MEDS: FUROSEMIDE 20 MG TAB PO SCH (08:22)
[2020-07-10] MEDS: metFORMIN 500 MG TAB PO SCH (08:22)
[2020-07-10] MEDS: INSULIN ASPART (NovoLOG) 100 UNIT/ML VIAL SQ SCH (08:23)
[2020-07-10] MEDS: FERROUS SULFATE 325 MG TAB PO SCH (08:23)
[2020-07-10] MEDS: GABAPENTIN 300 MG CAP PO SCH (08:23)
[2020-07-10] MEDS: CHOLECALCIFEROL 1,000 UNIT TAB PO SCH (08:24)
[2020-07-10] MEDS: ZINC SULFATE 220 MG CAP PO SCH (08:24)
[2020-07-10] MEDS: dexAMETHasone 2 MG TAB PO SCH (08:24)
[2020-07-10 08:42] VITALS: BP 165/71; PULSE 88; TEMP 97.7
[2020-07-10 10:21] LABS: Albumin 3.6 g/dL (3.80-4.90); Albumin/Globulin Ratio 1.29 (1.60-3.17); Anion Gap 10.2 mmol/L (4.00-12.00); Calcium 8.9 mg/dL (8.7-10.3); Carbon Dioxide 25.8 mmol/L (21.6-31.8); Globulin 2.8 g/dL (1.6-3.3); Non-African American GFR(CKD) 71.6 (60.0-200.0); Potassium 3.7 mmol/L (3.5-5.5); Total Bilirubin 0.3 mg/dL (0.3-1.2); Total Protein 6.4 g/dL (6.2-8.2)
--- NOTE | 2020-07-10 14:08 | P.DS ---
Providers Date of admission: 07/06/20 18:39 Expected date of discharge: 07/10/20 Attending physician: Joshua Sawyer Consults: 07/06/20 18:39 Consult Physician Routine Consulting Provider: Dianne Gaines Consult Reason/Comments: covid Do you want consulting provider notified?: Yes 07/06/20 20:36 Consult Physician Routine Consulting Provider: Zara Paulino Consult Reason/Comments: COVID Do you want consulting provider notified?: Yes Primary care physician: Dariusz WebbGeorgie Layton Hospital Course: HISTORY OF PRESENT ILLNESS This is a 74-year-old female patient of Dr. Jacques with past medical history of hypertension, hyperlipidemia, diabetes mellitus type II insulin requiring, generalized osteoarthritis, CAD with prior LA in 1991 and anemia with unknown cause. Patient states that she was diagnosed with colon 3 weeks ago. She denies having any fever, nausea or vomiting. 2 weeks ago she did have diarrhea. She complains of cough with yellow sputum production. No hemoptysis. She denies any shortness of breath. No abdominal pain. She has trace pedal edema. Patient states that she never leaves the home but she did have exposure to cold and when her 's brother and sister came to the home. Her is also been diagnosed with COVID-19 but he has not required any treatment. Patient came into [facility] emergency center for evaluation. She was afebrile, heart rate 95, blood pressure 133/87, pulse ox 95% on room air. WBC 9.1, hemoglobin 8.8, platelet count 451. Lymphocytes 0.7. INR 1.2. Sodium 136, potassium 4.1, chloride 109, CO2 19, creatinine 0.73. Blood sugar 217. Phosphorus 3.3, magnesium 1.8. Total bilirubin 0.4 area ferritin 42.5. AST 62, ALT 32, alkaline phosphatase 73. LDH 536. C-reactive protein 13.1. Troponin negative. TSH or 8. Urinalysis blood positive, leukoesterase large, WBC 16, bacteria occasional. Covid 19 positive. Initial chest x-ray reveals infiltrate and atelectasis right lower lobe. Repeat chest x-ray reveals difficult to exclude basilar pneumonia. Follow-up may be of benefit. Patient was admitted to the [facility] floor and consult with infectious disease and pulmonary medicine. 07/08: Patient is followed by infectious disease and pulmonary medicine. She denies any new complaints of breathing status has been stable. Denies having any fever or chills. Pulse ox is 92% on room air, afebrile, heart rate 79, blood pressure 144/72. D-dimer is 2.54. LDH decreased 165, C-reactive protein down to 3, pro calcitonin 0.06. Blood sugars are running between 144 and 212. Urine culture is gram-negative bacilli. Blood culture no growth at 24 hours. Anticipate discharge home tomorrow. 07/09: Patient states that she is not ready to go home today. She states she has been up coughing all night and continues to have cough mostly nonproductive. Robitussin with codeine added. She denies shortness of breath and does not require oxygen. Pulse ox is 93% on room air. Blood pressure 136/68, heart rate 60, afebrile. The patient is followed by primary medicine and infectious disease. Anticipate probable discharge tomorrow. 07/10: Patient's breathing status is stable. She denies shortness of breath today. Cough is improved. She has been cleared by pulmonary medicine for discharge. Repeat blood work reveals WBC 11, hemoglobin 8.3, platelet count 552. Electrolytes and renal function normal. Blood sugars are elevated secondary to steroids. She has been afebrile, heart rate 88, blood pressure 165/71, pulse ox 96% on room air. Patient will be discharged home today in stable condition. ASSESSMENT AND PLAN 1. Bilateral pneumonia, possible Covid pneumonitis. 2. Covid pneumonitis. 3. Urinary tract infection. 4. History of coronary artery disease and LA in the past. 5. Hypertension. 6. Hyperlipidemia. 7. Diabetes mellitus type 2, uncontrolled with hypoglycemia. 8. Generalized osteoarthritis. DISCHARGE PLAN Most likely return home with homecare on . Impression and plan of care have been directed as dictated by the signing physician. Katie James nurse practitioner acting as scribe for signing physician. Patient Condition at Discharge: Good Plan - Discharge Summary Discharge Rx Participant: No New Discharge Prescriptions: New Dexamethasone 6 mg PO DAILY #5 tablet Zinc Sulfate [Orazinc] 220 mg PO DAILY cap guaiFENesin SYRUP 100MG/5ML [Robitussin] 200 mg PO Q6H PRN ml PRN Reason: Cough Azithromycin [Zithromax] 500 mg PO HS #4 tab Continue Gabapentin 300 mg PO BID Ezetimibe [Zetia] 10 mg PO Q48H amLODIPine [Norvasc] 5 mg PO HS Pioglitazone HCl [Actos] 15 mg PO DAILY Isosorbide Mononitrate ER [Imdur] 60 mg PO BID PRN PRN Reason: chest pain Atorvastatin Calcium [Lipitor] 20 mg PO Q48H Aspirin 81 mg PO HS Ascorbic Acid [Vitamin C] 500 mg PO DAILY Clopidogrel Bisulfate [Plavix] 75 mg PO DAILY Insulin Glargine [Lantus] 18 unit SQ HS Calcium Carb-Vit D 500Mg-200Un [Oscal 500+D] 1 tab PO DAILY INSULIN LISPRO (humaLOG) [humaLOG] See Protocol SQ AC-TID PRN PRN Reason: high blood sugar INSULIN LISPRO (humaLOG) [humaLOG] 9 units SQ BID@0900,1800 Multivitamins, Thera [Multivitamin (formulary)] 1 tab PO DAILY Celecoxib [CeleBREX] 200 mg PO BID traMADol HCL 50 mg PO TID PRN PRN Reason: Pain Ibuprofen [Motrin] 800 mg PO Q8H PRN PRN Reason: Pain Furosemide [Lasix] 20 mg PO DAILY Cranberry Concentrate 300mg 2 tab PO DAILY Ergocalciferol [Vitamin D2 (DRISDOL)] 50,000 unit PO TU metFORMIN HCL [Glucophage] 1,000 mg PO BID Ferrous Sulfate [Iron (65 MG Elemental)] 325 mg PO DAILY Nitroglycerin Sl Tabs [Nitrostat] 0.4 mg SUBLINGUAL Q5M PRN #25 tab PRN Reason: Chest Pain Metoprolol Tartrate [Lopressor] 25 mg PO HS #0 Metoprolol Tartrate [Lopressor] 50 mg PO QAM #0 INSULIN LISPRO (humaLOG) [humaLOG] 8 units SQ AC-LUNCH Fluticasone Nasal [place] [Flonase Nasal [place]] 2 spr EA NOSTRIL HS Loperamide HCl [Imodium A-D] 2 mg PO TID PRN PRN Reason: Diarrhea Acetaminophen Tab [Tylenol] 1,000 mg PO Q6HR PRN PRN Reason: Pain Or Fever > 100.5 predniSONE 10 mg PO DAILY #0 Discharge Medication List Ascorbic Acid [Vitamin C] 500 mg PO DAILY 08/21/15 [History] Aspirin 81 mg PO HS 08/21/15 [History] Atorvastatin Calcium [Lipitor] 20 mg PO Q48H 08/21/15 [History] Clopidogrel Bisulfate [Plavix] 75 mg PO DAILY 08/21/15 [History] Ezetimibe [Zetia] 10 mg PO Q48H 08/21/15 [History] Gabapentin 300 mg PO BID 08/21/15 [History] Isosorbide Mononitrate ER [Imdur] 60 mg PO BID PRN 08/21/15 [History] Pioglitazone HCl [Actos] 15 mg PO DAILY 08/21/15 [History] amLODIPine [Norvasc] 5 mg PO HS 08/21/15 [History] Calcium Carb-Vit D 500Mg-200Un [Oscal 500+D] 1 tab PO DAILY 06/01/16 [History] INSULIN LISPRO (humaLOG) [humaLOG] 9 units SQ BID@0900,1800 06/01/16 [History] INSULIN LISPRO (humaLOG) [humaLOG] See Protocol SQ AC-TID PRN 06/01/16 [History] Insulin Glargine [Lantus] 18 unit SQ HS 06/01/16 [History] Multivitamins, Thera [Multivitamin (formulary)] 1 tab PO DAILY 11/17/16 [History] Celecoxib [CeleBREX] 200 mg PO BID 11/04/19 [History] Cranberry Concentrate 300mg 2 tab PO DAILY 11/04/19 [History] Ergocalciferol [Vitamin D2 (DRISDOL)] 50,000 unit PO TU 11/04/19 [History] Ferrous Sulfate [Iron (65 MG Elemental)] 325 mg PO DAILY 11/04/19 [History] Furosemide [Lasix] 20 mg PO DAILY 11/04/19 [History] Ibuprofen [Motrin] 800 mg PO Q8H PRN 11/04/19 [History] metFORMIN HCL [Glucophage] 1,000 mg PO BID 11/04/19 [History] traMADol HCL 50 mg PO TID PRN 11/04/19 [History] Metoprolol Tartrate [Lopressor] 25 mg PO HS #0 11/06/19 [Rx] Metoprolol Tartrate [Lopressor] 50 mg PO QAM #0 11/06/19 [Rx] Nitroglycerin Sl Tabs [Nitrostat] 0.4 mg SUBLINGUAL Q5M PRN #25 tab 11/06/19 [Rx] Acetaminophen Tab [Tylenol] 1,000 mg PO Q6HR PRN 07/06/20 [History] Fluticasone Nasal [place] [Flonase Nasal [place]] 2 spr EA NOSTRIL HS 07/06/20 [History] INSULIN LISPRO (humaLOG) [humaLOG] 8 units SQ AC-LUNCH 07/06/20 [History] Loperamide HCl [Imodium A-D] 2 mg PO TID PRN 07/06/20 [History] Azithromycin [Zithromax] 500 mg PO HS #4 tab 07/10/20 [Rx] Dexamethasone 6 mg PO DAILY #5 tablet 07/10/20 [Rx] Zinc Sulfate [Orazinc] 220 mg PO DAILY cap 07/10/20 [Rx] guaiFENesin SYRUP 100MG/5ML [Robitussin] 200 mg PO Q6H PRN ml 07/10/20 [Rx] predniSONE 10 mg PO DAILY #0 07/10/20 [Rx] Follow up Appointment(s)/Referral(s): [facility], [NON-STAFF] - Dariusz Jacques DO [Primary Care Provider] - 1 Week (Office will call you with your appointment details. Thank you.) Patient Instructions/Handouts: Pneumonia (DC) Discharge Disposition: HOME WITH HOME HEALTH SERVICES
--- NOTE | 2020-07-10 16:34 | PN ---
PROGRESS NOTE PULMONARY/CRITICAL CARE PROGRESS NOTE: DATE OF SERVICE: 07/10/2020 The patient seems to be resting comfortably. Today is July 10, 2020. There is a chance she may go home today. She denies any respiratory distress. She is not wearing any supplemental oxygen. She has a dry nonproductive cough. Saturations are excellent on room air. The patient is on appropriate medications including Pepcid, zinc, vitamin C, vitamin D, Lovenox and Decadron. Urinary tract suggested a bladder infection secondary to Citrobacter freundii. She is being treated for that. Current vital signs are reviewed, temperature is 97.7, heart rate 88, respiratory rate 18, blood pressure 165/71 mean 102, room air saturation is 96%. She appears in no acute distress. HEENT: Examination is grossly unremarkable. NECK: Supple, full range of motion. No adenopathy. Neck veins are flat. CARDIOVASCULAR: Examination reveals regular rhythm and rate. LUNGS: Clear, breath sounds equal. ABDOMEN: Soft, bowel sounds are heard. EXTREMITIES: Intact. No cyanosis, clubbing, or edema. SKIN: Without rash. NEUROLOGIC: Examination is nonfocal. LABS: Reviewed. White count 11, hemoglobin 8.3, hematocrit 27.4, platelet count 552,000. Sodium 138, potassium 3.7, chloride 102, CO2 is 25.8, anion gap is 10.2, BUN and creatinine were 24 and 0.8. The rest of the comprehensive metabolic profile looks okay. Microbiologic studies reveal Citrobacter freundii infection in the urine from July 07, 2020. No recent chest x-rays to report. The chest x-ray from July 09, 2020 shows stable findings, with elevation of the right hemidiaphragm and some bibasilar atelectasis or infiltrate. Medications are reviewed. ASSESSMENT: 1. COVID-19 related pneumonitis, stable. 2. Positive outpatient COVID-19 by PCR. 3. Generalized malaise, weakness and muscle aches, secondary to COVID-19 infection. 4. Citrobacter freundii urinary tract infection. 5. Hypertension. 6. Hyperlipidemia. 7. Angina pectoris. 8. Diabetes with diabetic neuropathy. 9. Degenerative joint disease. 10.Urinary incontinence. PLAN: The patient is doing well. Will likely be discharged today. Additional recommendations are made. Will follow as needed. MMODL / IJN: [id number] /
== END 2020-07-10 12:34 | disposition home health service (06) | DRG 177 ==
LOC: EC 16:03 → 4SSUR 18:39
PROVIDERS: ADMIT Internal Medicine Geriatric Medicine; ATTEND Internal Medicine Geriatric Medicine
DX: U07.1 COVID-19 (principal); J12.89 Other viral pneumonia; J98.11 Atelectasis; N39.0 Urinary tract infection, site not specified; Z68.42 Body mass index [BMI] 45.0-49.9, adult; Z96.643 Presence of artificial hip joint, bilateral; T38.0X5A Adverse effect of glucocorticoids and synthetic analogues, initial encounter; I10 Essential (primary) hypertension; H91.90 Unspecified hearing loss, unspecified ear; E78.5 Hyperlipidemia, unspecified; M15.9 Polyosteoarthritis, unspecified; E66.01 Morbid (severe) obesity due to excess calories; E11.649 Type 2 diabetes mellitus with hypoglycemia without coma; E11.40 Type 2 diabetes mellitus with diabetic neuropathy, unspecified; B96.89 Other specified bacterial agents as the cause of diseases classified elsewhere; R32 Unspecified urinary incontinence; I25.119 Atherosclerotic heart disease of native coronary artery with unspecified angina pectoris; Z79.4 Long term (current) use of insulin; Z79.899 Other long term (current) drug therapy; Z79.82 Long term (current) use of aspirin; Z79.1 Long term (current) use of non-steroidal anti-inflammatories (NSAID); Z79.02 Long term (current) use of antithrombotics/antiplatelets; Z88.1 Allergy status to other antibiotic agents; Z88.5 Allergy status to narcotic agent; Z88.0 Allergy status to penicillin; Z88.8 Allergy status to other drugs, medicaments and biological substances; Z90.710 Acquired absence of both cervix and uterus; Z90.49 Acquired absence of other specified parts of digestive tract; Z87.891 Personal history of nicotine dependence; Z83.3 Family history of diabetes mellitus; Z82.49 Family history of ischemic heart disease and other diseases of the circulatory system; Z82.3 Family history of stroke; Z80.3 Family history of malignant neoplasm of breast; Z98.890 Other specified postprocedural states; Z90.89 Acquired absence of other organs; I25.2 Old myocardial infarction
CPT/HCPCS: 36415; 71045; 80053; 81001; 82550; 82728; 83605; 83615; 83735; 84100; 84145; 84443; 84484; 85025; 85027; 85379; 85610; 85730; 86140; 87040; 87077; 87086; 87186; 87635; 93005; 96361; 96365; 96375; 99285

== ENCOUNTER 2020-09-09 02:49 | Inpatient (IN) | payer MEDICARE ==
--- NOTE | 2020-09-09 03:33 | ED ---
Recheck HPI - General Chief Complaint: Recheck/Abnormal Lab/Rx Stated Complaint: Low hemoglobin Time Seen by Provider: 09/09/20 02:53 Source: patient, EMS, RN notes reviewed, old records reviewed Mode of arrival: EMS Limitations: no limitations - History of Present Illness Initial Comments: This is a 74 female to the ED who c.o weakness and fatigue, patient really presents for being called tonight for low hemoglobin. Patient still reviewed Was 5.6-5.8 which she can't precisely remember. Physical to some increasing weakness that his been bothering her for quite some time she has had hemoglobin 8 before but never this low patient has no nausea vomiting or diarrhea. Denies any blood loss, no black stools. Patient is not on blood thinners. No history of GI bleed. MD Complaint: abnormal lab (low Hb) -: unknown Initial Visit For: other (normal checkUp) Returns Today for: Called Because of Abnormal Lab/Test Symptoms Since Prior Visit: no new symptoms (increased weakness) Context: called for abnormal lab result Associated Symptoms: malaise Treatments Prior to Arrival: other (none) - Related Data Home Medications Medication Instructions Recorded Confirmed Ascorbic Acid [Vitamin C] 500 mg PO DAILY 08/21/15 07/06/20 Aspirin 81 mg PO HS 08/21/15 07/06/20 Atorvastatin Calcium [Lipitor] 20 mg PO Q48H 08/21/15 07/06/20 Clopidogrel Bisulfate [Plavix] 75 mg PO DAILY 08/21/15 07/06/20 Ezetimibe [Zetia] 10 mg PO Q48H 08/21/15 07/06/20 Gabapentin 300 mg PO BID 08/21/15 07/06/20 Isosorbide Mononitrate ER [Imdur] 60 mg PO BID PRN 08/21/15 07/06/20 Pioglitazone HCl [Actos] 15 mg PO DAILY 08/21/15 07/06/20 amLODIPine [Norvasc] 5 mg PO HS 08/21/15 07/06/20 Calcium Carb-Vit D 500Mg-200Un 1 tab PO DAILY 06/01/16 07/06/20 [Oscal 500+D] INSULIN LISPRO (humaLOG) [humaLOG] 9 units SQ BID@0900,1800 06/01/16 07/06/20 INSULIN LISPRO (humaLOG) [humaLOG] See Protocol SQ AC-TID PRN 06/01/16 07/06/20 Insulin Glargine [Lantus] 18 unit SQ HS 06/01/16 07/06/20 Multivitamins, Thera [Multivitamin 1 tab PO DAILY 11/17/16 07/06/20 (formulary)] Celecoxib [CeleBREX] 200 mg PO BID 11/04/19 07/06/20 Cranberry Concentrate 300mg 2 tab PO DAILY 11/04/19 07/06/20 Ergocalciferol [Vitamin D2 50,000 unit PO TU 11/04/19 07/06/20 (DRISDOL)] Ferrous Sulfate [Iron (65 MG 325 mg PO DAILY 11/04/19 07/06/20 Elemental)] Furosemide [Lasix] 20 mg PO DAILY 11/04/19 07/06/20 Ibuprofen [Motrin] 800 mg PO Q8H PRN 11/04/19 07/06/20 metFORMIN HCL [Glucophage] 1,000 mg PO BID 11/04/19 07/06/20 traMADol HCL 50 mg PO TID PRN 11/04/19 07/06/20 Acetaminophen Tab [Tylenol] 1,000 mg PO Q6HR PRN 07/06/20 07/06/20 Fluticasone Nasal [place] [Flonase 2 spr EA NOSTRIL HS 07/06/20 07/06/20 Nasal [place]] INSULIN LISPRO (humaLOG) [humaLOG] 8 units SQ AC-LUNCH 07/06/20 07/06/20 Loperamide HCl [Imodium A-D] 2 mg PO TID PRN 07/06/20 07/06/20 Previous Rx's Medication Instructions Recorded Metoprolol Tartrate [Lopressor] 25 mg PO HS #0 11/06/19 Metoprolol Tartrate [Lopressor] 50 mg PO QAM #0 11/06/19 Nitroglycerin Sl Tabs [Nitrostat] 0.4 mg SUBLINGUAL Q5M PRN #25 tab 11/06/19 Azithromycin [Zithromax] 500 mg PO HS #4 tab 07/10/20 Dexamethasone 6 mg PO DAILY #5 tablet 07/10/20 Zinc Sulfate [Orazinc] 220 mg PO DAILY cap 07/10/20 guaiFENesin SYRUP 100MG/5ML 200 mg PO Q6H PRN ml 07/10/20 [Robitussin] predniSONE 10 mg PO DAILY #0 07/10/20 Allergies Allergy/AdvReac Type Severity Reaction Status Date / Time acetaminophen [From [facility]] Allergy Severe Diarrhea Verified 09/09/20 03:02 hydrocodone [From [facility]] Allergy Severe Diarrhea Verified 09/09/20 03:02 meloxicam [From Mobic] Allergy Diarrhea Verified 09/09/20 03:02 Penicillins Allergy Rash/Hives Verified 09/09/20 03:02 tobramycin Allergy Rash/Hives Verified 09/09/20 03:02 Review of Systems ROS Statement: Those systems with pertinent positive or pertinent negative responses have been documented in the HPI. ROS Other: All systems not noted in ROS Statement are negative. Past Medical History Past Medical History: Chest Pain / Angina, Diabetes Mellitus, Hearing Disorder / Deafness, Hyperlipidemia, Hypertension, Myocardial Infarction (MD), Osteoarthritis (OA) Additional Past Medical History / Comment(s): power chair- ambulates only a few feet, swelling of lower leg comes and goes, urinary leakage , neuropathy Last Myocardial Infarction Date:: 1991 History of Any Multi-Drug Resistant Organisms: None Reported Past Surgical History: Appendectomy, Heart Catheterization, Hysterectomy, Orthopedic Surgery, Tonsillectomy Additional Past Surgical History / Comment(s): ki hip replacements, hemorrhoidectomy Past Anesthesia/Blood Transfusion Reactions: Postoperative Nausea & Vomiting (PONV) Past Psychological History: No Psychological Hx Reported Smoking Status: Never smoker Past Alcohol Use History: None Reported Past Drug Use History: None Reported - Past Family History Father Family Medical History: Myocardial Infarction (MD) Mother Family Medical History: CVA/TIA, Diabetes Mellitus Sister(s) Family Medical History: Cancer General Exam Limitations: no limitations General appearance: alert, in no apparent distress, anxious, lethargic, other (cachectic) Head exam: Present: atraumatic, normocephalic, normal inspection Eye exam: Present: normal appearance, PERRL, EOMI. Absent: scleral icterus, conjunctival injection, periorbital swelling ENT exam: Present: normal exam, mucous membranes moist Neck exam: Present: normal inspection. Absent: tenderness, meningismus, lym phadenopathy Respiratory exam: Present: normal lung sounds bilaterally. Absent: respiratory distress, wheezes, rales, rhonchi, stridor Cardiovascular Exam: Present: regular rate, normal rhythm, normal heart sounds. Absent: systolic murmur, diastolic murmur, rubs, gallop, clicks GI/Abdominal exam: Present: soft, normal bowel sounds. Absent: distended, tenderness, guarding, rebound, rigid Extremities exam: Present: normal inspection, full ROM, normal capillary refill. Absent: tenderness, pedal edema, joint swelling, calf tenderness Back exam: Present: normal inspection Neurological exam: Present: alert, oriented X3, CN II-XII intact Psychiatric exam: Present: normal affect, normal mood Skin exam: Present: warm, dry, intact, normal color. Absent: rash Course Vital Signs 09/09/20 02:51 Temperature 97.7 F Pulse Rate 96 Respiratory 16 Rate Blood Pressure 109/47 O2 Sat by Pulse 99 Oximetry - Reevaluation(s) Reevaluation #1: 09/09/20 05:11 Medical records reviewed Reevaluation #2: 09/09/20 05:11 She still feels a little bit weak Reevaluation #3: 09/09/20 05:11 Patient informed of results questions answered here in the ER - Consultations Consultation #1: Spoke with Dr. Sawyer who agrees to admit this patient Medical Decision Making - Lab Data Result diagrams: 09/09/20 03:56 09/09/20 03:56 Lab Results 09/09/20 09/09/20 09/09/20 Range/Units 03:56 03:56 03:56 WBC 10.1 (3.8-10.6) k/uL RBC 2.62 L (3.80-5.40) m/uL Hgb 6.4 L* D (11.4-16.0) gm/dL Hct 21.3 L (34.0-46.0) % MCV 81.2 (80.0-100.0) fL MCH 24.3 L (25.0-35.0) pg MCHC 30.0 L (31.0-37.0) g/dL RDW 17.4 H (11.5-15.5) % Plt Count 537 H (150-450) k/uL MPV 7.6 Neutrophils % 69 % Lymphocytes % 17 % Monocytes % 6 % Eosinophils % 6 % Basophils % 1 % Neutrophils # 7.0 (1.3-7.7) k/uL Lymphocytes # 1.7 (1.0-4.8) k/uL Monocytes # 0.6 (0-1.0) k/uL Eosinophils # 0.6 (0-0.7) k/uL Basophils # 0.1 (0-0.2) k/uL Hypochromasia Marked Poikilocytosis Slight Anisocytosis Slight PT 10.7 (9.0-12.0) sec INR 1.0 (<1.2) APTT 22.5 (22.0-30.0) sec Sodium 135 L (137-145) mmol/L Potassium 5.0 (3.5-5.1) mmol/L Chloride 108 H (98-107) mmol/L Carbon Dioxide 21 L (22-30) mmol/L Anion Gap 6 mmol/L BUN 30 H (7-17) mg/dL Creatinine 0.86 (0.52-1.04) mg/dL Est GFR (CKD-EPI)AfAm 77 (>60 ml/min/1.73 sqM) Est GFR (CKD-EPI)NonAf 66 (>60 ml/min/1.73 sqM) Glucose 87 (74-99) mg/dL Calcium 8.4 (8.4-10.2) mg/dL Magnesium 1.9 (1.6-2.3) mg/dL Total Bilirubin 0.5 (0.2-1.3) mg/dL AST 36 (14-36) U/L ALT 16 (4-34) U/L Alkaline Phosphatase 56 (38-126) U/L Total Protein 6.6 (6.3-8.2) g/dL Albumin 2.9 L (3.5-5.0) g/dL Blood Type Blood Type Recheck Bld Type Recheck Status Antibody Screen Crossmatch Spec Expiration Date 09/09/20 Range/Units 04:00 WBC (3.8-10.6) k/uL RBC (3.80-5.40) m/uL Hgb (11.4-16.0) gm/dL Hct (34.0-46.0) % MCV (80.0-100.0) fL MCH (25.0-35.0) pg MCHC (31.0-37.0) g/dL RDW (11.5-15.5) % Plt Count (150-450) k/uL MPV Neutrophils % % Lymphocytes % % Monocytes % % Eosinophils % % Basophils % % Neutrophils # (1.3-7.7) k/uL Lymphocytes # (1.0-4.8) k/uL Monocytes # (0-1.0) k/uL Eosinophils # (0-0.7) k/uL Basophils # (0-0.2) k/uL Hypochromasia Poikilocytosis Anisocytosis PT (9.0-12.0) sec INR (<1.2) APTT (22.0-30.0) sec Sodium (137-145) mmol/L Potassium (3.5-5.1) mmol/L Chloride (98-107) mmol/L Carbon Dioxide (22-30) mmol/L Anion Gap mmol/L BUN (7-17) mg/dL Creatinine (0.52-1.04) mg/dL Est GFR (CKD-EPI)AfAm (>60 ml/min/1.73 sqM) Est GFR (CKD-EPI)NonAf (>60 ml/min/1.73 sqM) Glucose (74-99) mg/dL Calcium (8.4-10.2) mg/dL Magnesium (1.6-2.3) mg/dL Total Bilirubin (0.2-1.3) mg/dL AST (14-36) U/L ALT (4-34) U/L Alkaline Phosphatase (38-126) U/L Total Protein (6.3-8.2) g/dL Albumin (3.5-5.0) g/dL Blood Type A Positive Blood Type Recheck A Pos Bld Type Recheck Status No Antibody Screen NEGATIVE Crossmatch See Detail Spec Expiration Date 09/12/20202299 Critical Care Time Critical Care Time: Yes Total Critical Care Time: 31 Disposition Clinical Impression: Anemia, Weakness, Morbid obesity Disposition: ADMITTED IP TO THIS [facility] Condition: Serious Is patient prescribed a controlled substance at d/c from ED?: No Referrals: Dariusz Jacques DO [Primary Care Provider] - 1-2 days
[2020-09-09 04:09] LABS: Anisocytosis Slight; Basophils # (A) 0.1 k/uL (0-0.2); Basophils % (A) 1 %; Eosinophils # (A) 0.6 k/uL (0-0.7); Eosinophils % (A) 6 %; HCT 21.3 % (34.0-46.0); Hypochromasia Marked; Lymphocytes # (A) 1.7 k/uL (1.0-4.8); Lymphocytes % (A) 17 %; MCH 24.3 pg (25.0-35.0); MCV 81.2 fL (80.0-100.0); Mean Platelet Volume 7.6; Monocytes # (A) 0.6 k/uL (0-1.0); Monocytes % (A) 6 %; Neutrophils % (A) 69 %; Platelet Count 537 k/uL (150-450); Poikilocytosis Slight; RBC 2.62 m/uL (3.80-5.40); RDW 17.4 % (11.5-15.5); WBC 10.1 k/uL (3.8-10.6)
[2020-09-09 04:25] LABS: Albumin 2.9 g/dL (3.5-5.0); Calcium 8.4 mg/dL (8.4-10.2); Magnesium 1.9 mg/dL (1.6-2.3); Total Bilirubin 0.5 mg/dL (0.2-1.3); Total Protein 6.6 g/dL (6.3-8.2)
[2020-09-09 04:26] LABS: Partial Thromboplastin Time 22.5 sec (22.0-30.0); Prothrombin Time 10.7 sec (9.0-12.0)
[2020-09-09 04:28] LABS: HGB 6.4 gm/dL (11.4-16.0)
[2020-09-09] MEDS ORDERED: NALOXONE 0.4 MG/ML 1 ML VIAL IV PRN (04:59)
[2020-09-09] MEDS ORDERED: ONDANSETRON 4 MG/2 ML VIAL IVP PRN (04:59)
[2020-09-09 10:22] LABS: Reticulocyte % 3.1 % (0.5-2.0)
[2020-09-09] MEDS ORDERED: NITROGLYCERIN SL TABS 0.4 MG TAB SUBLINGUAL PRN (12:27)
--- NOTE | 2020-09-09 12:38 | P.HPIM ---
History of Present Illness H&P Date: 09/09/20 Chief Complaint: Anemia HISTORY OF PRESENT ILLNESS This is a 74-year-old female patient of Dr. Jacques recently established with Dr. Yeboah with past medical history of hypertension, hyperlipidemia, diabetes mellitus type II insulin requiring, generalized osteoarthritis, CAD with prior NV in 1991 and anemia with unknown cause. Patient was last hospitalized for Covid pneumonia and UTI. Patient states that she was doing well recently except she is mostly wheelchair/bed bound. She has decubitus ulcers to the coccyx. Patient states that she has diarrhea but denies any black stools. Her primary care doctor increased her iron this weekend to twice daily. She had blood work done as an outpatient and was contacted regarding a hemoglobin of 5.9 instructed to come in the hospital. Patient states she has never had a colonoscopy. Patient came into [facility] emergency center for evaluation. She was afebrile, heart rate 96, blood pressure 109/47, pulse ox 99% on room air. WBC 10.1, hemoglobin 6.4, platelet count 537. Reticulocyte count 3.1. INR 1. Sodium 135, potassium 5, chloride 108, CO2 21, BUN 30, creatinine 0.86. Liver function tests normal. Transfusion was ordered and patient admitted to the cardiac stepdown unit and consult requested with GI. Also consult in place for Wound Center evaluation. REVIEW OF SYSTEMS Constitutional: No fever, no chills, no night sweats. No weight change. Reports chronic weakness, reports fatigue. No daytime sleepiness. EENT: No headache. No blurred vision or double vision, no loss of vision. No loss of Hearing, no ringing in the ears, no dizziness. No nasal drainage or congestion. No epistaxis. No sore throat. Lungs: No shortness of breath, reports cough, reports sputum production. No wheezing. Cardiovascular: No chest pain, no lower extremity edema. No palpitations. No paroxysmal nocturnal dyspnea. No orthopnea. No lightheadedness or dizziness. No syncopal episodes. Abdominal: No abdominal pain. No nausea, vomiting. No diarrhea. No constipation. No bloody or tarry stools. Denies BRBR. No loss of appetite. Genitourinary: No dysuria, increased frequency, urgency. No urinary retention. Musculoskeletal: No myalgias. No muscle weakness, no gait dysfunction, no frequent falls. No back pain. No neck pain. Integumentary: No wounds, no lesions. No rash or pruritus. Neurologic: No aphasia. No facial droop. No change in mentation. No head injury. No headache. Psychiatric: No depression. No anxiety. Endocrine: No abnormal blood sugars. SOCIAL HISTORY Patient smoked for 29 years 1 pack per day and quit in 1991. She denies any alcohol use, marijuana use or illicit drug use. She has an inhaler which she uses rarely. No CPAP, nebulizer oxygen at home. She lives at home with her and daughter is currently living with them. Patient uses a power chair and usually sleeps in a lift chair. She is able to ambulate with a walker for very short distances. FAMILY HISTORY Mother at age 71 from a stroke. Father at age 64 from a myocardial infarction. Patient had one half sister that of breast cancer. She does not have any brothers. Patient has 2 children with no major medical problems.. PHYSICAL EXAMINATION Gen: This is a 74-year-old morbidly obese female. She is resting in bed and appears to be comfortable and in no acute distress. HEENT: Head is atraumatic, normocephalic. Pupils equal, round. Sclerae is anicteric. NECK: Supple. No JVD. No lymphadenopathy. No thyromegaly. LUNGS: Diminished to the base. No intercostal retractions. HEART: Regular rate and rhythm. Systolic murmur. ABDOMEN: Soft. Bowel sounds are present. No masses. No tenderness. No abdominal tenderness. COCCYX: 2 x 2 second degree pressure ulcer on the right and 1 x 2 on the left. Please see nursing documentation for details EXTREMITIES: Trace bilateral pedal edema. Right foot drop. NEUROLOGICAL: Patient is awake, alert and oriented x3. Cranial nerves 2 through 12 are grossly intact. ASSESSMENT AND PLAN 1. Severe anemia of unclear etiology. No obvious signs of bleeding. Consult with GI appreciated. Patient scheduled for EGD and colonoscopy tomorrow. Patient ordered for transfusion of 2 units packed RBCs, monitor hemoglobin closely. Iron studies ordered. 2. Recent hospitalization for Covid pneumonitis. Stable. 3. Decubitus ulcer coccyx, present on admission. Wound care consult. 4. History of coronary artery disease and NV in the past. Hold aspirin 81 mg daily, continue Lipitor 20 mg every 48 hours, Lopressor, Imdur 60 mg twice daily. 5. Hypertension. Continue Lopressor 75 mg daily, Norvasc 5 mg at bedtime on hold. 6. Hyperlipidemia. Continue atorvastatin. 7. Diabetes mellitus type 2. Hold metformin 1000 mg twice daily and Actos. Continue Levemir 10 units at bedtime and NovoLog scale. 8. Generalized osteoarthritis. Continue gabapentin, vitamin B12. 9. GI prophylaxis. Protonix 40 mg IV daily. Patient will be admitted to the hospital for a minimum of 2 night stay. DISCHARGE PLAN Most likely return home with homecare. Impression and plan of care have been directed as dictated by the signing physician. Katie James nurse practitioner acting as scribe for signing physician. Past Medical History Past Medical History: Chest Pain / Angina, Diabetes Mellitus, Hearing Disorder / Deafness, Hyperlipidemia, Hypertension, Myocardial Infarction ([place]), Osteoarthritis (OA) Additional Past Medical History / Comment(s): power chair- ambulates only a few feet, swelling of lower leg comes and goes, urinary leakage , neuropathy Last Myocardial Infarction Date:: 1991 History of Any Multi-Drug Resistant Organisms: None Reported Past Surgical History: Appendectomy, Heart Catheterization, Hysterectomy, Orthopedic Surgery, Tonsillectomy Additional Past Surgical History / Comment(s): ki hip replacements, hemorrhoidectomy Past Anesthesia/Blood Transfusion Reactions: Postoperative Nausea & Vomiting (PONV) Past Psychological History: No Psychological Hx Reported Smoking Status: Never smoker Past Alcohol Use History: None Reported Past Drug Use History: None Reported - Past Family History Father Family Medical History: Myocardial Infarction ([place]) Mother Family Medical History: CVA/TIA, Diabetes Mellitus Sister(s) Family Medical History: Cancer Medications and Allergies Home Medications Medication Instructions Recorded Confirmed Type Ascorbic Acid [Vitamin C] 500 mg PO BID 08/21/15 09/09/20 History Atorvastatin Calcium [Lipitor] 20 mg PO Q48H 08/21/15 09/09/20 History Ezetimibe [Zetia] 10 mg PO Q48H 08/21/15 09/09/20 History Gabapentin 300 mg PO BID 08/21/15 09/09/20 History Isosorbide Mononitrate ER [Imdur] 60 mg PO BID 08/21/15 09/09/20 History Pioglitazone HCl [Actos] 15 mg PO DAILY 08/21/15 09/09/20 History amLODIPine [Norvasc] 5 mg PO BID 08/21/15 09/09/20 History Calcium Carb-Vit D 500Mg-200Un 1 tab PO HS 06/01/16 09/09/20 History [Oscal 500+D] INSULIN LISPRO (humaLOG) [humaLOG] 8 units SQ BID@0900,1800 06/01/16 09/09/20 History Insulin Glargine [Lantus] 10 unit SQ HS 06/01/16 09/09/20 History Multivitamins, Thera [Multivitamin 1 tab PO DAILY 11/17/16 09/09/20 History (formulary)] Cranberry Concentrate 300mg 1 tab PO BID 11/04/19 09/09/20 History Ergocalciferol [Vitamin D2 50,000 unit PO TU 11/04/19 09/09/20 History (DRISDOL)] Ferrous Sulfate [Iron (65 MG 325 mg PO BID 11/04/19 09/09/20 History Elemental)] metFORMIN HCL [Glucophage] 1,000 mg PO BID 11/04/19 09/09/20 History Nitroglycerin Sl Tabs [Nitrostat] 0.4 mg SUBLINGUAL Q5M PRN #25 tab 11/06/19 09/09/20 Rx INSULIN LISPRO (humaLOG) [humaLOG] 6 units SQ AC-LUNCH 07/06/20 09/09/20 History Acetaminophen/Diphenhydramine 1 tab PO HS 09/09/20 09/09/20 History [Tylenol PM 500-25mg] Diclofenac Sodium/Misoprostol 1 tab PO TID PRN 09/09/20 09/09/20 History [Diclofenac-Misoprost 75-200 Tb] Isosorbide Mononitrate ER [Imdur] 60 mg PO BID 09/09/20 09/09/20 History Lysine HCl [l-Lysine] 1,000 mg PO W/LUNCH 09/09/20 09/09/20 History Metoprolol Tartrate [Lopressor] 75 mg PO QAM 09/09/20 09/09/20 History Allergies Allergy/AdvReac Type Severity Reaction Status Date / Time Penicillins Allergy Rash/Hives Verified 09/09/20 06:53 tobramycin Allergy Rash/Hives Verified 09/09/20 06:53 hydrocodone [From [place]] AdvReac Severe Diarrhea Verified 09/09/20 06:53 meloxicam [From [facility]] AdvReac Diarrhea Verified 09/09/20 06:53 Physical Exam Vitals: Vital Signs Temp Pulse Resp BP Pulse Ox 09/09/20 07:01 98.0 F 82 18 94/48 98 09/09/20 06:31 97.7 F 82 16 101/44 09/09/20 06:21 97.6 F 85 16 97/39 97 09/09/20 05:40 81 99/34 09/09/20 04:56 87 16 90/56 95 09/09/20 02:51 97.7 F 96 16 109/47 99 Intake and Output 09/08/20 09/09/20 09/09/20 22:59 06:59 14:59 Intake Total 0 Balance 0 Intake: Blood Product 0 Rc As-1 Unit 0 [id number] Other: Weight 125.645 kg Results CBC & Chem 7: 09/09/20 03:56 09/09/20 03:56 Labs: Abnormal Lab Results - Last 24 Hours (Table) 09/09/20 09/09/20 09/09/20 Range/Units 03:56 03:56 04:00 RBC 2.62 L (3.80-5.40) m/uL Hgb 6.4 L* D (11.4-16.0) gm/dL Hct 21.3 L (34.0-46.0) % MCH 24.3 L (25.0-35.0) pg MCHC 30.0 L (31.0-37.0) g/dL RDW 17.4 H (11.5-15.5) % Plt Count 537 H (150-450) k/uL Sodium 135 L (137-145) mmol/L Chloride 108 H (98-107) mmol/L Carbon Dioxide 21 L (22-30) mmol/L BUN 30 H (7-17) mg/dL Albumin 2.9 L (3.5-5.0) g/dL Crossmatch See Detail
--- NOTE | 2020-09-09 15:02 | P.CONS ---
History of Present Illness - Reason for Consult Consult date: 09/09/20 Wound care - History of Present Illness This is a 74-year-old patient with stage II pressure ulcers to the sacrum. Patient states that the ulceration started about June when she was diagnosed with [place] was in the hospital. Patient has been trying to treat the ulcerations at home utilizing a cream and powder that home care provided. Patient has not been seen by any other wound care agencies. Patient has a history of diabetes mellitus, hyperlipidemia, hypertension, myocardial infarction, utilizes a power chair. Patient says majority of her time either in a power chair lift chair or in bed. Review of Systems Review Of Systems: Constitutional: No fever, no chills, no night sweats. No weight change. No weakness, fatigue or lethargy. No daytime sleepiness. Integumentary:reports wounds, no lesions. No rash or pruritus. No unusual bruising. No change in hair or nails. Past Medical History Past Medical History: Chest Pain / Angina, Diabetes Mellitus, Hearing Disorder / Deafness, Hyperlipidemia, Hypertension, Myocardial Infarction ([place]), Osteoarthritis (OA) Additional Past Medical History / Comment(s): power chair- ambulates only a few feet, swelling of lower leg comes and goes, urinary leakage , neuropathy Last Myocardial Infarction Date:: 1991 History of Any Multi-Drug Resistant Organisms: None Reported Past Surgical History: Appendectomy, Heart Catheterization, Hysterectomy, Orthopedic Surgery, Tonsillectomy Additional Past Surgical History / Comment(s): ki hip replacements, hem orrhoidectomy Past Anesthesia/Blood Transfusion Reactions: Postoperative Nausea & Vomiting (PONV) Past Psychological History: No Psychological Hx Reported Smoking Status: Never smoker Past Alcohol Use History: None Reported Past Drug Use History: None Reported - Past Family History Father Family Medical History: Myocardial Infarction ([place]) Mother Family Medical History: CVA/TIA, Diabetes Mellitus Sister(s) Family Medical History: Cancer Medications and Allergies Home Medications Medication Instructions Recorded Confirmed Type Ascorbic Acid [Vitamin C] 500 mg PO BID 08/21/15 09/09/20 History Atorvastatin Calcium [Lipitor] 20 mg PO Q48H 08/21/15 09/09/20 History Ezetimibe [Zetia] 10 mg PO Q48H 08/21/15 09/09/20 History Gabapentin 300 mg PO BID 08/21/15 09/09/20 History Isosorbide Mononitrate ER [Imdur] 60 mg PO BID 08/21/15 09/09/20 History Pioglitazone HCl [Actos] 15 mg PO DAILY 08/21/15 09/09/20 History amLODIPine [Norvasc] 5 mg PO BID 08/21/15 09/09/20 History Calcium Carb-Vit D 500Mg-200Un 1 tab PO HS 06/01/16 09/09/20 History [Oscal 500+D] INSULIN LISPRO (humaLOG) [humaLOG] 8 units SQ BID@0900,1800 06/01/16 09/09/20 History Insulin Glargine [Lantus] 10 unit SQ HS 06/01/16 09/09/20 History Multivitamins, Thera [Multivitamin 1 tab PO DAILY 11/17/16 09/09/20 History (formulary)] Cranberry Concentrate 300mg 1 tab PO BID 11/04/19 09/09/20 History Ergocalciferol [Vitamin D2 50,000 unit PO TU 11/04/19 09/09/20 History (DRISDOL)] Ferrous Sulfate [Iron (65 MG 325 mg PO BID 11/04/19 09/09/20 History Elemental)] metFORMIN HCL [Glucophage] 1,000 mg PO BID 11/04/19 09/09/20 History Nitroglycerin Sl Tabs [Nitrostat] 0.4 mg SUBLINGUAL Q5M PRN #25 tab 11/06/19 09/09/20 Rx INSULIN LISPRO (humaLOG) [humaLOG] 6 units SQ AC-LUNCH 07/06/20 09/09/20 History Acetaminophen/Diphenhydramine 1 tab PO HS 09/09/20 09/09/20 History [Tylenol PM 500-25mg] Diclofenac Sodium/Misoprostol 1 tab PO TID PRN 09/09/20 09/09/20 History [Diclofenac-Misoprost 75-200 Tb] Isosorbide Mononitrate ER [Imdur] 60 mg PO BID 09/09/20 09/09/20 History Lysine HCl [l-Lysine] 1,000 mg PO W/LUNCH 09/09/20 09/09/20 History Metoprolol Tartrate [Lopressor] 75 mg PO QAM 09/09/20 09/09/20 History Allergies Allergy/AdvReac Type Severity Reaction Status Date / Time Penicillins Allergy Rash/Hives Verified 09/09/20 06:53 tobramycin Allergy Rash/Hives Verified 09/09/20 06:53 hydrocodone [From [place]] AdvReac Severe Diarrhea Verified 09/09/20 06:53 meloxicam [From [facility]] AdvReac Diarrhea Verified 09/09/20 06:53 Physical Exam Vitals: Vital Signs Temp Pulse Pulse Resp BP BP Pulse Ox 09/09/20 14:05 76 18 114/63 99 09/09/20 14:00 18 09/09/20 11:39 86 18 109/56 97 09/09/20 11:09 97.8 F 78 18 116/58 95 09/09/20 10:59 98.0 F 82 18 142/61 97 09/09/20 09:59 97.6 F 18 113/75 97 09/09/20 08:00 97.6 F 72 18 113/75 97 09/09/20 07:01 98.0 F 82 18 94/48 98 09/09/20 06:31 97.7 F 82 16 101/44 09/09/20 06:21 97.6 F 85 16 97/39 97 09/09/20 05:40 81 99/34 09/09/20 04:56 87 16 90/56 95 09/09/20 02:51 97.7 F 96 16 109/47 99 Intake and Output 09/08/20 09/09/20 09/09/20 22:59 06:59 14:59 Intake Total 0 620 Balance 0 620 Intake: Oral 0 Blood Product 0 620 Rc As-1 Unit 0 310 [id number] Rc As-1 Unit 310 [id number] Other: Voiding Method External Catheter # Voids 0 # Bowel Movements 0 Weight 125.645 kg Physical exam: General Appearance: Alert, cooperative, no distress, appears stated age. Skin: Full thickness stage II pressure ulcers to sacrum right and left buttocks. Multiple ulcerations. With granulation seen throughout to the wound bed and minimal slough. Periwound shows excoriation and maceration. Patient has increased moisture noted to the site. all other Skin color, texture, tugor no rmal, no rashes or lesions. Neurologic: Alert oriented x3 Results CBC & Chem 7: 09/09/20 03:56 09/09/20 03:56 Labs: Abnormal Lab Results - Last 24 Hours (Table) 09/09/20 09/09/20 09/09/20 Range/Units 03:56 03:56 03:56 RBC 2.62 L (3.80-5.40) m/uL Hgb 6.4 L* D (11.4-16.0) gm/dL Hct 21.3 L (34.0-46.0) % MCH 24.3 L (25.0-35.0) pg MCHC 30.0 L (31.0-37.0) g/dL RDW 17.4 H (11.5-15.5) % Plt Count 537 H (150-450) k/uL Retic Count 3.1 H (0.5-2.0) % Sodium 135 L (137-145) mmol/L Chloride 108 H (98-107) mmol/L Carbon Dioxide 21 L (22-30) mmol/L BUN 30 H (7-17) mg/dL Albumin 2.9 L (3.5-5.0) g/dL Crossmatch 09/09/20 Range/Units 04:00 RBC (3.80-5.40) m/uL Hgb (11.4-16.0) gm/dL Hct (34.0-46.0) % MCH (25.0-35.0) pg MCHC (31.0-37.0) g/dL RDW (11.5-15.5) % Plt Count (150-450) k/uL Retic Count (0.5-2.0) % Sodium (137-145) mmol/L Chloride (98-107) mmol/L Carbon Dioxide (22-30) mmol/L BUN (7-17) mg/dL Albumin (3.5-5.0) g/dL Crossmatch See Detail Assessment and Plan (1) Stage II pressure ulcer of buttock Current Visit: Yes Status: Acute Code(s): L89.302 - PRESSURE ULCER OF UNSPECIFIED BUTTOCK, STAGE 2 SNOMED Code(s): 93266825028032055 (2) Diabetes mellitus with skin ulcer Current Visit: Yes Status: Acute Code(s): E11.622 - TYPE 2 DIABETES MELLITUS WITH OTHER SKIN ULCER; L98.499 - NON-PRESSURE CHRONIC ULCER OF SKIN OF SITES W UNSP SEVERITY SNOMED Code(s): 73887244 (3) Morbid obesity Current Visit: Yes Status: Acute Code(s): E66.01 - MORBID (SEVERE) OBESITY DUE TO EXCESS CALORIES SNOMED Code(s): 469398758 Plan: Apply honey alginate, saline moistened gauze, dry gauze, apply triad to areas not covered with the honey alginate. Secure with a sacrum border gauze. Change Tuesday. Continue with these orders upon discharge with home care. Discussed with patient's to utilize a Roho cushion. Encouraged patient to come to the wound care center for continued treatment patient declined at this time due to inability to travel. Questions were answered. Prescription given for Roho cushion. Thank you for the consultation any questions to contact the wound care center DNP note has been reviewed and discussed with Dr. Roa and the impression and plan of care has been directed as dictated.
[2020-09-09 15:14] LABS: Anisocytosis Slight; Basophils % (A) 0 %; Eosinophils # (A) 0.7 k/uL (0-0.7); Eosinophils % (A) 6 %; HCT 25.4 % (34.0-46.0); HGB 7.9 gm/dL (11.4-16.0); Hypochromasia Marked; Lymphocytes # (A) 1.5 k/uL (1.0-4.8); Lymphocytes % (A) 13 %; MCH 25.7 pg (25.0-35.0); MCV 82.9 fL (80.0-100.0); Mean Platelet Volume 6.9; Monocytes # (A) 0.8 k/uL (0-1.0); Monocytes % (A) 7 %; Neutrophils # (A) 8.4 k/uL (1.3-7.7); Neutrophils % (A) 72 %; Platelet Count 431 k/uL (150-450); Poikilocytosis Slight; RBC 3.06 m/uL (3.80-5.40); RDW 16.6 % (11.5-15.5); WBC 11.6 k/uL (3.8-10.6)
[2020-09-09] MEDS ORDERED: PEG 3350-NA SULF,BICARB,CL/KCL 4,000 ML BOTTLE PO ONE (16:00)
[2020-09-09 16:40] LABS: Ferritin 12.6 ng/mL (10.0-291.0); Folate, Serum >24.0 ng/mL
[2020-09-09 17:04] LABS: Glucose,Whole Blood 82 mg/dL (75-99)
[2020-09-09] MEDS: INSULIN ASPART (NovoLOG) 100 UNIT/ML VIAL SQ SCH ×2 (17:04→21:08)
[2020-09-09] MEDS: EZETIMIBE 10 MG TAB PO SCH (17:19)
[2020-09-09] MEDS: PANTOPRAZOLE 40 MG/10 ML VIAL IV SCH (17:20)
[2020-09-09 17:30] LABS: % Iron Saturation 0.38 (12.00-45.00); Iron <2 ug/dL (50-170); Total Iron Binding Capacity 264 ug/dL (228-460)
[2020-09-09] MEDS ORDERED: DICLOFENAC SODIUM GEL 100 GM TUBE TOPICAL PRN (20:17)
[2020-09-09] MEDS: ISOSORBIDE MONONITRATE ER 60 MG TAB.ER.24H PO SCH (21:00)
[2020-09-09] MEDS: CALCIUM CARB-VIT D 500 MG-5 MCG TAB PO SCH (21:00)
[2020-09-09] MEDS: GABAPENTIN 300 MG CAP PO SCH (21:00)
[2020-09-09] MEDS: ASCORBIC ACID 500 MG TAB PO SCH (21:00)
[2020-09-09] MEDS: metFORMIN 500 MG TAB PO SCH ×2 (21:00→21:09)
[2020-09-09] MEDS ORDERED: FERROUS SULFATE 325 MG TAB PO SCH (21:00)
[2020-09-09] MEDS: ACETAMINOPHEN TAB 500 MG TAB PO PRN (21:00)
[2020-09-09] MEDS: NON FORMULARY DRUG (Acetaminophen/Diphenhydramine [Tylenol Pm 500-25mg] 1 EACH Tablet) PO SCH (21:01)
[2020-09-09] MEDS: INSULIN DETEMIR (LEVEMIR) 100 UNIT/ML SYR SQ SCH (21:07)
[2020-09-09 21:08] LABS: Glucose,Whole Blood 121 mg/dL (75-99)
[2020-09-09] MEDS ORDERED: SODIUM FERRIC GLUCONAT-SUCROSE 125 MG in SODIUM CHLORIDE 0.9% 100 ML IVPB SCH (21:30)
[2020-09-09] MEDS: SODIUM FERRIC GLUCONAT-SUCROSE 125 MG in SODIUM CHLORIDE 0.9% 100 ML IVPB SCH (21:54)
--- NOTE | 2020-09-09 22:00 | P.CONS ---
History of Present Illness - Reason for Consult Consult date: 09/09/20 Anemia Requesting physician: Joshua Sawyer - Chief Complaint Abnormal labs, anemia - History of Present Illness 74-year-old female with a medical history significant for hypertension, hyperlipidemia, diabetes mellitus, osteoarthritis, coronary artery disease with prior SD and a known history of anemia who is debilitated and bed bound with known decubitus ulceration who presented to the hospital for evaluation of abnormal laboratory evaluation in the outpatient setting and anemia. The patient reports a known history of iron deficiency on oral iron in the outpatient setting. Recent outpatient laboratory evaluation was significant for a hemoglobin of 5.9 and the patient was told to come to the emergency department for further evaluation. On questioning the patient denies any nausea, vomiting, hematemesis, change in bowel habits, blood per rectum or melanotic stool. She does occasionally have diarrhea. The patient denies any prior history of peptic ulcer disease. She has never undergone endoscopic evaluation with EGD or colonoscopy. On questioning the patient reports that she has been instructed by her primary care physician to have the procedures done for further evaluation of the anemia but has continued to put it off in the outpatient setting. Currently she is denying any abdominal pain. Laboratory evaluation on presentation significant for WBC 10.1, hemoglobin 6.4, platelet count 537,000, total bilirubin 0.5, alkaline phosphatase 5.6, AST 36 and ALT 16. Iron studies which were added on after the patient was seen by the GI service to her initial blood draw were significant for markedly depressed iron studies. Review of Systems REVIEW OF SYSTEMS: CONSTITUTIONAL: Denies any fevers, chills, weight change or fatigue. CARDIOVASCULAR: Denies any chest pain, palpitations high or low blood pressures RESPIRATORY: Denies any shortness of breath, hemoptysis or cough. GENITOURINARY: No dysuria or hematuria. MUSCULOSKELETAL: No weakness reported, but the patient suffers from general debility and immobility. SKIN: Denies any new rashes or lesions, jaundice or pallor, she has known decubitus ulcers. PSYCHIATRIC: Denies any depression or anxiety. NEUROLOGY: Denies headache, denies any new focal deficits. EARS/NOSE/THROAT: No recent hearing change, congestion, nasal discharge or sore throat. EYES: No pain in eyes, discharge or change in vision. GASTROINTESTINAL: As per HPI. Past Medical History Past Medical History: Chest Pain / Angina, Diabetes Mellitus, Hearing Disorder / Deafness, Hyperlipidemia, Hypertension, Myocardial Infarction (SD), Osteoarthritis (OA) Additional Past Medical History / Comment(s): power chair- ambulates only a few feet, swelling of lower leg comes and goes, urinary leakage , neuropathy Last Myocardial Infarction Date:: 1991 History of Any Multi-Drug Resistant Organisms: None Reported Past Surgical History: Appendectomy, Heart Catheterization, Hysterectomy, Orthopedic Surgery, Tonsillectomy Additional Past Surgical History / Comment(s): ki hip replacements, hemorrhoide ctomy Past Anesthesia/Blood Transfusion Reactions: Postoperative Nausea & Vomiting (PONV) Past Psychological History: No Psychological Hx Reported Smoking Status: Never smoker Past Alcohol Use History: None Reported Past Drug Use History: None Reported - Past Family History Father Family Medical History: Myocardial Infarction (SD) Mother Family Medical History: CVA/TIA, Diabetes Mellitus Sister(s) Family Medical History: Cancer Medications and Allergies Home Medications Medication Instructions Recorded Confirmed Type Ascorbic Acid [Vitamin C] 500 mg PO BID 08/21/15 09/09/20 History Atorvastatin Calcium [Lipitor] 20 mg PO Q48H 08/21/15 09/09/20 History Ezetimibe [Zetia] 10 mg PO Q48H 08/21/15 09/09/20 History Gabapentin 300 mg PO BID 08/21/15 09/09/20 History Isosorbide Mononitrate ER [Imdur] 60 mg PO BID 08/21/15 09/09/20 History Pioglitazone HCl [Actos] 15 mg PO DAILY 08/21/15 09/09/20 History amLODIPine [Norvasc] 5 mg PO BID 08/21/15 09/09/20 History Calcium Carb-Vit D 500Mg-200Un 1 tab PO HS 06/01/16 09/09/20 History [Oscal 500+D] INSULIN LISPRO (humaLOG) [humaLOG] 8 units SQ BID@0900,1800 06/01/16 09/09/20 History Insulin Glargine [Lantus] 10 unit SQ HS 06/01/16 09/09/20 History Multivitamins, Thera [Multivitamin 1 tab PO DAILY 11/17/16 09/09/20 History (formulary)] Cranberry Concentrate 300mg 1 tab PO BID 11/04/19 09/09/20 History Ergocalciferol [Vitamin D2 50,000 unit PO TU 11/04/19 09/09/20 History (DRISDOL)] Ferrous Sulfate [Iron (65 MG 325 mg PO BID 11/04/19 09/09/20 History Elemental)] metFORMIN HCL [Glucophage] 1,000 mg PO BID 11/04/19 09/09/20 History Nitroglycerin Sl Tabs [Nitrostat] 0.4 mg SUBLINGUAL Q5M PRN #25 tab 11/06/19 09/09/20 Rx INSULIN LISPRO (humaLOG) [humaLOG] 6 units SQ AC-LUNCH 07/06/20 09/09/20 History Acetaminophen/Diphenhydramine 1 tab PO HS 09/09/20 09/09/20 History [Tylenol PM 500-25mg] Diclofenac Sodium/Misoprostol 1 tab PO TID PRN 09/09/20 09/09/20 History [Diclofenac-Misoprost 75-200 Tb] Isosorbide Mononitrate ER [Imdur] 60 mg PO BID 09/09/20 09/09/20 History Lysine HCl [l-Lysine] 1,000 mg PO W/LUNCH 09/09/20 09/09/20 History Metoprolol Tartrate [Lopressor] 75 mg PO QAM 09/09/20 09/09/20 History Allergies Allergy/AdvReac Type Severity Reaction Status Date / Time Penicillins Allergy Rash/Hives Verified 09/09/20 06:53 tobramycin Allergy Rash/Hives Verified 09/09/20 06:53 hydrocodone [From [place]] AdvReac Severe Diarrhea Verified 09/09/20 06:53 meloxicam [From Mobic] AdvReac Diarrhea Verified 09/09/20 06:53 Physical Exam Vitals: Vital Signs Temp Pulse Pulse Resp BP BP Pulse Ox 09/09/20 14:05 76 18 114/63 99 09/09/20 11:39 86 18 109/56 97 09/09/20 11:09 97.8 F 78 18 116/58 95 09/09/20 10:59 98.0 F 82 18 142/61 97 09/09/20 09:59 97.6 F 18 113/75 97 09/09/20 08:00 97.6 F 72 18 113/75 97 09/09/20 07:01 98.0 F 82 18 94/48 98 09/09/20 06:31 97.7 F 82 16 101/44 09/09/20 06:21 97.6 F 85 16 97/39 97 09/09/20 05:40 81 99/34 09/09/20 04:56 87 16 90/56 95 09/09/20 02:51 97.7 F 96 16 109/47 99 Intake and Output 09/08/20 09/09/20 09/09/20 22:59 06:59 14:59 Intake Total 0 620 Balance 0 620 Intake: Oral 0 Blood Product 0 620 Rc As-1 Unit 0 310 [id number] Rc As-1 Unit 310 [id number] Other: Voiding Method External Catheter # Voids 0 # Bowel Movements 0 Weight 125.645 kg On physical examination, patient appears comfortable in no apparent distress. HEAD: Normocephalic, atraumatic. EYES: No scleral icterus. No conjunctival injection. MOUTH: No lesions, tongue midline. NECK: Trachea midline, no gross abnormalities. CHEST: Decreased air entry in all lung soto. HEART: S1-S2 appreciated. ABDOMEN: Soft, obese and nontender to palpation. Bowel sounds are positive. No organomegaly. No guarding or rigidity. EXTREMITIES: Bilateral pedal edema. SKIN: No rashes, no jaundice, decubitus ulcers. NEUROLOGIC: Alert and oriented x3. Patient suffers from immobility/stability at baseline. Results CBC & Chem 7: 09/09/20 14:59 09/09/20 03:56 Labs: Abnormal Lab Results - Last 24 Hours (Table) 09/09/20 09/09/20 09/09/20 Range/Units 03:56 03:56 03:56 RBC 2.62 L (3.80-5.40) m/uL Hgb 6.4 L* D (11.4-16.0) gm/dL Hct 21.3 L (34.0-46.0) % MCH 24.3 L (25.0-35.0) pg MCHC 30.0 L (31.0-37.0) g/dL RDW 17.4 H (11.5-15.5) % Plt Count 537 H (150-450) k/uL Retic Count 3.1 H (0.5-2.0) % Sodium 135 L (137-145) mmol/L Chloride 108 H (98-107) mmol/L Carbon Dioxide 21 L (22-30) mmol/L BUN 30 H (7-17) mg/dL Albumin 2.9 L (3.5-5.0) g/dL Crossmatch 09/09/20 Range/Units 04:00 RBC (3.80-5.40) m/uL Hgb (11.4-16.0) gm/dL Hct (34.0-46.0) % MCH (25.0-35.0) pg MCHC (31.0-37.0) g/dL RDW (11.5-15.5) % Plt Count (150-450) k/uL Retic Count (0.5-2.0) % Sodium (137-145) mmol/L Chloride (98-107) mmol/L Carbon Dioxide (22-30) mmol/L BUN (7-17) mg/dL Albumin (3.5-5.0) g/dL Crossmatch See Detail Assessment and Plan (1) Iron deficiency anemia Narrative/Plan: 74-year-old female with multiple medical comorbidities including a known history of anemia who presented to the hospital for evaluation of abnormal outpatient laboratory draw with worsening anemia. Patient had been on oral iron in the outpatient setting however on presentation to the hospital the patient found to have a significant anemia with hemoglobin of 6.4 with iron studies performed significant for a severe iron deficiency. The patient denies any signs or symp toms of GI bleeding with no hematemesis, coffee-ground emesis, melena or hematochezia. No abdominal pain reported. She denies any change in bowel habits does report some diarrhea baseline. No prior endoscopic evaluation with EGD or colonoscopy, although the patient reports that her primary care physician has been asking her to perform the procedures and that she has delayed having that done. Unclear etiology, may be related to peptic ulcer disease, AVM, severe gastritis/esophagitis, malignancy or other etiology. Current Visit: Yes Status: Acute Code(s): D50.9 - IRON DEFICIENCY ANEMIA, UNSPECIFIED SNOMED Code(s): 24439814 Plan: Supportive care Clear liquid diet Nothing by mouth after midnight Continue to monitor hemoglobin and hematocrit and transfuse as needed laboratory evaluation with iron studies Anemia laboratory evaluation ordered Oral iron stopped and IV iron ordered for 3 doses, can resume oral iron after she receives parenteral iron Patient is scheduled for EGD and colonoscopy tomorrow for further evaluation with all of the risks, benefits and possible complications of the procedure to into the patient at length with all of her questions answered to her satisfaction Wound care consulted Thank you for allowing us to participate in the care of the patient, we will continue to follow
[2020-09-10 00:16] LABS: Anisocytosis Slight; HCT 24.2 % (34.0-46.0); HGB 7.7 gm/dL (11.4-16.0); Hypochromasia Marked; MCH 26.2 pg (25.0-35.0); MCHC 31.7 g/dL (31.0-37.0); MCV 82.6 fL (80.0-100.0); Mean Platelet Volume 7.2; Platelet Count 441 k/uL (150-450); Poikilocytosis Moderate; RBC 2.93 m/uL (3.80-5.40); RDW 16.7 % (11.5-15.5); WBC 12.3 k/uL (3.8-10.6)
[2020-09-10] MEDS: ACETAMINOPHEN TAB 500 MG TAB PO PRN (03:42)
[2020-09-10 06:06] LABS: Glucose,Whole Blood 74 mg/dL (75-99)
[2020-09-10] MEDS: INSULIN ASPART (NovoLOG) 100 UNIT/ML VIAL SQ SCH ×4 (06:23→21:39)
[2020-09-10] MEDS ORDERED: MAGNESIUM CITRATE 296 ML BOTTLE PO ONE (07:48)
[2020-09-10 08:00] LABS: Anisocytosis Slight; Basophils % (A) 0 %; Eosinophils # (A) 0.6 k/uL (0-0.7); Eosinophils % (A) 6 %; HCT 25.8 % (34.0-46.0); HGB 8.1 gm/dL (11.4-16.0); Hypochromasia Marked; Lymphocytes # (A) 1.1 k/uL (1.0-4.8); Lymphocytes % (A) 10 %; MCHC 31.3 g/dL (31.0-37.0); Mean Platelet Volume 6.7; Monocytes # (A) 0.6 k/uL (0-1.0); Monocytes % (A) 6 %; Neutrophils % (A) 77 %; Platelet Count 451 k/uL (150-450); Poikilocytosis Slight; RDW 16.8 % (11.5-15.5); WBC 10.3 k/uL (3.8-10.6)
[2020-09-10] MEDS ORDERED: Acetaminophen-Codeine 300-30mg TAB PO STA (08:29)
[2020-09-10] MEDS: PANTOPRAZOLE 40 MG/10 ML VIAL IV SCH (08:57)
[2020-09-10] MEDS: SODIUM FERRIC GLUCONAT-SUCROSE 125 MG in SODIUM CHLORIDE 0.9% 100 ML IVPB SCH (08:57)
[2020-09-10] MEDS ORDERED: SODIUM FERRIC GLUCONAT-SUCROSE 125 MG in SODIUM CHLORIDE 0.9% 100 ML IVPB SCH (09:00)
[2020-09-10 11:18] VITALS: BMI 49.6
[2020-09-10 11:54] LABS: Glucose,Whole Blood 86 mg/dL (75-99)
--- NOTE | 2020-09-10 12:11 | P.PN ---
Subjective Progress Note Date: 09/10/20 HISTORY OF PRESENT ILLNESS This is a 74-year-old female patient of Dr. Jacques recently established with Dr. Yeboah with past medical history of hypertension, hyperlipidemia, diabetes mellitus type II insulin requiring, generalized osteoarthritis, CAD with prior NE in 1991 and anemia with unknown cause. Patient was last hospitalized for Covid pneumonia and UTI. Patient states that she was doing well recently except she is mostly wheelchair/bed bound. She has decubitus ulcers to the coccyx. Patient states that she has diarrhea but denies any black stools. Her primary care doctor increased her iron this weekend to twice daily. She had blood work done as an outpatient and was contacted regarding a hemoglobin of 5.9 instructed to come in the hospital. Patient states she has never had a colonoscopy. Patient came into [facility] emergency center for evaluation. She was afebrile, heart rate 96, blood pressure 109/47, pulse ox 99% on room air. WBC 10.1, hemoglobin 6.4, platelet count 537. Reticulocyte count 3.1. INR 1. Sodium 135, potassium 5, chloride 108, CO2 21, BUN 30, creatinine 0.86. Liver function tests normal. Transfusion was ordered and patient admitted to the cardiac stepdown unit and consult requested with GI. Also consult in place for Wound Center evaluation. 09/10: Patient was seen by GI with plan for EGD and colonoscopy today. Patient states that she was on and off the bedpan all during the night and strained her right shoulder. Tylenol 3 added for pain. Repeat hemoglobin is 8.1 following 2 units packed RBCs. Patient is asking and requesting to go home today if possible. We will plan to follow up on EGD and colonoscopy later today and if possible, discharge home. REVIEW OF SYSTEMS Constitutional: No fever, no chills, no night sweats. No weight change. Reports chronic weakness, reports fatigue. No daytime sleepiness. EENT: No headache. No blurred vision or double vision, no loss of vision. No loss of Hearing, no ringing in the ears, no dizziness. No nasal drainage or c ongestion. No epistaxis. No sore throat. Lungs: No shortness of breath, reports cough, reports sputum production. No wheezing. Cardiovascular: No chest pain, no lower extremity edema. No palpitations. No paroxysmal nocturnal dyspnea. No orthopnea. No lightheadedness or dizziness. No syncopal episodes. Abdominal: No abdominal pain. No nausea, vomiting. No diarrhea. No constipation. No bloody or tarry stools. Denies BRBR. No loss of appetite. Genitourinary: No dysuria, increased frequency, urgency. No urinary retention. Musculoskeletal: No myalgias. No muscle weakness, no gait dysfunction, no frequent falls. No back pain. No neck pain. Integumentary: No wounds, no lesions. No rash or pruritus. Neurologic: No aphasia. No facial droop. No change in mentation. No head injury. No headache. Endocrine: No abnormal blood sugars. PHYSICAL EXAMINATION Gen: This is a 74-year-old morbidly obese female. She is resting in bed and appears to be comfortable and in no acute distress. HEENT: Head is atraumatic, normocephalic. Pupils equal, round. Sclerae is anicteric. NECK: Supple. No JVD. No lymphadenopathy. No thyromegaly. LUNGS: Diminished to the base. No intercostal retractions. HEART: Regular rate and rhythm. Systolic murmur. ABDOMEN: Soft. Bowel sounds are present. No masses. No tenderness. No abdominal tenderness. COCCYX: 2 x 2 second degree pressure ulcer on the right and 1 x 2 on the left. Please see nursing documentation for details EXTREMITIES: Trace bilateral pedal edema. Right foot drop. Decreased range of motion to the right shoulder. NEUROLOGICAL: Patient is awake, alert and oriented x3. Cranial nerves 2 through 12 are grossly intact. ASSESSMENT AND PLAN 1. Severe anemia of unclear etiology. No obvious signs of bleeding. Consult with GI appreciated. Patient scheduled for EGD and colonoscopy. Patient status transfusion of 2 units packed RBCs, monitor hemoglobin closely. Iron studies ordered. Hold oral diclofenac. 2. Recent hospitalization for Covid pneumonitis. Stable. 3. Decubitus ulcer coccyx, present on admission. Wound care consult. 4. History of coronary artery disease and NE in the past. Hold aspirin 81 mg daily, continue Lipitor 20 mg every 48 hours, Lopressor, Imdur 60 mg twice daily. 5. Hypertension. Continue Lopressor 75 mg daily, Norvasc 5 mg at bedtime on hold. 6. Hyperlipidemia. Continue atorvastatin. 7. Diabetes mellitus type 2. Hold metformin 1000 mg twice daily and Actos. Continue Levemir 10 units at bedtime and NovoLog scale. 8. Generalized osteoarthritis. Continue gabapentin, vitamin B12. 9. GI prophylaxis. Protonix 40 mg IV daily. DISCHARGE PLAN Most likely return home with homecare. Impression and plan of care have been directed as dictated by the signing physician. Katie James nurse practitioner acting as scribe for signing physician. Objective - Vital Signs Vital signs: Vital Signs Temp 97.9 F 09/10/20 04:00 Pulse 91 09/10/20 04:00 Resp 19 09/10/20 04:00 BP 112/50 09/10/20 04:00 Pulse Ox 95 09/10/20 04:00 Intake & Output 09/09/20 09/10/20 09/10/20 18:59 06:59 18:59 Intake Total 1620 Output Total 700 900 Balance 920 -900 Weight 131 kg Intake: Oral 1000 Blood Product 620 Rc As-1 Unit 310 [id number] Rc As-1 Unit 310 [id number] Output: Urine 700 900 Other: Voiding Method External Catheter External Catheter # Voids 0 # Bowel Movements 0 1 - Labs CBC & Chem 7: 09/10/20 07:48 09/09/20 03:56 Labs: Abnormal Lab Results - Last 24 Hours (Table) 09/09/20 09/09/20 09/09/20 Range/Units 03:56 03:56 04:00 WBC (3.8-10.6) k/uL RBC (3.80-5.40) m/uL Hgb (11.4-16.0) gm/dL Hct (34.0-46.0) % RDW (11.5-15.5) % Plt Count (150-450) k/uL Neutrophils # (1.3-7.7) k/uL Retic Count 3.1 H (0.5-2.0) % POC Glucose (mg/dL) (75-99) mg/dL Iron <2 L (50-170) ug/dL % Saturation 0.38 L (12.00-45.00) Crossmatch See Detail 09/09/20 09/09/20 09/09/20 Range/Units 14:59 21:06 23:54 WBC 11.6 H 12.3 H (3.8-10.6) k/uL RBC 3.06 L 2.93 L (3.80-5.40) m/uL Hgb 7.9 L D 7.7 L (11.4-16.0) gm/dL Hct 25.4 L 24.2 L (34.0-46.0) % RDW 16.6 H 16.7 H (11.5-15.5) % Plt Count (150-450) k/uL Neutrophils # 8.4 H (1.3-7.7) k/uL Retic Count (0.5-2.0) % POC Glucose (mg/dL) 121 H (75-99) mg/dL Iron (50-170) ug/dL % Saturation (12.00-45.00) Crossmatch 09/10/20 09/10/20 Range/Units 06:04 07:48 WBC (3.8-10.6) k/uL RBC 3.10 L (3.80-5.40) m/uL Hgb 8.1 L (11.4-16.0) gm/dL Hct 25.8 L (34.0-46.0) % RDW 16.8 H (11.5-15.5) % Plt Count 451 H (150-450) k/uL Neutrophils # 8.0 H (1.3-7.7) k/uL Retic Count (0.5-2.0) % POC Glucose (mg/dL) 74 L (75-99) mg/dL Iron (50-170) ug/dL % Saturation (12.00-45.00) Crossmatch
[2020-09-10] MEDS ORDERED: SODIUM CHLORIDE 0.9% 1,000 ML IV ONE (13:16)
[2020-09-10] MEDS ORDERED: PROPOFOL 10 MG/ML 20 ML VIAL IV ONE (13:20)
[2020-09-10] MEDS ORDERED: LIDOCAINE 1% INJ 10MG/ML (20 ML MDV) ONE (13:20)
[2020-09-10] MEDS: HYDROPHILIC CREAM 180 GM TUBE TOPICAL SCH (15:01)
--- NOTE | 2020-09-10 15:04 | P.PCN ---
Date of Procedure: 09/10/20 Description of Procedure: Brief history: 74-year-old female with a medical history significant for hypertension, hyperlipidemia, diabetes mellitus, osteoarthritis, coronary artery disease with prior [place] and a known history of anemia who is debilitated and bed bound with known decubitus ulceration who presented to the hospital for evaluation of abnormal laboratory evaluation in the outpatient setting and anemia. The patient reports a known history of iron deficiency on oral iron in the outpatient setting. Recent outpatient laboratory evaluation was significant for a hemoglobin of 5.9 and the patient was told to come to the emergency department for further evaluation. On questioning the patient denies any nausea, vomiting, hematemesis, change in bowel habits, blood per rectum or melanotic stool. She does occasionally have diarrhea. The patient denies any prior history of peptic ulcer disease. She has never undergone endoscopic evaluation with EGD or colonoscopy. On questioning the patient reports that she has been instructed by her primary care physician to have the procedures done for further evaluation of the anemia but has continued to put it off in the outpatient setting. Currently she is denying any abdominal pain. Laboratory evaluation on presentation sig nificant for WBC 10.1, hemoglobin 6.4, platelet count 537,000, total bilirubin 0.5, alkaline phosphatase 5.6, AST 36 and ALT 16. Iron studies which were added on after the patient was seen by the GI service to her initial blood draw were significant for markedly depressed iron studies. Procedure performed: Esophagogastroduodenoscopy with biopsy Colonoscopy with polypectomy Estimated blood loss: Minimal. Preoperative diagnosis: Severe iron deficiency anemia, no prior endoscopy Anesthesia: MAC Procedure: After informed consent was obtained from the patient was brought into the endoscopy unit and IV sedation was administered by anesthesia under continuous monitoring. Initially upper endoscopy was done. The Olympus GF 190 video endoscope was inserted into the mouth and esophagus intubated without any difficulty and was gradually advanced into the stomach and duodenum and carefully examined. The second part of the duodenum appeared normal with biopsies taken. However in the duodenal sweep there were 2 nonbleeding ulcerated areas that were biopsied, without high-risk stigmata for bleeding . The scope was then withdrawn into the stomach adequately insufflated with air and upon careful examination the antrum and body, cardia and fundus appeared normal, Except for some mild scattered erythema in the antrum and body suggestive of mild gastritis biopsy taken. The scope was then withdrawn into the esophagus. The GE junction was located at 37 cm to the incisors. It appeared regular with no erythema erosions or ulcerations. Rest of the esophagus appeared normal. Patient tolerated the procedure well. At this time the patient continued to remain sedation. Initial digital rectal examination was normal. Olympus CF 190 video colonoscope was then inserted into the rectum and gradually advanced to the cecum without any difficulty. Careful examination was performed as the scope was gradually being withdrawn. The prep was excellent. The cecum, ascending colon, transverse colon, descending colon, sigmoid colon and rectum appeared normal. A few scattered diverticula were noted in the left colon. A flat 3 mm rectal polyp was removed with cold snare polypectomy. Retroflexion was performed in the rectum and no lesions were noted, low-grade internal hemorrhoids seen. Patient tolerated the procedure well. Impression: 1. 2 subcentimeter nonbleeding duodenal ulcers without high-risk stigmata for bleeding, biopsied. Mild gastritis antrum body, biopsied. Duodenal biopsies. 2. Mild left colonic diverticulosis. Low-grade internal hemorrhoids. Diminuti ve rectal polyp removed with cold snare. Recommendations: Findings of this examination were discussed with the patient as well as her . Okay to resume diet. Okay to resume medications. Patient should be continued on twice daily Protonix therapy. Patient should avoid NSAID use. Await pathology from biopsies. Await pathology from polypectomy. Continue IV iron supplementation. Continue to monitor hemoglobin and hematocrit and transfuse as needed. Okay for diet.
[2020-09-10] MEDS: METOPROLOL TARTRATE 25 MG TAB PO SCH (16:16)
[2020-09-10] MEDS: GABAPENTIN 300 MG CAP PO SCH ×2 (16:16→21:38)
[2020-09-10] MEDS: ASCORBIC ACID 500 MG TAB PO SCH ×2 (16:17→21:38)
[2020-09-10] MEDS: ATORVASTATIN 20 MG TAB PO SCH (16:17)
[2020-09-10] MEDS: MULTIVITAMINS, THERA 1 EACH TAB PO SCH (16:17)
[2020-09-10] MEDS: ISOSORBIDE MONONITRATE ER 60 MG TAB.ER.24H PO SCH ×2 (16:24→21:38)
[2020-09-10 16:53] LABS: Anisocytosis Slight; HCT 27.2 % (34.0-46.0); HGB 8.7 gm/dL (11.4-16.0); Hypochromasia Marked; MCH 26.5 pg (25.0-35.0); MCV 82.7 fL (80.0-100.0); Mean Platelet Volume 7.2; Platelet Count 472 k/uL (150-450); Poikilocytosis Moderate; RBC 3.29 m/uL (3.80-5.40); RDW 16.9 % (11.5-15.5); WBC 12.6 k/uL (3.8-10.6)
[2020-09-10] MEDS: metFORMIN 500 MG TAB PO SCH ×2 (17:02→21:38)
[2020-09-10 17:15] LABS: Glucose,Whole Blood 94 mg/dL (75-99)
[2020-09-10 21:20] LABS: Glucose,Whole Blood 168 mg/dL (75-99)
[2020-09-10] MEDS: CALCIUM CARB-VIT D 500 MG-5 MCG TAB PO SCH (21:38)
[2020-09-10] MEDS: INSULIN DETEMIR (LEVEMIR) 100 UNIT/ML SYR SQ SCH (21:39)
[2020-09-10] MEDS: NON FORMULARY DRUG (Acetaminophen/Diphenhydramine [Tylenol Pm 500-25mg] 1 EACH Tablet) PO SCH (23:35)
[2020-09-11] MEDS: ACETAMINOPHEN TAB 500 MG TAB PO PRN ×2 (05:01→22:44)
[2020-09-11] MEDS: Acetaminophen-Codeine 300-30mg TAB PO PRN ×2 (05:52→13:07)
[2020-09-11 07:33] LABS: Glucose,Whole Blood 108 mg/dL (75-99)
[2020-09-11] MEDS: INSULIN ASPART (NovoLOG) 100 UNIT/ML VIAL SQ SCH ×4 (08:06→22:34)
--- NOTE | 2020-09-11 08:23 | XR ---
EXAMINATION TYPE: XR chest 1V DATE OF EXAM: 09/11/2020 CLINICAL HISTORY: Difficulty breathing and fever progress study. TECHNIQUE: Single AP portable frontal view of the chest is obtained. COMPARISON: Chest x-ray from July 09, 2020 FINDINGS: Chronic parenchymal changes and low lung volumes redemonstrated. No suspicious new focal ai rspace opacity, pleural effusion, or pneumothorax seen bilaterally. Cardiac silhouette size stable an d within normal limits. Osseous structures remain demineralized. Right shoulder advanced glenohumeral joint arthropathy redemonstrated. IMPRESSION: Low lung volumes without new acute infiltrate.
--- NOTE | 2020-09-11 08:48 | CT ---
EXAMINATION TYPE: CT brain wo con DATE OF EXAM: 09/11/2020 COMPARISON: None HISTORY: 74-year-old female confusion, altered mental status TECHNIQUE: Examination was done in axial plane without intravenous contrast. Coronal and sagittal r econstructions performed. CT DLP: 1064.30 mGycm Automated exposure control for dose reduction was used. FINDINGS: There is no evidence of acute intracranial hemorrhage, acute ischemic changes, mass, mass-effect, or extra-axial fluid collection. There is no effacement of cerebral sulci or basal subarachnoid cister ns. There is no midline shift. Gerard-white matter distinction is preserved. Normal variation of hyperostosis frontalis interna. There is extensive dental amalgam artifact obscur ing most of the cerebellum. Mild ventricular prominence probably in part due to central cerebral atrophy. Ulrich ratio is calculat ed at 0.36. Moderate patchy periventricular and deep white matter hypodensity. Benign basal ganglioni c calcifications. Mastoid air cells well pneumatized. Orbits and globes appear intact. Mild mucosal thickening ethmoid air cells. IMPRESSION: Mild ventriculomegaly probably due to central cerebral atrophy. Correlate to exclude a component of N PH. Prominent dental amalgam artifact obscuring most of the cerebellum. Mild to moderate burden of ch ronic small vessel ischemic disease. Otherwise, no acute intracranial abnormality seen.
[2020-09-11] MEDS: GABAPENTIN 300 MG CAP PO SCH ×2 (08:52→20:25)
[2020-09-11] MEDS: MULTIVITAMINS, THERA 1 EACH TAB PO SCH (08:52)
[2020-09-11] MEDS: metFORMIN 500 MG TAB PO SCH ×2 (08:52→20:25)
[2020-09-11] MEDS: ASCORBIC ACID 500 MG TAB PO SCH ×2 (08:52→22:36)
[2020-09-11] MEDS: METOPROLOL TARTRATE 25 MG TAB PO SCH (08:52)
[2020-09-11] MEDS: SODIUM FERRIC GLUCONAT-SUCROSE 125 MG in SODIUM CHLORIDE 0.9% 100 ML IVPB SCH (08:53)
[2020-09-11] MEDS: PANTOPRAZOLE 40 MG/10 ML VIAL IV SCH (08:53)
[2020-09-11] MEDS: ISOSORBIDE MONONITRATE ER 60 MG TAB.ER.24H PO SCH ×2 (09:21→20:25)
[2020-09-11] MEDS: HYDROPHILIC CREAM 180 GM TUBE TOPICAL SCH (09:21)
[2020-09-11 10:02] LABS: Anisocytosis Slight; HCT 27.7 % (34.0-46.0); HGB 8.5 gm/dL (11.4-16.0); Hypochromasia Marked; MCH 25.5 pg (25.0-35.0); MCHC 30.6 g/dL (31.0-37.0); MCV 83.2 fL (80.0-100.0); Mean Platelet Volume 7.9; Platelet Count 481 k/uL (150-450); Poikilocytosis Slight; RBC 3.33 m/uL (3.80-5.40); RDW 17.2 % (11.5-15.5); WBC 11.3 k/uL (3.8-10.6)
[2020-09-11 10:14] LABS: ALT 16 U/L (4-34); AST 22 U/L (14-36); African American GFR (CKD) >90 (>60 ml/min/1.73 sqM); Albumin 2.8 g/dL (3.5-5.0); Albumin/Globulin Ratio 0.8; Alkaline Phosphatase 79 U/L (38-126); Anion Gap 7 mmol/L; Blood Urea Nitrogen 10 mg/dL (7-17); Calcium 8.7 mg/dL (8.4-10.2); Carbon Dioxide 22 mmol/L (22-30); Chloride 106 mmol/L (98-107); Globulin 3.4 g/dL; Glucose 104 mg/dL (74-99); Non-African American GFR(CKD) 83 (>60 ml/min/1.73 sqM); Potassium 4.6 mmol/L (3.5-5.1); Sodium 135 mmol/L (137-145); Total Bilirubin 0.5 mg/dL (0.2-1.3); Total Protein 6.2 g/dL (6.3-8.2)
[2020-09-11 11:10] LABS: Glucose,Whole Blood 150 mg/dL (75-99)
[2020-09-11 11:17] LABS: Appearance,Urine Cloudy (Clear); Bacteria,Urine Many /hpf; Bilirubin,Urine Negative (Negative); Blood,Urine Negative (Negative); Color,Urine Yellow; Glucose,Urine (UA) Negative (Negative); Ketones,Urine Negative (Negative); Leukocyte Esterase,Urine Small (Negative); Nitrite,Urine Negative (Negative); PH, Urine 5.5 (5.0-8.0); Protein,Urine Negative (Negative); RBC,Urine 1 /hpf (0-5); Specific Gravity,Urine 1.012 (1.001-1.035); Urobilinogen,Urine <2.0 mg/dL (<2.0); WBC,Urine 6 /hpf (0-5)
[2020-09-11] MEDS: EZETIMIBE 10 MG TAB PO SCH (13:07)
--- NOTE | 2020-09-11 14:34 | P.PN ---
Subjective Progress Note Date: 09/11/20 HISTORY OF PRESENT ILLNESS This is a 74-year-old female patient of Dr. Jacques recently established with Dr. Yeboah with past medical history of hypertension, hyperlipidemia, diabetes mellitus type II insulin requiring, generalized osteoarthritis, CAD with prior MA in 1991 and anemia with unknown cause. Patient was last hospitalized for Covid pneumonia and UTI. Patient states that she was doing well recently except she is mostly wheelchair/bed bound. She has decubitus ulcers to the coccyx. Patient states that she has diarrhea but denies any black stools. Her primary care doctor increased her iron this weekend to twice daily. She had blood work done as an outpatient and was contacted regarding a hemoglobin of 5.9 instructed to come in the hospital. Patient states she has never had a colonoscopy. Patient came into [facility] emergency center for evaluation. She was afebrile, heart rate 96, blood pressure 109/47, pulse ox 99% on room air. WBC 10.1, hemoglobin 6.4, platelet count 537. Reticulocyte count 3.1. INR 1. Sodium 135, potassium 5, chloride 108, CO2 21, BUN 30, creatinine 0.86. Liver function tests normal. Transfusion was ordered and patient admitted to the cardiac stepdown unit and consult requested with GI. Also consult in place for Wound Center evaluation. 09/10: Patient was seen by GI with plan for EGD and colonoscopy today. Patient states that she was on and off the bedpan all during the night and strained her right shoulder. Tylenol 3 added for pain. Repeat hemoglobin is 8.1 following 2 units packed RBCs. Patient is asking and requesting to go home today if possible. We will plan to follow up on EGD and colonoscopy later today and if possible, discharge home. 09/11: EGD revealed 2 subcentimeter nonbleeding duodenal ulcers without high risk stigmata for bleeding, biopsy. Mild gastritis antrum body, biopsy. Duodenal biopsies. Mild left colonic diverticulosis. Low-grade internal hemorrhoids. Diminutive rectal polyp removed. Patient seen this morning and is very lethargic with mental status changes. CAT scan of the brain ordered which revealed with mild ventriculomegaly probably due to central cerebral atrophy. Correlate to exclude component of NPH. Prominent dental aortogram artifact o bscuring most of the cerebellum. Mild to moderate burden of chronic small vessel ischemic disease. No acute intracranial abnormality. Chest x-ray reveals low lung volumes without acute infiltrate. Repeat hemoglobin 8.5, WBC 11.3. Sodium 135, potassium 4.6, creatinine 0.71. Blood sugar 104 this morning. Urinalysis colony with leukoesterase small, WBC 6 and bacteria many. REVIEW OF SYSTEMS Unable to obtain due to mental status changes PHYSICAL EXAMINATION Gen: This is a 74-year-old morbidly obese female. She is resting in bed in no acute distress. HEENT: Head is atraumatic, normocephalic. Pupils equal, round. Sclerae is anic teric. NECK: Supple. No JVD. No lymphadenopathy. No thyromegaly. LUNGS: Diminished to the base. No intercostal retractions. HEART: Regular rate and rhythm. Systolic murmur. ABDOMEN: Soft. Bowel sounds are present. No masses. No tenderness. No abdominal tenderness. COCCYX: 2 x 2 second degree pressure ulcer on the right and 1 x 2 on the left. Please see nursing documentation for details EXTREMITIES: Trace bilateral pedal edema. Right foot drop. Decreased range of motion to the right shoulder. NEUROLOGICAL: Patient is minimally responsive to verbal stimuli, and immediately closes eyes. Unable to follow commands. ASSESSMENT AND PLAN 1. Acute blood loss anemia and anemia of chronic disease status post transfusion 2 units of packed RBCs. Status post Ferrlecit 3 doses. Consult with GI appreciated status post EGD and colonoscopy. 2. Recent hospitalization for Covid pneumonitis. Stable. 3. Decubitus ulcer coccyx, present on admission. Wound care consult. 4. History of coronary artery disease and MA in the past. Hold aspirin 81 mg daily, continue Lipitor 20 mg every 48 hours, Lopressor, Imdur 60 mg twice daily. 5. Hypertension. Continue Lopressor 75 mg daily, Norvasc 5 mg at bedtime on hold. 6. Hyperlipidemia. Continue atorvastatin. 7. Diabetes mellitus type 2. Hold metformin 1000 mg twice daily and Actos. Continue Levemir 10 units at bedtime and NovoLog scale. 8. Generalized osteoarthritis. Continue gabapentin, vitamin B12. 9. Acute metabolic encephalopathy of unclear etiology. Chest x-ray, CAT scan of the brain, UA and culture, consult with neurology. 10. Possible NPH. Patient will need follow-up with neurology as an outpatient. 11. GI prophylaxis. Protonix 40 mg IV daily. DISCHARGE PLAN Most likely return home with homecare. Impression and plan of care have been directed as dictated by the signing physician. Katie James nurse practitioner acting as scribe for signing ph ysician. Objective - Vital Signs Vital signs: Vital Signs Temp 99.2 F 09/11/20 07:02 Pulse 94 09/11/20 07:02 Resp 17 09/11/20 07:02 BP 140/74 09/11/20 07:02 Pulse Ox 95 09/11/20 07:02 Intake & Output 09/10/20 09/11/20 09/11/20 18:59 06:59 18:59 Intake Total 425 Output Total 150 Balance 425 -150 Weight 131 kg Intake: IV 300 Oral 125 Output: Urine 150 Other: # Bowel Movements 5 - Labs CBC & Chem 7: 09/11/20 09:20 09/11/20 09:20 Labs: Abnormal Lab Results - Last 24 Hours (Table) 09/10/20 09/10/20 09/11/20 Range/Units 16:24 21:18 07:32 WBC 12.6 H (3.8-10.6) k/uL RBC 3.29 L (3.80-5.40) m/uL Hgb 8.7 L (11.4-16.0) gm/dL Hct 27.2 L (34.0-46.0) % RDW 16.9 H (11.5-15.5) % Plt Count 472 H (150-450) k/uL POC Glucose (mg/dL) 168 H 108 H (75-99) mg/dL
[2020-09-11 17:10] LABS: Glucose,Whole Blood 182 mg/dL (75-99)
--- NOTE | 2020-09-11 17:52 | P.PN ---
Subjective Progress Note Date: 09/11/20 Principal diagnosis: Anemia This is a late entry patient was seen at approximately 10 AM this morning. She was without any complaints of any abdominal pain, nausea, or vomiting. She states she has not had any bowel movements and has not had any rectal bleeding. She is tolerating a consistent carbohydrate diet. She is status post upper endoscopy and colonoscopy yesterday with findings of 2 subcentimeter nonbleeding duodenal ulcers without high risk stigmata for bleeding. There is mild gastritis in the antrum and body. Biopsies were taken. Colonoscopy revealed left colonic diverticulosis, low-grade internal hemorrhoids, and a diminutive rectal polyp with polypectomy. Today's hemoglobin stable at 8.5. She is getting IV iron 3 doses. Objective - Vital Signs Vital signs: Vital Signs Temp 98 F 09/11/20 12:57 Pulse 76 09/11/20 12:57 Resp 16 09/11/20 12:57 BP 108/64 09/11/20 12:57 Pulse Ox 95 09/11/20 12:57 Intake & Output 09/10/20 09/11/20 09/11/20 18:59 06:59 18:59 Intake Total 425 100 Output Total 150 400 Balance 425 -150 -300 Weight 131 kg Intake: IV 300 Intake, IV Titration 100 Amount Sodium Ferric Gluconat- 100 Sucrose 125 mg In Sodium Chloride 0.9% 100 ml @ 100 mls/hr IVPB DAILY [facility] Rx#:[id number] Oral 125 Output: Urine 150 400 Other: Voiding Method External Catheter # Bowel Movements 5 - Exam General appearance: The patient is alert, oriented, appears in no acute distress. Obese. HET: Head is normocephalic and atraumatic. Conjunctiva pink. Sclera anicteric. Neck: Supple without lymphadenopathy. Abdomen: Soft, obese, nontender, nondistended with bowel sounds. No guarding or rigidity. Extremities: Normal skin color and turgor. No pedal edema Neurological: No focal deficits. Alert and oriented 3. - Labs CBC & Chem 7: 09/11/20 09:20 09/11/20 09:20 Labs: Abnormal Lab Results - Last 24 Hours (Table) 09/10/20 09/11/20 09/11/20 Range/Units 21:18 07:32 09:20 WBC 11.3 H (3.8-10.6) k/uL RBC 3.33 L (3.80-5.40) m/uL Hgb 8.5 L (11.4-16.0) gm/dL Hct 27.7 L (34.0-46.0) % MCHC 30.6 L (31.0-37.0) g/dL RDW 17.2 H (11.5-15.5) % Plt Count 481 H (150-450) k/uL Sodium (137-145) mmol/L Glucose (74-99) mg/dL POC Glucose (mg/dL) 168 H 108 H (75-99) mg/dL Total Protein (6.3-8.2) g/dL Albumin (3.5-5.0) g/dL Urine Appearance (Clear) Ur Leukocyte Esterase (Negative) Urine WBC (0-5) /hpf Urine Bacteria (None) /hpf 09/11/20 09/11/20 09/11/20 Range/Units 09:20 10:57 11:09 WBC (3.8-10.6) k/uL RBC (3.80-5.40) m/uL Hgb (11.4-16.0) gm/dL Hct (34.0-46.0) % MCHC (31.0-37.0) g/dL RDW (11.5-15.5) % Plt Count (150-450) k/uL Sodium 135 L (137-145) mmol/L Glucose 104 H (74-99) mg/dL POC Glucose (mg/dL) 150 H (75-99) mg/dL Total Protein 6.2 L (6.3-8.2) g/dL Albumin 2.8 L (3.5-5.0) g/dL Urine Appearance Cloudy H (Clear) Ur Leukocyte Esterase Small H (Negative) Urine WBC 6 H (0-5) /hpf Urine Bacteria Many H (None) /hpf 09/11/20 Range/Units 17:09 WBC (3.8-10.6) k/uL RBC (3.80-5.40) m/uL Hgb (11.4-16.0) gm/dL Hct (34.0-46.0) % MCHC (31.0-37.0) g/dL RDW (11.5-15.5) % Plt Count (150-450) k/uL Sodium (137-145) mmol/L Glucose (74-99) mg/dL POC Glucose (mg/dL) 182 H (75-99) mg/dL Total Protein (6.3-8.2) g/dL Albumin (3.5-5.0) g/dL Urine Appearance (Clear) Ur Leukocyte Esterase (Negative) Urine WBC (0-5) /hpf Urine Bacteria (None) /hpf Assessment and Plan (1) Iron deficiency anemia Narrative/Plan: 74-year-old female with multiple medical comorbidities including a known history of anemia who presented to the hospital for evaluation of abnormal outpatient laboratory draw with worsening anemia. Patient had been on oral iron in the outpatient setting however on presentation to the hospital the patient found to have a significant anemia with hemoglobin of 6.4 with iron studies performed significant for a severe iron deficiency. The patient denies any signs or symptoms of GI bleeding with no hematemesis, coffee-ground emesis, melena or hematochezia. No abdominal pain reported. She denies any change in bowel habits does report some diarrhea baseline. No prior endoscopic evaluation with EGD or colonoscopy, although the patient reports that her primary care physician has been asking her to perform the procedures and that she has delayed having that done. Unclear etiology, may be related to peptic ulcer disease, AVM, severe gastritis/esophagitis, malignancy or other etiology. Patient is status post upper endoscopy and colonoscopy. Upper endoscopy with findings of 2 subcentimeter nonbleeding duodenal servers without high risk stigmata for bleeding, mild gastritis antrum and body. Colonoscopy revealed mild left colonic diverticulosis with low-grade internal hemorrhoids and a diminutive rectal polyp removed with cold snare. Current Visit: Yes Status: Acute Code(s): D50.9 - IRON DEFICIENCY ANEMIA, UNSPECIFIED SNOMED Code(s): 46926498 Plan: Supportive care Consistent carbohydrate diet Continue to monitor hemoglobin and hematocrit and transfuse as needed laboratory evaluation with iron studies Anemia laboratory evaluation ordered Oral iron stopped and IV iron ordered for 3 doses, can resume oral iron after she receives parenteral iron Patient is supposed upper endoscopy and colonoscopy Wound care consulted Thank you for allowing us to participate in the care of the patient, we will continue to follow Dr. Eden I agree with the dictator's note, documented as a scribe by Zuly Perez.
[2020-09-11 22:30] LABS: Glucose,Whole Blood 215 mg/dL (75-99)
[2020-09-11] MEDS: INSULIN DETEMIR (LEVEMIR) 100 UNIT/ML SYR SQ SCH (22:30)
[2020-09-11] MEDS: NON FORMULARY DRUG (Acetaminophen/Diphenhydramine [Tylenol Pm 500-25mg] 1 EACH Tablet) PO SCH (22:30)
[2020-09-11] MEDS: CALCIUM CARB-VIT D 500 MG-5 MCG TAB PO SCH (22:30)
[2020-09-12 01:22] VITALS: TEMP 97.9
[2020-09-12] MEDS: ACETAMINOPHEN TAB 500 MG TAB PO PRN (05:58)
[2020-09-12 07:10] LABS: Anisocytosis Slight; HCT 26.9 % (34.0-46.0); HGB 8.3 gm/dL (11.4-16.0); Hypochromasia Marked; MCH 26.3 pg (25.0-35.0); MCV 84.9 fL (80.0-100.0); Mean Platelet Volume 7.8; Platelet Count 488 k/uL (150-450); Poikilocytosis Slight; RBC 3.17 m/uL (3.80-5.40); RDW 17.5 % (11.5-15.5); WBC 10.1 k/uL (3.8-10.6)
[2020-09-12 07:36] LABS: Glucose,Whole Blood 96 mg/dL (75-99)
[2020-09-12] MEDS: INSULIN ASPART (NovoLOG) 100 UNIT/ML VIAL SQ SCH (08:04)
[2020-09-12] MEDS: ATORVASTATIN 20 MG TAB PO SCH (08:07)
[2020-09-12] MEDS: METOPROLOL TARTRATE 25 MG TAB PO SCH (08:07)
[2020-09-12] MEDS: MULTIVITAMINS, THERA 1 EACH TAB PO SCH (08:07)
[2020-09-12] MEDS: metFORMIN 500 MG TAB PO SCH (08:07)
[2020-09-12] MEDS: GABAPENTIN 300 MG CAP PO SCH (08:07)
[2020-09-12] MEDS: ASCORBIC ACID 500 MG TAB PO SCH (08:08)
[2020-09-12] MEDS: PANTOPRAZOLE 40 MG/10 ML VIAL IV SCH (08:08)
[2020-09-12] MEDS: ISOSORBIDE MONONITRATE ER 60 MG TAB.ER.24H PO SCH (08:08)
[2020-09-12] MEDS: HYDROPHILIC CREAM 180 GM TUBE TOPICAL SCH (08:09)
--- NOTE | 2020-09-12 08:24 | P.DS ---
Providers Date of admission: 09/09/20 05:01 Expected date of discharge: 09/12/20 Attending physician: Joshua Sawyer Consults: 09/09/20 05:00 Consult Physician Routine Consulting Provider: Baudilio Eden Consult Reason/Comments: gib Do you want consulting provider notified?: Yes Primary care physician: Dariusz WebbGeorgie [facility] Course: HISTORY OF PRESENT ILLNESS This is a 74-year-old female patient of Dr. Jacques recently established with Dr. Yeboah with past medical history of hypertension, hyperlipidemia, diabetes mellitus type II insulin requiring, generalized osteoarthritis, CAD with prior [place] in 1991 and anemia with unknown cause. Patient was last hospitalized for Covid pneumonia and UTI. Patient states that she was doing well recently except she is mostly wheelchair/bed bound. She has decubitus ulcers to the coccyx. Patient states that she has diarrhea but denies any black stools. Her primary care doctor increased her iron this weekend to twice daily. She had blood work done as an outpatient and was contacted regarding a hemoglobin of 5.9 instructed to come in the hospital. Patient states she has never had a colonoscopy. Patient came into [facility] emergency center for evaluation. She was afebrile, heart rate 96, blood pressure 109/47, pulse ox 99% on room air. WBC 10.1, hemoglobin 6.4, platelet count 537. Reticulocyte count 3.1. INR 1. Sodium 135, potassium 5, chloride 108, CO2 21, BUN 30, creatinine 0.86. Liver function tests normal. Transfusion was ordered and patient admitted to the cardiac stepdown unit and consult requested with GI. Also consult in place for Wound Center evaluation. 09/10: Patient was seen by GI with plan for EGD and colonoscopy today. Patient states that she was on and off the bedpan all during the night and strained her right shoulder. Tylenol 3 added for pain. Repeat hemoglobin is 8.1 following 2 units packed RBCs. Patient is asking and requesting to go home today if possible. We will plan to follow up on EGD and colonoscopy later today and if possible, discharge home. 09/11: EGD revealed 2 subcentimeter nonbleeding duodenal ulcers without high risk stigmata for bleeding, biopsy. Mild gastritis antrum body, biopsy. Duodenal biopsies. Mild left colonic diverticulosis. Low-grade internal hemorrhoids. Diminutive rectal polyp removed. Patient seen this morning and is very lethargic with mental status changes. CAT scan of the brain ordered which revealed with mild ventriculomegaly probably due to central cerebral atrophy. Correlate to exclude component of NPH. Prominent dental aortogram artifact obscuring most of the cerebellum. Mild to moderate burden of chronic small vessel ischemic disease. No acute intracranial abnormality. Chest x-ray reveals low lung volumes without acute infiltrate. Repeat hemoglobin 8.5, WBC 11.3. Sodium 135, potassium 4.6, creatinine 0.71. Blood sugar 104 this morning. Urinalysis colony with leukoesterase small, WBC 6 and bacteria many. 09/12: Patient's mental status is back to baseline. Most likely mental status changes were related to Tylenol 3 and medications for procedure. Hemoglobin today is stable at 8.3. WBC 10.1, platelet count 488. Blood sugars are running between 96 and 215. The patient is tolerating diet without any difficulties. No noted black or tarry stools. No diarrhea. Patient will be discharged home today in stable condition. ASSESSMENT AND PLAN 1. Acute blood loss anemia and anemia of chronic disease status post transfusion 2 units of packed RBCs. Status post Ferrlecit 3 doses. Status post EGD and colonoscopy. 2. Recent hospitalization for Covid pneumonitis. 3. Decubitus ulcer coccyx, present on admission. 4. History of coronary artery disease and MN in the past. 5. Hypertension. 6. Hyperlipidemia. 7. Diabetes mellitus type 2. 8. Generalized osteoarthritis. 9. Acute metabolic encephalopathy of unclear etiology. 10. Possible NPH. Patient will need follow-up with neurology as an outpatient. DISCHARGE PLAN Home with [facility]. Impression and plan of care have been directed as dictated by the signing physician. Katie James nurse practitioner acting as scribe for signing physician. Patient Condition at Discharge: Good Plan - Discharge Summary Discharge Rx Participant: No New Discharge Prescriptions: New Pantoprazole Sodium [Protonix] 40 mg PO DAILY #30 tablet. Acetaminophen Tab [Tylenol] 500 mg PO Q6HR PRN tab PRN Reason: Fever And/ Or Pain Diclofenac Sodium Gel [Voltaren Gel] 2 gm TOPICAL QID #1 tube Continue Gabapentin 300 mg PO BID Ezetimibe [Zetia] 10 mg PO Q48H amLODIPine [Norvasc] 5 mg PO BID Pioglitazone HCl [Actos] 15 mg PO DAILY Isosorbide Mononitrate ER [Imdur] 60 mg PO BID Atorvastatin Calcium [Lipitor] 20 mg PO Q48H Ascorbic Acid [Vitamin C] 500 mg PO BID Insulin Glargine [Lantus] 10 unit SQ HS Calcium Carb-Vit D 500Mg-200Un [Oscal 500+D] 1 tab PO HS INSULIN LISPRO (humaLOG) [humaLOG] 8 units SQ BID@0900,1800 Multivitamins, Thera [Multivitamin (formulary)] 1 tab PO DAILY Cranberry Concentrate 300mg 1 tab PO BID Ergocalciferol [Vitamin D2 (DRISDOL)] 50,000 unit PO TU metFORMIN HCL [Glucophage] 1,000 mg PO BID Ferrous Sulfate [Iron (65 MG Elemental)] 325 mg PO BID Nitroglycerin Sl Tabs [Nitrostat] 0.4 mg SUBLINGUAL Q5M PRN #25 tab PRN Reason: Chest Pain INSULIN LISPRO (humaLOG) [humaLOG] 6 units SQ AC-LUNCH Lysine HCl [l-Lysine] 1,000 mg PO W/LUNCH Acetaminophen/Diphenhydramine [Tylenol PM 500-25mg] 1 tab PO HS Isosorbide Mononitrate ER [Imdur] 60 mg PO BID Metoprolol Tartrate [Lopressor] 75 mg PO QAM Discontinued Diclofenac Sodium/Misoprostol [Diclofenac-Misoprost 75-200 Tb] 1 tab PO TID PRN PRN Reason: Pain Discharge Medication List Ascorbic Acid [Vitamin C] 500 mg PO BID 08/21/15 [History] Atorvastatin Calcium [Lipitor] 20 mg PO Q48H 08/21/15 [History] Ezetimibe [Zetia] 10 mg PO Q48H 08/21/15 [History] Gabapentin 300 mg PO BID 08/21/15 [History] Isosorbide Mononitrate ER [Imdur] 60 mg PO BID 08/21/15 [History] Pioglitazone HCl [Actos] 15 mg PO DAILY 08/21/15 [History] amLODIPine [Norvasc] 5 mg PO BID 08/21/15 [History] Calcium Carb-Vit D 500Mg-200Un [Oscal 500+D] 1 tab PO HS 06/01/16 [History] INSULIN LISPRO (humaLOG) [humaLOG] 8 units SQ BID@0900,1800 10/04/16 [History] Insulin Glargine [Lantus] 10 unit SQ HS 06/01/16 [History] Multivitamins, Thera [Multivitamin (formulary)] 1 tab PO DAILY 11/17/16 [History] Cranberry Concentrate 300mg 1 tab PO BID 11/04/19 [History] Ergocalciferol [Vitamin D2 (DRISDOL)] 50,000 unit PO TU 11/04/19 [History] Ferrous Sulfate [Iron (65 MG Elemental)] 325 mg PO BID 11/04/19 [History] metFORMIN HCL [Glucophage] 1,000 mg PO BID 11/04/19 [History] Nitroglycerin Sl Tabs [Nitrostat] 0.4 mg SUBLINGUAL Q5M PRN #25 tab 11/06/19 [Rx] INSULIN LISPRO (humaLOG) [humaLOG] 6 units SQ AC-LUNCH 07/06/20 [History] Acetaminophen/Diphenhydramine [Tylenol PM 500-25mg] 1 tab PO HS 09/09/20 [History] Isosorbide Mononitrate ER [Imdur] 60 mg PO BID 09/09/20 [History] Lysine HCl [l-Lysine] 1,000 mg PO W/LUNCH 09/09/20 [History] Metoprolol Tartrate [Lopressor] 75 mg PO QAM 09/09/20 [History] Acetaminophen Tab [Tylenol] 500 mg PO Q6HR PRN tab 09/12/20 [Rx] Diclofenac Sodium Gel [Voltaren Gel] 2 gm TOPICAL QID #1 tube 09/12/20 [Rx] Pantoprazole Sodium [Protonix] 40 mg PO DAILY #30 tablet. 09/12/20 [Rx] Follow up Appointment(s)/Referral(s): Dariusz Jacques DO [Primary Care Provider] - 1-2 days (office will call patient with appt time and date.) [facility] Visiting Nurse, [NON-STAFF] - Baudilio Eden MD [STAFF PHYSICIAN] - 10/01/20 2:00 pm Patient Instructions/Handouts: Pantoprazole (By mouth), Diclofenac (On the skin), Gastrointestinal Bleeding (DC)
[2020-09-12 09:02] VITALS: BP 127/69; PULSE 93; RESP 17
== END 2020-09-12 10:45 | disposition home or self-care (01) | DRG 811 ==
LOC: EC 02:49 → 3SCARD 05:01 → 5NMEDONC 09-11 01:37
PROVIDERS: ADMIT Internal Medicine Geriatric Medicine; ATTEND Internal Medicine Geriatric Medicine
PROC: 30233P1 Transfusion of Nonautologous Frozen Red Cells into Peripheral Vein, Percutaneous Approach (ICD-10-PCS; 2020-09-09)
PROC: 0DB78ZX Excision of Stomach, Pylorus, Via Natural or Artificial Opening Endoscopic, Diagnostic (ICD-10-PCS; principal; 2020-09-10 12:00)
PROC: 0DB68ZX Excision of Stomach, Via Natural or Artificial Opening Endoscopic, Diagnostic (ICD-10-PCS; principal; 2020-09-10 12:00)
PROC: 0DBP8ZX Excision of Rectum, Via Natural or Artificial Opening Endoscopic, Diagnostic (ICD-10-PCS; principal; 2020-09-10 12:00)
PROC: 0DB98ZX Excision of Duodenum, Via Natural or Artificial Opening Endoscopic, Diagnostic (ICD-10-PCS; principal; 2020-09-10 12:00)
DX: D62 Acute posthemorrhagic anemia (principal); G93.41 Metabolic encephalopathy; G91.2 (Idiopathic) normal pressure hydrocephalus; D50.9 Iron deficiency anemia, unspecified; D63.8 Anemia in other chronic diseases classified elsewhere; E11.622 Type 2 diabetes mellitus with other skin ulcer; E66.01 Morbid (severe) obesity due to excess calories; E78.5 Hyperlipidemia, unspecified; H91.90 Unspecified hearing loss, unspecified ear; I10 Essential (primary) hypertension; I25.10 Atherosclerotic heart disease of native coronary artery without angina pectoris; I25.2 Old myocardial infarction; Z86.16 Personal history of COVID-19; Z87.01 Personal history of pneumonia (recurrent); K29.70 Gastritis, unspecified, without bleeding; K57.30 Diverticulosis of large intestine without perforation or abscess without bleeding; K62.1 Rectal polyp; K64.8 Other hemorrhoids; L89.152 Pressure ulcer of sacral region, stage 2; L89.302 Pressure ulcer of unspecified buttock, stage 2; L98.499 Non-pressure chronic ulcer of skin of other sites with unspecified severity; M15.9 Polyosteoarthritis, unspecified; Z87.440 Personal history of urinary (tract) infections; Z74.01 Bed confinement status; Z79.02 Long term (current) use of antithrombotics/antiplatelets; Z79.1 Long term (current) use of non-steroidal anti-inflammatories (NSAID); Z79.4 Long term (current) use of insulin; Z79.82 Long term (current) use of aspirin; Z79.899 Other long term (current) drug therapy; Z80.3 Family history of malignant neoplasm of breast; Z82.3 Family history of stroke; Z82.49 Family history of ischemic heart disease and other diseases of the circulatory system; Z83.3 Family history of diabetes mellitus; Z87.891 Personal history of nicotine dependence; Z90.710 Acquired absence of both cervix and uterus; Z99.3 Dependence on wheelchair; Z88.6 Allergy status to analgesic agent; Z88.1 Allergy status to other antibiotic agents; Z88.5 Allergy status to narcotic agent; Z88.0 Allergy status to penicillin; R19.7 Diarrhea, unspecified
CPT/HCPCS: 36415; 36430; 43239; 45385; 70450; 71045; 80053; 81001; 82607; 82728; 82746; 83540; 83550; 83735; 85025; 85027; 85045; 85610; 85730; 86850; 86900; 86901; 86920; 88305; 88342; 99291

== ENCOUNTER 2020-11-19 06:34 | Observation (INO) | payer MEDICARE ==
[2020-11-19] MEDS ORDERED: HYDROmorphone 1 MG/ML 1 ML SYRINGE IM STA (06:51)
--- NOTE | 2020-11-19 06:54 | ED ---
Lower Extremity Injury HPI - General Chief Complaint: Extremity Injury, Lower Stated Complaint: R Foot Injury Time Seen by Provider: 11/19/20 06:41 Source: patient, EMS, RN notes reviewed Mode of arrival: EMS Limitations: physical limitation - History of Present Illness Initial Comments: This a 75-year-old female presents emergency department via EMS chief complaint right foot and ankle injury. Patient states that she was being transferred off the commode when her foot caught, twisted. Patient states that she has pain diffusely over her right ankle and foot region. Denies any fall, head injury. Patient states the pain is severe at this time denies any recent fractures to her ankle. Patient offers no other complaints. - Related Data Home Medications Medication Instructions Recorded Confirmed Ascorbic Acid [Vitamin C] 500 mg PO BID 08/21/15 09/09/20 Atorvastatin Calcium [Lipitor] 20 mg PO Q48H 08/21/15 09/09/20 Ezetimibe [Zetia] 10 mg PO Q48H 08/21/15 09/09/20 Gabapentin 300 mg PO BID 08/21/15 09/09/20 Isosorbide Mononitrate ER [Imdur] 60 mg PO BID 08/21/15 09/09/20 Pioglitazone HCl [Actos] 15 mg PO DAILY 08/21/15 09/09/20 amLODIPine [Norvasc] 5 mg PO BID 08/21/15 09/09/20 Calcium Carb-Vit D 500Mg-5Mcg 1 tab PO HS 06/01/16 09/09/20 [Oscal 500+D 5 Mcg (200 Iu)] INSULIN LISPRO (humaLOG) [humaLOG] 8 units SQ BID@0900,1800 06/01/16 09/09/20 Insulin Glargine [Lantus] 10 unit SQ HS 06/01/16 09/09/20 Multivitamins, Thera [Multivitamin 1 tab PO DAILY 11/17/16 09/09/20 (formulary)] Cranberry Concentrate 300mg 1 tab PO BID 11/04/19 09/09/20 Ergocalciferol [Vitamin D2 50,000 unit PO TU 11/04/19 09/09/20 (DRISDOL)] Ferrous Sulfate [Iron (65 MG 325 mg PO BID 11/04/19 09/09/20 Elemental)] metFORMIN HCL [Glucophage] 1,000 mg PO BID 11/04/19 09/09/20 INSULIN LISPRO (humaLOG) [humaLOG] 6 units SQ AC-LUNCH 07/06/20 09/09/20 Acetaminophen/Diphenhydramine 1 tab PO HS 09/09/20 09/09/20 [Tylenol PM 500-25mg] Isosorbide Mononitrate ER [Imdur] 60 mg PO BID 09/09/20 09/09/20 Lysine HCl [l-Lysine] 1,000 mg PO W/LUNCH 09/09/20 09/09/20 Metoprolol Tartrate [Lopressor] 75 mg PO QAM 09/09/20 09/09/20 Previous Rx's Medication Instructions Recorded Nitroglycerin Sl Tabs [Nitrostat] 0.4 mg SUBLINGUAL Q5M PRN #25 tab 11/06/19 Acetaminophen Tab [Tylenol] 500 mg PO Q6HR PRN tab 09/12/20 Diclofenac Sodium Gel [Voltaren 2 gm TOPICAL QID #1 tube 09/12/20 Gel] Pantoprazole Sodium [Protonix] 40 mg PO DAILY #30 tablet. 09/12/20 Allergies Allergy/AdvReac Type Severity Reaction Status Date / Time Penicillins Allergy Rash/Hives Verified 11/19/20 06:45 tobramycin Allergy Rash/Hives Verified 11/19/20 06:45 hydrocodone [From [facility]] AdvReac Severe Diarrhea Verified 11/19/20 06:45 meloxicam [From Mobic] AdvReac Diarrhea Verified 11/19/20 06:45 Review of Systems ROS Statement: Those systems with pertinent positive or pertinent negative responses have been documented in the HPI. ROS Other: All systems not noted in ROS Statement are negative. Past Medical History Past Medical History: Chest Pain / Angina, Diabetes Mellitus, Hearing Disorder / Deafness, Hyperlipidemia, Hypertension, Myocardial Infarction ([place]), Osteoarthritis (OA) Additional Past Medical History / Comment(s): power chair- ambulates only a few feet, swelling of lower leg comes and goes, urinary leakage , neuropathy Last Myocardial Infarction Date:: 1991 History of Any Multi-Drug Resistant Organisms: None Reported Past Surgical History: Appendectomy, Heart Catheterization, Hysterectomy, Orthopedic Surgery, Tonsillectomy Additional Past Surgical History / Comment(s): ki hip replacements, hemorrhoidectomy Past Anesthesia/Blood Transfusion Reactions: Postoperative Nausea & Vomiting (PONV) Past Psychological History: No Psychological Hx Reported Smoking Status: Never smoker Past Alcohol Use History: None Reported Past Drug Use History: None Reported - Past Family History Father Family Medical History: Myocardial Infarction ([place]) Mother Family Medical History: CVA/TIA, Diabetes Mellitus Sister(s) Family Medical History: Cancer General Exam Limitations: no limitations General appearance: alert, in no apparent distress Head exam: Present: atraumatic, normocephalic, normal inspection Eye exam: Present: normal appearance, PERRL, EOMI. Absent: scleral icterus, conjunctival injection, periorbital swelling ENT exam: Present: normal exam, normal oropharynx, mucous membranes moist Neck exam: Present: normal inspection. Absent: tenderness, meningismus, lymphadenopathy Respiratory exam: Present: normal lung sounds bilaterally. Absent: respiratory distress, wheezes, rales, rhonchi, stridor Cardiovascular Exam: Present: regular rate, normal rhythm, normal heart sounds. Absent: systolic murmur, diastolic murmur, rubs, gallop, clicks Extremities exam: Present: other (Moderate swelling the right ankle ecchymosis noted, diffuse tenderness of the foot and ankle are neurovascular intact) Neurological exam: Present: alert, oriented X3 Course Vital Signs 11/19/20 11/19/20 06:36 08:08 Temperature 98.1 F Pulse Rate 95 94 Respiratory 18 18 Rate Blood Pressure 111/51 121/49 O2 Sat by Pulse 98 94 L Oximetry Medical Decision Making - Medical Decision Making X-ray shows distal fibular fracture and metatarsal fracture. She will be placed in the short leg splint and follow-up orthopedics. Patient is essentially nonweightbearing prior to this injury. I did update family in the room who states that she has multiple health problems that they are unable to care for and they're requesting admission for long-term rehab, residential care. Patient will be admitted for placement Disposition Clinical Impression: Closed fracture of right distal fibula, Fracture of metatarsal of right foot, closed, Inability to perform activities of daily living, Failure to thrive Disposition: ADMITTED IP TO THIS [facility] Condition: Fair Additional Instructions: Please return to the Emergency Department if symptoms worsen or any other concerns. Is patient prescribed a controlled substance at d/c from ED?: No Referrals: Dariusz Jacques DO [Primary Care Provider] - 1-2 days Hang Shepard DO [Doctor of Osteopathic Medicine] - 1-2 days Time of Disposition: 07:52
--- NOTE | 2020-11-19 07:34 | XR ---
EXAMINATION TYPE: XR ankle limited RT DATE OF EXAM: 11/19/2020 COMPARISON: None HISTORY: Fall, pain TECHNIQUE: 2 view right ankle. Positioning limits the exam. FINDINGS: There is prominent soft tissue swelling over the anterior ankle there is an oblique fractur e of the distal metaphyseal fibula. Ankle mortise is not well visualized. Calcaneal heel spurs are pr esent. Vascular calcification is present. Degenerative changes of the talotibial junction appears to be present. Avulsion inferior to the navicular is not excluded. IMPRESSION: 1. Oblique fracture distal fibula. 2. An avulsion in the region of the navicular and lateral projections is not excluded. 3. There is some limitation due to patient positioning. 4. Calcaneal spurs
--- NOTE | 2020-11-19 07:38 | XR ---
EXAMINATION TYPE: XR foot limited RT DATE OF EXAM: 11/19/2020 COMPARISON: Right ankle same date HISTORY: Pain fell TECHNIQUE: 2V right foot FINDINGS: There is prominent soft tissue swelling over the ankle. Patient's oblique fracture of the d istal fibula is partially visualized. There is limitation due to patient positioning. There is ossification inferior to the medial malleolu s. Avulsion should be considered. There is disruption of the cortex of the first digit inferiorly marilu picious for an additional fracture. Diffuse soft tissue swelling over the foot is present. Hemarthros is are present. Hallux valgus deformity is evident. IMPRESSION: 1. Distal metaphyseal fibular fracture. 2. Fracture of the inferior first metatarsal. 3. Exam is limited due to patient positioning. However, an avulsion medial malleolus be considered. 4. Diffuse soft tissue swelling over the ankle and foot. 5. Calcaneal heel spurs
[2020-11-19] MEDS ORDERED: ONDANSETRON 4 MG/2 ML VIAL IVP PRN (08:14)
[2020-11-19] MEDS ORDERED: NALOXONE 0.4 MG/ML 1 ML VIAL IV PRN ×2 (08:14→10:58)
[2020-11-19] MEDS ORDERED: Acetaminophen-Codeine 300-30mg TAB PO PRN (08:14)
[2020-11-19 09:05] LABS: Anisocytosis Slight; Basophils % (A) 0 %; Eosinophils # (A) 0.7 k/uL (0-0.7); Eosinophils % (A) 3 %; HCT 26.7 % (34.0-46.0); HGB 8.4 gm/dL (11.4-16.0); Hypochromasia Marked; Lymphocytes # (A) 0.6 k/uL (1.0-4.8); Lymphocytes % (A) 2 %; MCH 26.3 pg (25.0-35.0); MCHC 31.6 g/dL (31.0-37.0); MCV 83.3 fL (80.0-100.0); Mean Platelet Volume 8.3; Monocytes # (A) 0.5 k/uL (0-1.0); Monocytes % (A) 2 %; Neutrophils # (A) 21.7 k/uL (1.3-7.7); Neutrophils % (A) 92 %; Platelet Count 471 k/uL (150-450); RDW 17.5 % (11.5-15.5); WBC 23.5 k/uL (3.8-10.6)
[2020-11-19 09:17] LABS: Albumin 2.8 g/dL (3.5-5.0); Calcium 8.8 mg/dL (8.4-10.2); Magnesium 1.5 mg/dL (1.6-2.3); Potassium 4.7 mmol/L (3.5-5.1); Total Bilirubin 0.4 mg/dL (0.2-1.3); Total Protein 6.1 g/dL (6.3-8.2)
[2020-11-19 10:17] LABS: Glucose,Whole Blood 136 mg/dL (75-99)
[2020-11-19] MEDS ORDERED: bisacodyL 5 MG TABLET.DR PO PRN (10:58)
[2020-11-19] MEDS ORDERED: DOCUSATE 100 MG CAP PO PRN (10:58)
[2020-11-19] MEDS: MORPHINE SULFATE 4 MG/ML SYRINGE IV PRN ×2 (11:47→22:02)
--- NOTE | 2020-11-19 16:22 | P.HPIM ---
History of Present Illness H&P Date: 11/19/20 Chief Complaint: right foot pain 75 year old woman with PUD, CAD, DM/HTN,HLD, diabetic neuropathy, KYLER s/p recent GI bleed, pressure ulcers, osteopenia presented after mechanical fall resulted in right foot pain. Patient and are at bedside and provide the history. Patient says that she tripped while trying to transfer from bed to chair, and fell onto her right foot and immediately felt something snap with sudden onset pain. She was brought to the hospital where X-ray uncovered right metatarsal and fibular fracture. Patients ROS is otherwise positive for limited mobility at home and limited exercise tolerance, but negative for fevers, chills, nausea, vomiting, constipation, diarrhea, CP, palps, syncope, cough, dyspnea, abd pain, dysuria, dyschezia, numbness/weakness of extremities beyond baseline. Review of Systems All Systems reviewed and pertinent positives and negatives noted in HPI, all other symptoms are negative Past Medical History Past Medical History: Chest Pain / Angina, Diabetes Mellitus, Hearing Disorder / Deafness, Hyperlipidemia, Hypertension, Myocardial Infarction ([place]), Osteoarthritis (OA) Additional Past Medical History / Comment(s): power chair- ambulates only a few feet, swelling of lower leg comes and goes, urinary leakage , neuropathy Last Myocardial Infarction Date:: 1991 History of Any Multi-Drug Resistant Organisms: None Reported Past Surgical History: Appendectomy, Heart Catheterization, Hysterectomy, Orthopedic Surgery, Tonsillectomy Additional Past Surgical History / Comment(s): ki hip replacements, hemorrhoidectomy Past Anesthesia/Blood Transfusion Reactions: Postoperative Nausea & Vomiting (PONV) Past Psychological History: No Psychological Hx Reported Smoking Status: Never smoker Past Alcohol Use History: None Reported Past Drug Use History: None Reported - Past Family History Father Family Medical History: Myocardial Infarction ([place]) Mother Family Medical History: CVA/TIA, Diabetes Mellitus Sister(s) Family Medical History: Cancer Medications and Allergies Home Medications Medication Instructions Recorded Confirmed Type Ascorbic Acid [Vitamin C] 500 mg PO BID 08/21/15 11/19/20 History Atorvastatin Calcium [Lipitor] 20 mg PO Q48H 08/21/15 11/19/20 History Ezetimibe [Zetia] 10 mg PO Q48H 08/21/15 11/19/20 History Gabapentin 300 mg PO BID@1800,2100 08/21/15 11/19/20 History Pioglitazone HCl [Actos] 15 mg PO DAILY 08/21/15 11/19/20 History amLODIPine [Norvasc] 5 mg PO BID 08/21/15 11/19/20 History Calcium Carb-Vit D 500Mg-5Mcg 1 tab PO HS 06/01/16 11/19/20 History [Oscal 500+D 5 Mcg (200 Iu)] INSULIN LISPRO (humaLOG) [humaLOG] 9 units SQ BID@0900,1800 06/01/16 11/19/20 History Insulin Glargine [Lantus] 10 unit SQ HS 06/01/16 11/19/20 History Multivitamins, Thera [Multivitamin 1 tab PO DAILY 11/17/16 11/19/20 History (formulary)] Cranberry Concentrate 300mg 300 mg PO BID 11/04/19 11/19/20 History Ergocalciferol [Vitamin D2 50,000 unit PO TU 11/04/19 11/19/20 History (DRISDOL)] Ferrous Sulfate [Iron (65 MG 325 mg PO BID 11/04/19 11/19/20 History Elemental)] metFORMIN HCL [Glucophage] 1,000 mg PO BID-W/MEALS 11/04/19 11/19/20 History Nitroglycerin Sl Tabs [Nitrostat] 0.4 mg SUBLINGUAL Q5M PRN #25 tab 11/06/19 11/19/20 Rx INSULIN LISPRO (humaLOG) [humaLOG] 8 units SQ AC-LUNCH 07/06/20 11/19/20 History Acetaminophen/Diphenhydramine 1 tab PO HS 09/09/20 11/19/20 History [Tylenol PM 500-25mg] Isosorbide Mononitrate ER [Imdur] 60 mg PO BID 09/09/20 11/19/20 History Lysine HCl [l-Lysine] 1,000 mg PO W/LUNCH 09/09/20 11/19/20 History Metoprolol Tartrate [Lopressor] 75 mg PO QAM 09/09/20 11/19/20 History Diclofenac Sodium Gel [Voltaren 2 gm TOPICAL QID #1 tube 09/12/20 11/19/20 Rx Gel] Aspirin 81 mg PO HS 11/19/20 11/19/20 History Allergies Allergy/AdvReac Type Severity Reaction Status Date / Time Penicillins Allergy Rash/Hives Verified 11/19/20 09:07 tobramycin Allergy Rash/Hives Verified 11/19/20 09:07 hydrocodone [From [place]] AdvReac Severe Diarrhea Verified 11/19/20 09:07 meloxicam [From Mobic] AdvReac Diarrhea Verified 11/19/20 09:07 Physical Exam Osteopathic Statement: *. No significant issues noted on an osteopathic str uctural exam other than those noted in the History and Physical/Consult. Vitals: Vital Signs Temp Pulse Resp BP Pulse Ox 11/19/20 15:59 77 18 138/56 97 11/19/20 08:08 94 18 121/49 94 L 11/19/20 06:36 98.1 F 95 18 111/51 98 Intake and Output 11/19/20 11/19/20 11/19/20 06:59 14:59 22:59 Other: Weight 113.398 kg Gen: awake, alert HEENT: normocephalic, atraumatic, good hearing acuity, moist mucous membranes Resp: good air exchange, breathing comfortably with no accessory muscle use, clear to auscultation bilaterally without wheezes or crackles CVS: good distal perfusion x 4, regular rate and rhythm without murmurs GI: soft, NTTP, ND, appropriate bowel sounds : no SPT, no CVAT, kat catheter not present MSK: no pitting edema, no clubbing, right leg and Doron wrap Neuro: non-focal, moving all extremities Psych: cooperative, euthymic mood Results CBC & Chem 7: 11/19/20 08:48 11/19/20 08:48 Labs: Abnormal Lab Results - Last 24 Hours (Table) 11/19/20 11/19/20 11/19/20 Range/Units 08:48 08:48 10:15 WBC 23.5 H (3.8-10.6) k/uL RBC 3.20 L (3.80-5.40) m/uL Hgb 8.4 L (11.4-16.0) gm/dL Hct 26.7 L (34.0-46.0) % RDW 17.5 H (11.5-15.5) % Plt Count 471 H (150-450) k/uL Neutrophils # 21.7 H (1.3-7.7) k/uL Lymphocytes # 0.6 L (1.0-4.8) k/uL Sodium 135 L (137-145) mmol/L Chloride 108 H (98-107) mmol/L BUN 25 H (7-17) mg/dL Glucose 138 H (74-99) mg/dL POC Glucose (mg/dL) 136 H (75-99) mg/dL Magnesium 1.5 L (1.6-2.3) mg/dL Total Protein 6.1 L (6.3-8.2) g/dL Albumin 2.8 L (3.5-5.0) g/dL Assessment and Plan Assessment: Right Fibular and Metatarsal Fractures Impaired Mobility at Home Obesity, BMI 42.9 - ortho consult - PT/OT - patient will likely benefit from cast - patient and family considering options of SNF for short term rehab prior to return home versus home with home hospice - pain control - bowel regimen DM with diabetic neuropathy - ACHS glucose checks - LD SSI + 9U lispro qAC Breakfast and Dinner + 8U qAC-lunch + levemir 10U qHS - hold home pioglitazone and metformin - continue home GABApentin CAD HLD HTN - continue metoprolol - continue amlodipine - continue imdur - continue atorvastatin - continue ASA DNR/DNI heparin 5000U TID for DVT PPx Dispo: SNF for rehab vs Home with home PT/OT vs Home with hospice
[2020-11-19] MEDS ORDERED: EZETIMIBE 10 MG TAB PO SCH (16:30)
[2020-11-19] MEDS ORDERED: ATORVASTATIN 20 MG TAB PO SCH (16:30)
[2020-11-19] MEDS: HEPARIN SODIUM,PORCINE 5,000 UNIT/ML 1 ML VIAL SQ SCH (17:28)
[2020-11-19 17:41] LABS: Glucose,Whole Blood 184 mg/dL (75-99)
[2020-11-19] MEDS: INSULIN ASPART (NovoLOG) 100 UNIT/ML VIAL SQ SCH (18:40)
[2020-11-19] MEDS: DICLOFENAC SODIUM GEL 100 GM TUBE TOPICAL SCH ×2 (18:43→22:15)
[2020-11-19] MEDS: GABAPENTIN 300 MG CAP PO SCH ×2 (18:43→22:01)
[2020-11-19] MEDS ORDERED: ASPIRIN 81 MG PO SCH (21:00)
[2020-11-19] MEDS ORDERED: INSULIN DETEMIR (LEVEMIR) 100 UNIT/ML SYR SQ SCH (21:00)
[2020-11-19] MEDS ORDERED: CALCIUM CARB-VIT D 500 MG-5 MCG TAB PO SCH (21:00)
[2020-11-19] MEDS ORDERED: diphenhydrAMINE 25 MG CAP PO SCH (21:00)
[2020-11-19 21:59] LABS: Glucose,Whole Blood 97 mg/dL (75-99)
[2020-11-19] MEDS: amLODIPine 5 MG TAB PO SCH (22:00)
[2020-11-19] MEDS: ASCORBIC ACID 500 MG TAB PO SCH (22:00)
[2020-11-19] MEDS: ISOSORBIDE MONONITRATE ER 60 MG TAB.ER.24H PO SCH (22:00)
[2020-11-19] MEDS: FERROUS SULFATE 325 MG TAB PO SCH (22:01)
[2020-11-20] MEDS: HEPARIN SODIUM,PORCINE 5,000 UNIT/ML 1 ML VIAL SQ SCH ×3 (00:12→15:54)
[2020-11-20] MEDS: ACETAMINOPHEN TAB 325 MG TAB PO PRN ×3 (00:13→12:53)
[2020-11-20] MEDS ORDERED: MELATONIN 5 MG TABLET PO PRN (01:47)
[2020-11-20] MEDS: MORPHINE SULFATE 4 MG/ML SYRINGE IV PRN ×4 (03:26→17:43)
[2020-11-20 08:53] LABS: Glucose,Whole Blood 90 mg/dL (75-99)
--- NOTE | 2020-11-20 08:56 | XR ---
EXAMINATION TYPE: XR chest 1V DATE OF EXAM: 11/20/2020 COMPARISON: 09/11/2020 HISTORY: Hypoxia TECHNIQUE: Single frontal view of the chest is obtained. FINDINGS: Elevated right hemidiaphragm with bibasilar subsegmental consolidation. Tiny effusions. No pneumothorax. Heart size normal. Arthropathy shoulders. Subluxation right humeral. Sclerotic changes appear chronic. IMPRESSION: 1. Reduced inspiration with elevated hemidiaphragms and basilar atelectasis versus infiltrate stable.
[2020-11-20] MEDS ORDERED: METOPROLOL TARTRATE 25 MG TAB PO SCH (09:00)
[2020-11-20] MEDS ORDERED: MULTIVITAMINS, THERA 1 EACH TAB PO SCH (09:00)
[2020-11-20] MEDS: ASCORBIC ACID 500 MG TAB PO SCH (09:14)
[2020-11-20] MEDS: FERROUS SULFATE 325 MG TAB PO SCH (09:14)
[2020-11-20] MEDS: amLODIPine 5 MG TAB PO SCH (09:14)
[2020-11-20] MEDS: ISOSORBIDE MONONITRATE ER 60 MG TAB.ER.24H PO SCH (09:15)
[2020-11-20] MEDS: INSULIN ASPART (NovoLOG) 100 UNIT/ML VIAL SQ SCH ×2 (09:16→17:56)
[2020-11-20] MEDS: DICLOFENAC SODIUM GEL 100 GM TUBE TOPICAL SCH ×3 (09:16→18:04)
[2020-11-20 11:02] LABS: Basophils # (A) 0.03 X 10*3/uL (0.00-0.10); Basophils % (A) 0.2 %; Eosinophils # (A) 0.36 X 10*3/uL (0.04-0.35); Eosinophils % (A) 2.8 %; HCT 25.3 % (37.2-46.3); HGB 7.5 g/dL (12.0-15.0); Lymphocytes # (A) 2.08 X 10*3/uL (0.90-5.00); Lymphocytes % (A) 16.4 %; MCH 24.9 pg (27.0-32.0); MCHC 29.6 g/dL (32.0-37.0); MCV 84.1 fL (80.0-97.0); Mean Platelet Volume 10.1 fL (9.5-12.2); Monocytes # (A) 1.32 X 10*3/uL (0.20-1.00); Monocytes % (A) 10.4 %; Neutrophils # (A) 8.78 X 10*3/uL (1.80-7.70); Neutrophils % (A) 69.3 %; Platelet Count 459 X 10*3/uL (140-440); RBC 3.01 X 10*6/uL (4.10-5.20); RDW 18.2 % (11.5-14.5); WBC 12.68 X 10*3/uL (4.50-10.00)
[2020-11-20 11:25] VITALS: BMI 42.9
[2020-11-20 11:51] LABS: African American GFR (CKD) 96.9 (60.0-200.0); Anion Gap 6.3 mmol/L (4.00-12.00); BUN/Creat Ratio 22.86 Ratio (12.00-20.00); Calcium 8.4 mg/dL (8.7-10.3); Carbon Dioxide 25.7 mmol/L (21.6-31.8); Magnesium 1.6 mg/dL (1.5-2.4); Non-African American GFR(CKD) 83.6 (60.0-200.0); Potassium 4.3 mmol/L (3.5-5.5)
--- NOTE | 2020-11-20 11:58 | P.CNOR ---
History of Present Illness - HPI Consult date: 11/20/20 Consult reason: fracture History of present illness: The patient is a 75-year-old female who seen and examined today at bedside. She is a nonambulator and she has been on a ventilator his past several years. She has history of chronic weakness at her right lower extremity. She says that yesterday she was being helped to get out of bed to have a hospital bed and a Atilio lift and they're helping her get out of bed but she slipped and her foot got caught underneath a couch and she felt a snapping and cracking and has subsequent right ankle pain. She has weakness in that right leg chronically but had acute new pain at her ankle and foot. She denies loss of consciousness. She denies any other injury currently. In consultation regards to her foot and ankle. She denies any chest pain or shortness of breath. Review of Systems As stated per HPI. She is morbidly obese. She is a nonambulator. She requires maximum assist and often a Atilio lift to transfer and change positions. Past Medical History Past Medical History: Chest Pain / Angina, Diabetes Mellitus, Hearing Disorder / Deafness, Hyperlipidemia, Hypertension, Myocardial Infarction ([place]), Osteoarthritis (OA) Additional Past Medical History / Comment(s): power chair- ambulates only a few feet, swelling of lower leg comes and goes, urinary leakage , neuropathy Last Myocardial Infarction Date:: 2020 History of Any Multi-Drug Resistant Organisms: None Reported Past Surgical History: Appendectomy, Heart Catheterization, Hysterectomy, Orthopedic Surgery, Tonsillectomy Additional Past Surgical History / Comment(s): ki hip replacements, hemorrhoi dectomy Past Anesthesia/Blood Transfusion Reactions: Postoperative Nausea & Vomiting (PONV) Past Psychological History: No Psychological Hx Reported Smoking Status: Former smoker Past Alcohol Use History: None Reported Additional Past Alcohol Use History / Comment(s): smoked for 29 years 1ppd, quit november 1991 Past Drug Use History: None Reported - Past Family History Father Family Medical History: Myocardial Infarction ([place]) Mother Family Medical History: CVA/TIA, Diabetes Mellitus Sister(s) Family Medical History: Cancer Medications and Allergies Home Medications Medication Instructions Recorded Confirmed Type Ascorbic Acid [Vitamin C] 500 mg PO BID 08/21/15 11/19/20 History Atorvastatin Calcium [Lipitor] 20 mg PO Q48H 08/21/15 11/19/20 History Ezetimibe [Zetia] 10 mg PO Q48H 08/21/15 11/19/20 History Gabapentin 300 mg PO BID@1800,2100 08/21/15 11/19/20 History Pioglitazone HCl [Actos] 15 mg PO DAILY 08/21/15 11/19/20 History amLODIPine [Norvasc] 5 mg PO BID 08/21/15 11/19/20 History Calcium Carb-Vit D 500Mg-5Mcg 1 tab PO HS 06/01/16 11/19/20 History [Oscal 500+D 5 Mcg (200 Iu)] INSULIN LISPRO (humaLOG) [humaLOG] 9 units SQ BID@0900,1800 06/01/16 11/19/20 History Insulin Glargine [Lantus] 10 unit SQ HS 06/01/16 11/19/20 History Multivitamins, Thera [Multivitamin 1 tab PO DAILY 11/17/16 11/19/20 History (formulary)] Cranberry Concentrate 300mg 300 mg PO BID 11/04/19 11/19/20 History Ergocalciferol [Vitamin D2 50,000 unit PO TU 11/04/19 11/19/20 History (DRISDOL)] Ferrous Sulfate [Iron (65 MG 325 mg PO BID 11/04/19 11/19/20 History Elemental)] metFORMIN HCL [Glucophage] 1,000 mg PO BID-W/MEALS 11/04/19 11/19/20 History Nitroglycerin Sl Tabs [Nitrostat] 0.4 mg SUBLINGUAL Q5M PRN #25 tab 11/06/19 11/19/20 Rx INSULIN LISPRO (humaLOG) [humaLOG] 8 units SQ AC-LUNCH 07/06/20 11/19/20 History Acetaminophen/Diphenhydramine 1 tab PO HS 09/09/20 11/19/20 History [Tylenol PM 500-25mg] Isosorbide Mononitrate ER [Imdur] 60 mg PO BID 09/09/20 11/19/20 History Lysine HCl [l-Lysine] 1,000 mg PO W/LUNCH 09/09/20 11/19/20 History Metoprolol Tartrate [Lopressor] 75 mg PO QAM 09/09/20 11/19/20 History Diclofenac Sodium Gel [Voltaren 2 gm TOPICAL QID #1 tube 09/12/20 11/19/20 Rx Gel] Aspirin 81 mg PO HS 11/19/20 11/19/20 History Allergies Allergy/AdvReac Type Severity Reaction Status Date / Time Penicillins Allergy Rash/Hives Verified 11/19/20 09:07 tobramycin Allergy Rash/Hives Verified 11/19/20 09:07 hydrocodone [From [place]] AdvReac Severe Diarrhea Verified 11/19/20 09:07 meloxicam [From Mobic] AdvReac Diarrhea Verified 11/19/20 09:07 Physical Examination Osteopathic Statement: *. No significant issues noted on an osteopathic structural exam other than those noted in the History and Physical/Consult. - Ankle & Foot right Ankle appearance: swelling (Her right ankle has chronic plantar flexion contracture. Her calf and thigh are soft. She is some small superficial abrasions. She has significant tenderness to palpation at the lateral malleolus and around her great toe. There is some diffuse tenderness over her anterior ankle and medial malleo) Foot appearance: swelling (She has some bruising around her toes and swelling diffusely over the mid foot and ankle. Compartments are soft.) Results - Labs Labs: Abnormal Lab Results - Last 24 Hours (Table) 11/19/20 11/20/20 Range/Units 17:40 08:16 WBC 12.68 H (4.50-10.00) X 10*3/uL RBC 3.01 L (4.10-5.20) X 10*6/uL Hgb 7.5 L (12.0-15.0) g/dL Hct 25.3 L (37.2-46.3) % MCH 24.9 L (27.0-32.0) pg MCHC 29.6 L (32.0-37.0) g/dL RDW 18.2 H (11.5-14.5) % Plt Count 459 H (140-440) X 10*3/uL Immature Gran # 0.11 H (0.00-0.04) X 10*3/uL Neutrophils # 8.78 H (1.80-7.70) X 10*3/uL Monocytes # 1.32 H (0.20-1.00) X 10*3/uL Eosinophils # 0.36 H (0.04-0.35) X 10*3/uL POC Glucose (mg/dL) 184 H (75-99) mg/dL H & H 11/19/20 11/20/20 Range/Units 08:48 08:16 Hgb 8.4 L 7.5 L (11.4-16.0) gm/dL Hct 26.7 L 25.3 L (34.0-46.0) % Result Diagrams: 11/20/20 08:16 11/19/20 08:48 - Diagnostic results Ankle/Foot x-ray: report reviewed, image reviewed (X-rays of her ankle and foot show a minimally displaced distal fibula fracture. She has a flexion plantar contracture. There is a fracture at the base of the first metatarsal which is minimally displaced. She has some overall bone loss. 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 I removed the splint from the emergency room and placed her into a new sugar tong and posterior mold splint. She is unable to get good neutral dorsiflexion. Her compartments are soft. With her nonambulatory status we will have to decide if we should treat this conservatively with casting versus the possibility of open reduction internal fixation. She has not been no and later for several years and her best course may be to continue conservative treatment and allow healing with conservative treatment and casting. I think it is okay for her to be discharged home with her splint intact. I can follow her up in our office in the next 5-7 days for recheck evaluation and repeat x-rays and further decisions on treatment options casting versus surgical. From an orthopedic standpoint is okay for her to be discharged nonweightbearing on the right lower extremity with appropriate assistive devices which she has at home. She should keep the splint intact at all times. She should try to elevate her right lower extremity. She has multiple medical issues and is continue management per the primary service. Time with Patient: Greater than 30
[2020-11-20] MEDS ORDERED: INSULIN ASPART (NovoLOG) 100 UNIT/ML VIAL SQ SCH (12:30)
[2020-11-20 12:34] LABS: Glucose,Whole Blood 82 mg/dL (75-99)
[2020-11-20 14:07] VITALS: BP 116/59; PULSE 83; RESP 18; TEMP 98.6
--- NOTE | 2020-11-20 15:04 | P.DS ---
Providers Date of admission: 11/19/20 08:13 Expected date of discharge: 11/20/20 Attending physician: Leo Alfaro Consults: 11/19/20 08:15 Consult Physician Urgent Consulting Provider: Hang Shepard Consult Reason/Comments: Right foot and ankle fracture Do you want consulting provider notified?: Yes Primary care physician: [facility] Course: 75 year old woman with PUD, CAD, DM/HTN,HLD, diabetic neuropathy, KYLER s/p recent GI bleed, pressure ulcers, osteopenia presented after mechanical fall resulted in right foot pain. Patient and are at bedside and provide the history. Patient says that she tripped while trying to transfer from bed to chair, and fell onto her right foot and immediately felt something snap with sudden onset pain. She was brought to the hospital where X-ray uncovered right metatarsal and fibular fracture. Patients ROS is otherwise positive for limited mobility at home and limited exercise tolerance, but negative for fevers, chills, nausea, vomiting, constipation, diarrhea, CP, palps, syncope, cough, dyspnea, abd pain, dysuria, dyschezia, numbness/weakness of extremities beyond baseline. Right Fibular and Metatarsal Fractures Impaired Mobility at Home Obesity, BMI 42.9 - ortho consult recommended re-splinting and outpatient follow up, arranged for 1 week. - PT/OT did not evaluate due to patient's decision to go home with hospice - patient and family considering options of SNF for short term rehab prior to return home versus home with home hospice, and have chosen home with hospice. DM with diabetic neuropathy - ACHS glucose checks - LD SSI + 9U lispro qAC Breakfast and Dinner + 8U qAC-lunch + levemir 10U qHS - hold home pioglitazone and metformin - continue home GABApentin - no changes to diabetic medications on discharge CAD HLD HTN - continue metoprolol - continue amlodipine - continue imdur - continue atorvastatin - continue ASA - no changes to above medications on discharge DNR/DNI heparin 5000U TID for DVT PPx Dispo: SNF for rehab vs Home with home PT/OT vs Home with hospice; I had a long discussion with patient, , CM, and hospice liaison. I have reservations regarding this patient's understanding of hospice despite her qualifying based on criteria for protein calorie malnutrition given albumin of 2.8 and 20kg weight loss with stage II decubitus ulcers. Mainly, I think this patient does have rehab potential, and would benefit from SNF with subacute rehab; however, patient and insist that their wishes are to go home with hospice. When I probe further what the patient's understanding of hospice is, it is that: "there's the good hospice where they try to make you better, and the bad hospice, and I'm getting the good one." That being said, she does qualify for hospice at home, and her and daughter have been good caretakers for patient's nursing needs, though they need a bit more help. They do not wish to go to a NH at any point. Family and clinical unit coordinator have mentioned that patient does become confused at times, and hospice liaison, who also has worked with her previously from home care side relays to me that patient has not kept up with home PT/OT. Therefore, I am discharging the patient home with home hospice per their wishes. I spent 60 minutes preparing this discharge. Assessment: Gen: awake, alert HEENT: normocephalic, atraumatic, good hearing acuity, moist mucous membranes Resp: good air exchange, breathing comfortably with no accessory muscle use, clear to auscultation bilaterally without wheezes or crackles CVS: good distal perfusion x 4, regular rate and rhythm without murmurs GI: soft, NTTP, ND, appropriate bowel sounds : no SPT, no CVAT, kat catheter not present MSK: no pitting edema, no clubbing, right leg and Doron wrap Neuro: non-focal, moving all extremities Psych: cooperative, euthymic mood Patient Condition at Discharge: Good Plan - Discharge Summary Discharge Rx Participant: No New Discharge Prescriptions: New Acetaminophen Tab [Tylenol] 650 mg PO Q6HR PRN tab PRN Reason: Mild Pain Or Fever > 100.5 Continue Gabapentin 300 mg PO BID@1800,2100 Ezetimibe [Zetia] 10 mg PO Q48H amLODIPine [Norvasc] 5 mg PO BID Pioglitazone HCl [Actos] 15 mg PO DAILY Atorvastatin Calcium [Lipitor] 20 mg PO Q48H Ascorbic Acid [Vitamin C] 500 mg PO BID Insulin Glargine [Lantus] 10 unit SQ HS Calcium Carb-Vit D 500Mg-5Mcg [Oscal 500+D 5 Mcg (200 Iu)] 1 tab PO HS INSULIN LISPRO (humaLOG) [humaLOG] 9 units SQ BID@0900,1800 Multivitamins, Thera [Multivitamin (formulary)] 1 tab PO DAILY Cranberry Concentrate 300mg 300 mg PO BID Ergocalciferol [Vitamin D2 (DRISDOL)] 50,000 unit PO TU metFORMIN HCL [Glucophage] 1,000 mg PO BID-W/MEALS Ferrous Sulfate [Iron (65 MG Elemental)] 325 mg PO BID Nitroglycerin Sl Tabs [Nitrostat] 0.4 mg SUBLINGUAL Q5M PRN #25 tab PRN Reason: Chest Pain INSULIN LISPRO (humaLOG) [humaLOG] 8 units SQ AC-LUNCH Lysine HCl [l-Lysine] 1,000 mg PO W/LUNCH Acetaminophen/Diphenhydramine [Tylenol PM 500-25mg] 1 tab PO HS Isosorbide Mononitrate ER [Imdur] 60 mg PO BID Metoprolol Tartrate [Lopressor] 75 mg PO QAM Diclofenac Sodium Gel [Voltaren Gel] 2 gm TOPICAL QID #1 tube Aspirin 81 mg PO HS Discharge Medication List Ascorbic Acid [Vitamin C] 500 mg PO BID 08/21/15 [History] Atorvastatin Calcium [Lipitor] 20 mg PO Q48H 08/21/15 [History] Ezetimibe [Zetia] 10 mg PO Q48H 08/21/15 [History] Gabapentin 300 mg PO BID@1800,2100 08/21/15 [History] Pioglitazone HCl [Actos] 15 mg PO DAILY 08/21/15 [History] amLODIPine [Norvasc] 5 mg PO BID 08/21/15 [History] Calcium Carb-Vit D 500Mg-5Mcg [Oscal 500+D 5 Mcg (200 Iu)] 1 tab PO HS 06/01/16 [History] INSULIN LISPRO (humaLOG) [humaLOG] 9 units SQ BID@0900,1800 06/01/16 [History] Insulin Glargine [Lantus] 10 unit SQ HS 06/01/16 [History] Multivitamins, Thera [Multivitamin (formulary)] 1 tab PO DAILY 11/17/16 [History] Cranberry Concentrate 300mg 300 mg PO BID 11/04/19 [History] Ergocalciferol [Vitamin D2 (DRISDOL)] 50,000 unit PO TU 11/04/19 [History] Ferrous Sulfate [Iron (65 MG Elemental)] 325 mg PO BID 11/04/19 [History] metFORMIN HCL [Glucophage] 1,000 mg PO BID-W/MEALS 11/04/19 [History] Nitroglycerin Sl Tabs [Nitrostat] 0.4 mg SUBLINGUAL Q5M PRN #25 tab 11/06/19 [Rx] INSULIN LISPRO (humaLOG) [humaLOG] 8 units SQ AC-LUNCH 07/06/20 [History] Acetaminophen/Diphenhydramine [Tylenol PM 500-25mg] 1 tab PO HS 09/09/20 [History] Isosorbide Mononitrate ER [Imdur] 60 mg PO BID 09/09/20 [History] Lysine HCl [l-Lysine] 1,000 mg PO W/LUNCH 09/09/20 [History] Metoprolol Tartrate [Lopressor] 75 mg PO QAM 09/09/20 [History] Diclofenac Sodium Gel [Voltaren Gel] 2 gm TOPICAL QID #1 tube 09/12/20 [Rx] Aspirin 81 mg PO HS 11/19/20 [History] Acetaminophen Tab [Tylenol] 650 mg PO Q6HR PRN tab 11/20/20 [Rx] Follow up Appointment(s)/Referral(s): Hang Shepard DO [Doctor of Osteopathic Medicine] - 3 Days Dariusz Jacques DO [STAFF PHYSICIAN] - 1-2 days Activity/Diet/Wound Care/Special Instructions: Please return to the Emergency Department if symptoms worsen or any other concerns. Discharge Disposition: HOME WITH HOSPICE
[2020-11-20] MEDS: GABAPENTIN 300 MG CAP PO SCH (17:43)
[2020-11-20 18:01] LABS: Glucose,Whole Blood 151 mg/dL (75-99)
--- NOTE | 2020-11-22 09:34 | CDI ---
Documentation Clarification Form Date: 11/22/2020 09:31:00 AM From: Reina New CCS Admit Date: 11/19/2020 08:13:00 AM Patient Name: Kaylee Glalegos Visit Number: [id number] Discharge Date: 11/20/2020 06:53:00 PM ATTENTION: The Clinical Documentation Specialists (CDI) and [facility] Coding Staff appreciate your assistance in clarifying documentation. Please respond to the clarification below the line at the bottom and electronically sign. The CDI & [facility] Coding staff will review the response and follow-up if needed. Please note: Queries are made part of the Legal Health Record. If you have any questions, please contact the author of this message via ITS. Dr. Maurice Ash A pressure ulcer was documented in the H&P, DS. DS documents: I have reservations regarding this patient's understanding of hospice despite her qualifying based on criteria for protein calorie malnutrition given albumin of 2.8 and 20kg weight loss with stage II decubitus ulcers. History/Risk Factors: Failure to Thrive, Morbid Obesity, DM, HTN, CAD, Fall with fracture R Fibula Clinical Indicators: Stage II pressure ulcer, Requires transfer from bed to chair Location: Not documented Wound description: Stage II pressure ulcer Treatment: None documented Elements for accurate and compliant documentation of an ulcer: *The location/laterality of the ulcer *Etiology (decubitus/pressure, diabetic, PVD) *Stage I-IV, Unstageable, Suspected Deep Tissue Injury (To the deepest stage) *If the ulcer was present at admission (POA) or occurred after admission In your professional opinion, can you please clarify the diagnosis, location, laterality and whether present on admission (POA): Stage 2 Pressure/Decubitus Ulcer (Partial thickness, loss of dermis, pink wound bed) Other condition, please specify Unable to determine Stage 2 Ulcer MTDD
--- NOTE | 2020-11-22 09:44 | CDI ---
Documentation Clarification Form Date: 11/22/2020 09:41:00 AM From: Reina eNw CCS Admit Date: 11/19/2020 08:13:00 AM Patient Name: Kaylee Gallegos Visit Number: [id number] Discharge Date: 11/20/2020 06:53:00 PM ATTENTION: The Clinical Documentation Specialists (CDI) and [facility] Coding Staff appreciate your assistance in clarifying documentation. Please respond to the clarification below the line at the bottom and electronically sign. The CDI & [facility] Coding staff will review the response and follow-up if needed. Please note: Queries are made part of the Legal Health Record. If you have any questions, please contact the author of this message via ITS. Dr. Maurice Ash Malnutrition has been documented in Discharge Summary. ED Note documents: Failure to Thrive DS documents: I have reservations regarding this patient's understanding of hospice despite her qualifying based on criteria for protein calorie malnutrition given albumin of 2.8 and 20kg weight loss with stage II decubitus ulcers. History/Risk Factors: DM, HTN, Fall with fracture, Morbid Obesity, Failure to Thrive Clinical Indicators: Malnutrition Labs: Albumin 2.8, Total Protein 6.1 Current BMI: 42.9 Treatment: Nutrition assessment, Goal 75% of estimated nutritional needs Dietary Consult: 11/20/20 In your professional opinion, can you please clarify if these findings signify one of the following conditions? _ Mild Protein-Calorie Malnutrition _ Moderate Protein-Calorie Malnutrition _ Severe Protein-Calorie Malnutrition _ Malnutrition, unspecified _ Malnutrition following GI surgery Other condition, please specify Unable to determine Mild Protein-Calorie Malnutrition MTDD
== END 2020-11-20 18:53 | disposition hospice, home (50) ==
LOC: SUPCPDRO 06:34 → EC 06:34 → 5NMEDONC 08:13 → INTOOBSV 08:13 → 5NMEDONC 18:41 → 4SSUR 21:55 → 5NMEDONC 21:58 → 1SOBS 23:13 → UNDODISIN 11-20 18:53
PROVIDERS: ADMIT Internal Medicine; ATTEND Internal Medicine
DX: S89.301A Unspecified physeal fracture of lower end of right fibula, initial encounter for closed fracture (principal); E66.01 Morbid (severe) obesity due to excess calories; Z68.41 Body mass index [BMI] 40.0-44.9, adult; E46 Unspecified protein-calorie malnutrition; R62.7 Adult failure to thrive; L89.92 Pressure ulcer of unspecified site, stage 2; I25.10 Atherosclerotic heart disease of native coronary artery without angina pectoris; E78.5 Hyperlipidemia, unspecified; I11.0 Hypertensive heart disease with heart failure; E11.42 Type 2 diabetes mellitus with diabetic polyneuropathy; G62.9 Polyneuropathy, unspecified; S92.311A Displaced fracture of first metatarsal bone, right foot, initial encounter for closed fracture; R26.9 Unspecified abnormalities of gait and mobility; M21.371 Foot drop, right foot; M85.871 Other specified disorders of bone density and structure, right ankle and foot; Z66 Do not resuscitate; H91.90 Unspecified hearing loss, unspecified ear; Z20.822 Contact with and (suspected) exposure to COVID-19; I25.2 Old myocardial infarction; M19.90 Unspecified osteoarthritis, unspecified site; Z87.11 Personal history of peptic ulcer disease; Z87.19 Personal history of other diseases of the digestive system; Z87.891 Personal history of nicotine dependence; Z90.49 Acquired absence of other specified parts of digestive tract; Z90.710 Acquired absence of both cervix and uterus; Z96.643 Presence of artificial hip joint, bilateral; Z79.899 Other long term (current) drug therapy; Z79.4 Long term (current) use of insulin; Z79.82 Long term (current) use of aspirin; Z88.0 Allergy status to penicillin; Z88.1 Allergy status to other antibiotic agents; Z88.5 Allergy status to narcotic agent; Z88.6 Allergy status to analgesic agent; W01.0XXA Fall on same level from slipping, tripping and stumbling without subsequent striking against object, initial encounter; Z98.890 Other specified postprocedural states; Z82.49 Family history of ischemic heart disease and other diseases of the circulatory system; Z82.3 Family history of stroke; Z80.9 Family history of malignant neoplasm, unspecified; Z83.3 Family history of diabetes mellitus
CPT/HCPCS: 29515; 96376 ×2; 96372 ×2; 96374; 99285; 80053; 80048; 83735 ×2; 85025 ×2; 87635; 73600; 73620; 71045; G0378 ×3; J2270 ×2; J1644 ×2; J1170